=== PATIENT | male | born 1985 | race Caucasian/White ===

== ENCOUNTER 2018-08-21 01:15 | Emergency (ER) | payer BC ==
[2018-08-21] MEDS ORDERED: predniSONE 50 MG TAB PO STA (02:07)
[2018-08-21] MEDS ORDERED: diphenhydrAMINE 50 MG CAP PO STA (02:07)
[2018-08-21] MEDS ORDERED: FAMOTIDINE 20 MG TAB PO STA (02:08)
[2018-08-21 02:57] VITALS: BP 133/89; PULSE 95; RESP 17; TEMP 97.8
--- NOTE | 2018-08-21 03:31 | ED ---
General Adult HPI - General Chief complaint: Allergic Reaction Stated complaint: Allergic reaction Time Seen by Provider: 08/21/18 02:02 Source: patient, RN notes reviewed, old records reviewed Mode of arrival: ambulatory Limitations: no limitations - History of Present Illness Initial comments: 32-year-old male patient with no pertinent past medical history presents ED with approximately 3 days of rash on her back and torso which is pruritic, mild amount of periorbital edema. Patient reports this has been ongoing for approximately 3 days. Patient believes that is secondary to his using a new fabric softener. Patient denies any respiratory put complaints, patient has any wheezing, difficulty breathing. Patient has a nausea vomiting diarrhea or abdominal pain. Patient denies any swelling of the lips, sensation of throat closing. Patient has taken Benadryl at home with limited success. Patient has had similar ALLERGIC reactions in the past. Patient denies any personal history of anaphylaxis. Systemic: Pt denies fatigue, myalgia, fever/chills. Pt denies weakness, night sweats, weight loss. Neuro: Pt denies headache, visual disturbances, syncope or pre-syncope. HEENT: Pt denies ocular discharge or irritation, otalgia, rhinorrhea, pharyngitis or notable lymphadenopathy. Cardiopulmonary: Pt denies chest pain, SOB, heart palpitations, dyspnea on exertion. Abdominal/GI: Pt denies abdominal pain, n/v/d. : Pt denies dysuria, burning w/ urination, frequency/urgency. Denies new onset urinary or bowel incontinence. MSK: Pt denies myalgia, loss of strength or function in extremities. Neuro: Pt denies new onset weakness, paresthesias. - Related Data Previous Rx's Medication Instructions Recorded EPINEPHrine [Epipen 2-Johny] 0.3 mg IM ONCE PRN #1 pack 08/21/18 Famotidine [Pepcid] 20 mg PO Q24HR 5 Days #5 tablet 08/21/18 diphenhydrAMINE [Benadryl] 50 mg PO Q24HR 5 Days #5 capsule 08/21/18 predniSONE 50 mg PO DAILY #4 tab 08/21/18 Allergies Allergy/AdvReac Type Severity Reaction Status Date / Time No Known Allergies Allergy Verified 08/21/18 01:39 Review of Systems ROS Statement: Those systems with pertinent positive or pertinent negative responses have been documented in the HPI. ROS Other: All systems not noted in ROS Statement are negative. Past Medical History Past Medical History: No Reported History History of Any Multi-Drug Resistant Organisms: None Reported Past Surgical History: Orthopedic Surgery Past Psychological History: No Psychological Hx Reported Smoking Status: Never smoker Past Alcohol Use History: None Reported Past Drug Use History: None Reported General Exam - General Exam Comments Initial Comments: Constitutional: NAD, AOX3, Pt has pleasant affect. HEENT: NC/AT, trachea midline, neck supple, no lymphadenopathy. Posterior pharynx non erythematous, without exudates. External ears appear normal, without discharge. Mucous membranes moist. Eyes PERRLA, EOM intact. There is no scleral icterus. No pallor noted. Cardiopulmonary: RRR, no murmurs, rubs or gallops, no JVD noted. Lungs CTAB in anterior and posterior little. No peripheral edema. Abdominal exam: Abdomen soft and non-distended. Abdomen non-tender to palpation in all 4 quadrants. Bowel sounds active in LLQ. No hepatosplenomegaly. No ecchymosis Neuro: CN II-XII grossly intact. No nuchal rigidity. MSK: No posterior calf tenderness bilaterally, homans sign negative bilaterally. Posterior tibialis and radial pulse +2 bilaterally. Sensation intact in upper and lower extremities. Full active ROM in upper and lower extremities, 5/5 stregnth. Derm: Erythematous pruritic rash noted on back and torso, blanchable, pruritic. IMproved with admnistration of oral medications. Mild amount of periorbital edema noted. Limitations: no limitations Course Vital Signs 08/21/18 08/21/18 01:36 02:56 Temperature 97.7 F 97.8 F Pulse Rate 94 95 Respiratory 18 17 Rate Blood Pressure 120/80 133/89 O2 Sat by Pulse 96 100 Oximetry Medical Decision Making - Medical Decision Making 32-year-old male patient with no pertinent past medical history presents ED with approximately 3 days of rash on her back and torso which is pruritic, mild amount of periorbital edema. Patient reports this has been ongoing for approximately 3 days. Patient believes that is secondary to his using a new fabric softener. Patient denies any respiratory put complaints, patient has any wheezing, difficulty breathing. Patient has a nausea vomiting diarrhea or abdominal pain. Patient denies any swelling of the lips, sensation of throat closing. Patient has taken Benadryl at home with limited success. Patient has had similar ALLERGIC reactions in the past. Patient denies any personal history of anaphylaxis. Vital signs stable, afebrile. Physical exam displayed: Erythematous pruritic rash noted on back and torso, blanchable, pruritic. IMproved with admnistration of oral medications. Lungs clear to auscultation bilaterally, no wheeze. Mild amount of periorbital edema noted. Patient diagnosed general was lifting reaction. Patient discharged with oral course of prednisone, Pepcid and Benadryl. Patient also prescribed EpiPen. Patient to follow up with primary care provider in 1-2 days. Patient to return to ED if descends symptoms develop or condition worsens in any way. Strict return precautions, patient verbalized understanding. Case discussed with Dr. Barfield. Disposition Clinical Impression: Allergic reaction Disposition: HOME SELF-CARE Condition: Stable Instructions (If sedation given, give patient instructions): General Allergic Reaction (ED) Additional Instructions: Patient to adhere to previously discussed treatment plan and will take medication(s) as directed. Patient to follow up with PCP in 1-2 days. Patient to return to ED if symptoms do not improve. Please take medications as prescribed. Please follow-up with primary care provider in 1-2 days. Return to ER if condition worsens in any way. Return to ER immediately if any new facial swelling develops, sensation of shortness of breath, sensation of throat closing. Prescriptions: diphenhydrAMINE [Benadryl] 50 mg PO Q24HR 5 Days #5 capsule EPINEPHrine [Epipen 2-Johny] 0.3 mg IM ONCE PRN #1 pack PRN Reason: Anaphylaxis Famotidine [Pepcid] 20 mg PO Q24HR 5 Days #5 tablet predniSONE 50 mg PO DAILY #4 tab Is patient prescribed a controlled substance at d/c from ED?: No Referrals: Chase Haas MD [Primary Care Provider] - 1-2 days
== END 2018-08-21 03:38 | disposition home or self-care (01) ==
LOC: EC 01:15
DX: T78.49XA Other allergy, initial encounter (principal)
CPT/HCPCS: 99283; J7512

== ENCOUNTER → 2018-09-01 | Outpatient (CLI) | payer BC ==
--- NOTE | 2018-09-01 22:42 | MR ---
EXAMINATION TYPE: MR knee LT wo con DATE OF EXAM: 09/01/2018 COMPARISON: Outside left knee x-ray August 20, 2018. HISTORY: Lt knee increasing inner pain x 1 year, no trauma TECHNIQUE: Multiplanar, multisequence images of the knee is performed without IV contrast. FINDINGS: MEDIAL MENISCUS: Anterior and posterior horns are intact without tear. LATERAL MENISCUS: Anterior and posterior horns are intact without tear. CRUCIATE LIGAMENTS: The anterior and posterior cruciate ligaments are intact and unremarkable. COLLATERAL LIGAMENTS: The medial collateral ligament and lateral collateral ligament complex are inta ct and unremarkable. EXTENSOR MECHANISM: Visualized quadriceps and patellar tendons are intact. EFFUSION: No significant suprapatellar joint effusion. POPLITEAL CYST: No popliteal/lopez cyst. TRICOMPARTMENT SPACES: Mild to moderate narrowing inferior patellofemoral compartment is present. The medial and lateral tibiofemoral compartments are preserved. No significant spurring is seen. CARTILAGE: Some chondromalacia patella is present with thinning of articular cartilage along the infe rior medial aspect of the patellar pole. BONE MARROW SIGNAL: No focal abnormal marrow signal is appreciated. OTHER: No additional significant abnormality is appreciated. IMPRESSION: 1. No meniscal or ligamentous tear is seen. 2. Mild to moderate patellofemoral compartment degenerative changes as detailed above.
== END | disposition home or self-care (01) ==
LOC: RADMRIMAIN 17:55 → EDUNIT# 18:45
PROVIDERS: ATTEND Orthopaedic Surgery
DX: M17.12 Unilateral primary osteoarthritis, left knee (principal)

== ENCOUNTER 2018-09-02 20:49 | Emergency (ER) | payer BC, OTHER ==
[2018-09-02 21:21] VITALS: BP 138/80; PULSE 73; RESP 18; TEMP 98.4
== END 2018-09-02 22:25 | disposition home or self-care (01) ==
LOC: EC 20:49
DX: Z02.89 Encounter for other administrative examinations (principal)

== ENCOUNTER 2022-02-12 10:17 | Emergency (ER) | payer OTHER ==
[2022-02-12 11:04] VITALS: BP 120/73; PULSE 63; RESP 16; TEMP 97.9
[2022-02-12] MEDS ORDERED: SODIUM CHLORIDE 0.9% 1,000 ML IV STA (11:09)
[2022-02-12] MEDS ORDERED: HYDROmorphone 0.5 MG/0.5 ML SYRINGE IVP STA (11:09)
[2022-02-12 11:35] LABS: Basophils % (A) 0 %; Eosinophils # (A) 0.1 k/uL (0-0.7); Eosinophils % (A) 1 %; HCT 45.4 % (39.0-53.0); HGB 15.4 gm/dL (13.0-17.5); Lymphocytes % (A) 19 %; MCH 29.8 pg (25.0-35.0); MCHC 33.9 g/dL (31.0-37.0); Mean Platelet Volume 8.2; Monocytes # (A) 0.3 k/uL (0-1.0); Monocytes % (A) 6 %; Neutrophils # (A) 3.8 k/uL (1.3-7.7); Neutrophils % (A) 72 %; Platelet Count 219 k/uL (150-450); RBC 5.15 m/uL (4.30-5.90); RDW 12.2 % (11.5-15.5); WBC 5.2 k/uL (3.8-10.6)
--- NOTE | 2022-02-12 11:41 | ED ---
Abdominal Pain HPI - General Chief Complaint: Abdominal Pain Stated Complaint: swollen liver sent by urgent care Time Seen by Provider: 02/12/22 11:09 Source: patient, RN notes reviewed, old records reviewed Mode of arrival: ambulatory Limitations: no limitations - History of Present Illness Initial Comments: 36-year-old male presents to the emergency room with complaints of right upper quadrant fullness since October. He does have history of rheumatoid arthritis and takes Humira. 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 He states he does not take any other medication on a daily basis other than vitamins. He denies any fevers, no nausea vomiting or diarrhea. No right lower quadrant pain. No dysuria or penile discharge. No testicular pain. MD Complaint: abdominal pain -: month(s) (4) Location: RUQ Radiation: none Severity scale (1-10): 2 Quality: other (fullness) Consistency: constant Improves With: nothing Worsens With: nothing Associated Symptoms: denies other symptoms - Related Data Home Medications Medication Instructions Recorded Confirmed traZODone HCL 50 mg PO HS PRN 09/02/18 02/12/22 Adalimumab [Humira(Cf) Pen] 40 mg SQ Q14D 02/12/22 02/12/22 Kratom Powder(Unknown) 1 tsp PO HS PRN 02/12/22 02/12/22 Magnesium Powder(Unknown) 1 tsp PO HS 02/12/22 02/12/22 Milk Thistle(Unknown) 1 tab PO HS 02/12/22 02/12/22 Turmeric(Unknown) 1 tab PO HS 02/12/22 02/12/22 Vitamin C(Unknown) 1 tab PO HS 02/12/22 02/12/22 Vitamn D3(Unknown) 1 tab PO HS 02/12/22 02/12/22 Allergies Allergy/AdvReac Type Severity 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 ROS Other: All systems not noted in ROS Statement are negative. Past Medical History Past Medical History: Rheumatoid Arthritis (RA) History of Any Multi-Drug Resistant Organisms: None Reported Past Surgical History: Orthopedic Surgery Past Psychological History: No Psychological Hx Reported Smoking Status: Former smoker Past Alcohol Use History: None Reported Past Drug Use History: None Reported General Exam Limitations: no limitations General appearance: alert, in no apparent distress Head exam: Present: atraumatic, normocephalic, normal inspection Eye exam: Present: normal appearance. Absent: scleral icterus, conjunctival injection, periorbital swelling Neck exam: Present: full ROM. Absent: tenderness, meningismus Respiratory exam: Present: normal lung sounds bilaterally. Absent: respiratory distress, wheezes, rales, rhonchi, stridor, chest wall tenderness, accessory muscle use Cardiovascular Exam: Present: regular rate GI/Abdominal exam: Present: soft. Absent: distended, tenderness, guarding, rebound, rigid, mass Extremities exam: Present: normal inspection, full ROM, normal capillary refill. Absent: tenderness, pedal edema Back exam: Present: normal inspection, full ROM. Absent: tenderness, CVA tenderness (R), CVA tenderness (L), rash noted Neurological exam: Present: alert, oriented X3 Psychiatric exam: Present: normal affect, normal mood Skin exam: Present: warm, dry, intact, normal color. Absent: cyanosis, diaphoretic, petechiae, pallor Course Vital Signs 02/12/22 11:02 Temperature 97.9 F Pulse Rate 63 Respiratory 16 Rate Blood Pressure 120/73 O2 Sat by Pulse 100 Oximetry Medical Decision Making - Medical Decision Making 36-year-old male with a history of rheumatoid arthritis taking Humira, presents with right upper quadrant abdominal pain since October. Worse with palpation. Denies any nausea vomiting diarrhea or fevers. Labs show no evidence of leukocytosis. LFTs are within normal limits. No evidence of lactic acidosis. CT abdomen and pelvis shows no convincing evidence of an abdominal process. There are nonobstructing bilateral renal calculi. Patient states that he has been googling his symptoms and states it seems consistent with costochondritis. He was directed to increase fluid intake, take Tylenol and or Motrin as needed for any pain or discomfort and follow up with his primary care doctor. He is agreeable to this plan of care. Case discussed with Dr. Rodrigues. - Lab Data Result diagrams: 02/12/22 11:28 02/12/22 11:28 Lab Results 02/12/22 02/12/22 02/12/22 Range/Units 11:28 11:28 11:28 WBC 5.2 (3.8-10.6) k/uL RBC 5.15 (4.30-5.90) m/uL Hgb 15.4 (13.0-17.5) gm/dL Hct 45.4 (39.0-53.0) % MCV 88.0 (80.0-100.0) fL MCH 29.8 (25.0-35.0) pg MCHC 33.9 (31.0-37.0) g/dL RDW 12.2 (11.5-15.5) % Plt Count 219 (150-450) k/uL MPV 8.2 Neutrophils % 72 % Lymphocytes % 19 % Monocytes % 6 % Eosinophils % 1 % Basophils % 0 % Neutrophils # 3.8 (1.3-7.7) k/uL Lymphocytes # 1.0 (1.0-4.8) k/uL Monocytes # 0.3 (0-1.0) k/uL Eosinophils # 0.1 (0-0.7) k/uL Basophils # 0.0 (0-0.2) k/uL PT 10.1 (9.0-12.0) sec INR 0.9 (<1.2) APTT 27.3 (22.0-30.0) sec Sodium 137 (137-145) mmol/L Potassium 4.4 (3.5-5.1) mmol/L Chloride 97 L (98-107) mmol/L Carbon Dioxide 28 (22-30) mmol/L Anion Gap 12 mmol/L BUN 13 (9-20) mg/dL Creatinine 0.74 (0.66-1.25) mg/dL Est GFR (CKD-EPI)AfAm >90 (>60 ml/min/1.73 sqM) Est GFR (CKD-EPI)NonAf >90 (>60 ml/min/1.73 sqM) Glucose 96 (74-99) mg/dL Plasma Lactic Acid Grady (0.7-2.0) mmol/L Calcium 9.7 (8.4-10.2) mg/dL Total Bilirubin 0.7 (0.2-1.3) mg/dL AST 26 (17-59) U/L ALT 23 (4-49) U/L Alkaline Phosphatase 68 (38-126) U/L Total Protein 7.7 (6.3-8.2) g/dL Albumin 5.0 (3.5-5.0) g/dL Amylase 62 (30-110) U/L Lipase 66 (23-300) U/L 02/12/22 Range/Units 11:28 WBC (3.8-10.6) k/uL RBC (4.30-5.90) m/uL Hgb (13.0-17.5) gm/dL Hct (39.0-53.0) % MCV (80.0-100.0) fL MCH (25.0-35.0) pg MCHC (31.0-37.0) g/dL RDW (11.5-15.5) % Plt Count (150-450) k/uL MPV Neutrophils % % Lymphocytes % % Monocytes % % Eosinophils % % Basophils % % Neutrophils # (1.3-7.7) k/uL Lymphocytes # (1.0-4.8) k/uL Monocytes # (0-1.0) k/uL Eosinophils # (0-0.7) k/uL Basophils # (0-0.2) k/uL PT (9.0-12.0) sec INR (<1.2) APTT (22.0-30.0) sec Sodium (137-145) mmol/L Potassium (3.5-5.1) mmol/L Chloride (98-107) mmol/L Carbon Dioxide (22-30) mmol/L Anion Gap mmol/L BUN (9-20) mg/dL Creatinine (0.66-1.25) mg/dL Est GFR (CKD-EPI)AfAm (>60 ml/min/1.73 sqM) Est GFR (CKD-EPI)NonAf (>60 ml/min/1.73 sqM) Glucose (74-99) mg/dL Plasma Lactic Acid Grady 0.7 (0.7-2.0) mmol/L Calcium (8.4-10.2) mg/dL Total Bilirubin (0.2-1.3) mg/dL AST (17-59) U/L ALT (4-49) U/L Alkaline Phosphatase (38-126) U/L Total Protein (6.3-8.2) g/dL Albumin (3.5-5.0) g/dL Amylase (30-110) U/L Lipase (23-300) U/L Disposition Clinical Impression: Costochondritis, Abdominal pain Disposition: HOME SELF-CARE Condition: Good Instructions (If sedation given, give patient instructions): Costochondritis (ED), Abdominal Pain (ED) Additional Instructions: Increase your fluid intake. Tylenol and or Motrin as needed for pain. Follow- up with the primary care doctor this week. Return with any new or concerning symptoms. Is patient prescribed a controlled substance at d/c from ED?: No Referrals: None,Stated [Primary Care Provider] - 1-2 days Time of Disposition: 13:24
[2022-02-12 11:45] LABS: INR 0.9 (<1.2); Partial Thromboplastin Time 27.3 sec (22.0-30.0); Prothrombin Time 10.1 sec (9.0-12.0)
[2022-02-12 11:57] LABS: ALT 23 U/L (4-49); AST 26 U/L (17-59); African American GFR (CKD) >90 (>60 ml/min/1.73 sqM); Alkaline Phosphatase 68 U/L (38-126); Amylase 62 U/L (30-110); Anion Gap 12 mmol/L; Blood Urea Nitrogen 13 mg/dL (9-20); Calcium 9.7 mg/dL (8.4-10.2); Carbon Dioxide 28 mmol/L (22-30); Chloride 97 mmol/L (98-107); Glucose 96 mg/dL (74-99); Lipase 66 U/L (23-300); Non-African American GFR(CKD) >90 (>60 ml/min/1.73 sqM); Potassium 4.4 mmol/L (3.5-5.1); Sodium 137 mmol/L (137-145); Total Bilirubin 0.7 mg/dL (0.2-1.3); Total Protein 7.7 g/dL (6.3-8.2)
--- NOTE | 2022-02-12 13:13 | CT ---
EXAMINATION TYPE: CT abdomen pelvis w con CT DLP: 671.5 mGycm, Automated exposure control for dose reduction was used. DATE OF EXAM: 02/12/2022 12:36 PM COMPARISON: None CLINICAL INDICATION:Male, 36 years old with history of abdominal pain; c/o pain under right side of r ibs TECHNIQUE: Axial CT of the abdomen and pelvis. Sagittal and coronal reformats were created on a [employer] workstation. Contrast used:100 mL of Isovue 300 with IV Contrast, Oral contrast used: without Oral Contrast FINDINGS: LOWER CHEST: Unremarkable ABDOMEN LIVER: Unremarkable GALLBLADDER AND BILE DUCTS: Unremarkable. PANCREAS: Unremarkable. SPLEEN: Unremarkable. ADRENAL GLANDS: Unremarkable. KIDNEYS AND URETERS: No evidence of hydronephrosis. Nonobstructing bilateral renal calculi measuring up to 3 mm on the right and 3 mm on the left. PELVIS BLADDER: Unremarkable REPRODUCTIVE: Unremarkable. ABDOMEN & PELVIS STOMACH AND BOWEL: No evidence of bowel obstruction. The appendix isn't visualized and appears normal . There is mild fat stranding changes seen around right paracolic gutter without evidence for wall th ickening. PERITONEUM: No evidence of pneumoperitoneum or free fluid. VASCULATURE: No evidence of aortic aneurysm. Anatomic variant common origin of the celiac trunk and s uperior mesenteric artery. There is circumaortic left renal veins. MUSCULOSKELETAL: No acute osseous abnormalities LYMPH NODES: No gross evidence for lymphadenopathy. SOFT TISSUE/ABDOMINAL WALL: Unremarkable IMPRESSION: 1. No convincing evidence for acute abdominal process. There is slight limited evaluation secondary to paucity of intraabdominal fat. Mild inflammation changes are seen along the paracolic gutter on th e right however the colon does not demonstrate wall thickening. 2. Obstructing bilateral renal calculi.
== END 2022-02-12 13:35 | disposition home or self-care (01) ==
LOC: EC 10:17
DX: M94.0 Chondrocostal junction syndrome [Tietze] (principal); R10.9 Unspecified abdominal pain; Z87.891 Personal history of nicotine dependence; Z91.09 Other allergy status, other than to drugs and biological substances
CPT/HCPCS: 36415; 80053; 82150; 83605; 83690; 85025; 85610; 85730; 74177; 99284; 96360; Q9967

== ENCOUNTER → 2022-08-19 | Outpatient (CLI) | payer BC ==
--- NOTE | 2022-08-19 11:30 | US ---
EXAMINATION TYPE: US abdomen complete DATE OF EXAM: 08/19/2022 COMPARISON: CT 02/12/2022 CLINICAL HISTORY: R10.11. RUQ pain. Hx kidney stones. TECHNIQUE: Multiple sonographic images of the abdomen are obtained. FINDINGS: EXAM MEASUREMENTS: Liver Length: 15.0 cm Gallbladder Wall: 0.21 cm CBD: 0.49 cm Spleen: 8.7 cm Right Kidney: 11.8 x 6.5 x 4.9 cm Left Kidney: 11.7 x 5.8 x 5.9 cm BUSINESS PROCESS LEAD NOTES: Limited due to gas. Pancreas: Slightly limited. Duct measures 0.1 cm. Liver: No abnormalities seen. Gallbladder: Internal echoes/debris seen within the gallbladder. Arrow shown. Evidence for sonographic Baires's sign: No CBD: Portions seen appear wnl Spleen: Appears wnl Right Kidney: Hyperechoic focus seen upper pole: 0.4 x 0.5 x 0.5 cm. Left Kidney: Hyperechoic focus seen at mid: 0.5 x 0.4 x 0.4 cm. Upper IVC: Appears wnl Abd Aorta: Portions seen appear wnl. Iliacs were obscured. IMPRESSION: 1. Nonobstructing bilateral renal stones. 2. Gallbladder polyp, or debris or cholelithiasis.
== END | disposition home or self-care (01) ==
LOC: RADUSWWP 06:40
PROVIDERS: ATTEND Family Medicine
DX: N20.0 Calculus of kidney (principal)
CPT/HCPCS: 76700

== ENCOUNTER 2022-11-26 14:15 | Emergency (ER) | payer BC ==
[2022-11-26] MEDS ORDERED: ONDANSETRON 4 MG/2 ML VIAL IVP STA (15:11)
[2022-11-26] MEDS ORDERED: MORPHINE SULFATE 4 MG/ML SYRINGE IVP STA (15:11)
--- NOTE | 2022-11-26 15:11 | ED ---
General Adult HPI - General Chief complaint: Urogenital Stated complaint: abd pain Source: patient Mode of arrival: ambulatory Limitations: no limitations - History of Present Illness Initial comments: Saad is a healthy 37-year-old male who presents ER today for evaluation of r ight-sided flank pain. Patient reports yesterday he had some pain in his right lower quadrant today the pain is of his right flank. Patient states he has urge to urinate but can only dribble. Not had any gross hematuria in the past 2 days but does report he had an episode of gross hematuria last week. No history of kidney stones. No fevers or chills. He has nausea and vomiting with the pain. No change in bowel habits. - Related Data Home Medications Medication Instructions Recorded Confirmed traZODone HCL 50 mg PO HS PRN 09/02/18 02/12/22 Adalimumab [Humira(Cf) Pen] 40 mg SQ Q14D 02/12/22 02/12/22 Kratom Powder(Unknown) 1 tsp PO HS PRN 02/12/22 02/12/22 Magnesium Powder(Unknown) 1 tsp PO HS 02/12/22 02/12/22 Milk Thistle(Unknown) 1 tab PO HS 02/12/22 02/12/22 Turmeric(Unknown) 1 tab PO HS 02/12/22 02/12/22 Vitamin C(Unknown) 1 tab PO HS 02/12/22 02/12/22 Vitamn D3(Unknown) 1 tab PO HS 02/12/22 02/12/22 Previous Rx's Medication Instructions Recorded HYDROcodone/APAP 5-325MG [[place] 1 tab PO Q6HR PRN 3 Days #8 tab 11/26/22 5-325] Ibuprofen [Motrin] 600 mg PO Q6HR PRN #30 tab 11/26/22 Ondansetron Odt [Zofran Odt] 4 mg PO Q8HR PRN #12 tab 11/26/22 Tamsulosin [Flomax] 0.4 mg PO DAILY #7 cap 11/26/22 Allergies Allergy/AdvReac Type Severity 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 ROS Other: All systems not noted in ROS Statement are negative. Past Medical History Past Medical History: Rheumatoid Arthritis (RA) History of Any Multi-Drug Resistant Organisms: None Reported Past Surgical History: Orthopedic Surgery Past Psychological History: No Psychological Hx Reported Smoking Status: Former smoker Past Alcohol Use History: None Reported Past Drug Use History: None Reported General Exam - General Exam Comments Initial Comments: Physical Exam GENERAL: Patient is well-developed and well-nourished. Patient is nontoxic and well-hydrated and is in no distress. HENT: Normocephalic, Atraumatic. EYES: PERRL, EOMI PULMONARY: Unlabored respirations. No audible rales rhonchi or wheezing was noted. CARDIOVASCULAR: Warm and well profused ABDOMEN: Patient with percussion in the right flank, pain palpation in the right lower q uadrant SKIN: Skin is clear with no lesions or rashes and otherwise unremarkable. : Deferred NEUROLOGIC: Patient is alert and oriented x3. Moving all extremities spontaneously MUSCULOSKELETAL: Normal extremities with adequate strength and full range of motion. No lower extremity swelling or edema. No calf tenderness. PSYCHIATRIC: Normal psychiatric evaluation. Limitations: no limitations Course Vital Signs 11/26/22 11/26/22 11/26/22 14:19 16:15 17:35 Temperature 97.9 F 98.6 F 98.2 F Pulse Rate 62 56 L 69 Respiratory 18 19 18 Rate Blood Pressure 130/84 137/78 123/69 O2 Sat by Pulse 100 99 97 Oximetry Medical Decision Making - Medical Decision Making Was pt. sent in by a medical professional or institution (, PA, COURT OFFICER, urgent care, hospital, or senior living...) When possible be specific @ -No Did you speak to anyone other than the patient for history (EMS, parent, family, police, friend...)? What history was obtained from this source @ -Family member at bedside Did you review nursing and triage notes (agree or disagree)? Why? @ -I reviewed and agree with nursing and triage notes Were old charts reviewed (outside hosp., previous admission, EMS record, old EKG, old radiological studies, urgent care reports/EKG's, senior living records)? Report findings @ -No old charts were reviewed Differential Diagnosis (chest pain, altered mental status, abdominal pain women, abdominal pain men, vaginal bleeding, weakness, fever, dyspnea, syncope, headache, dizziness, GI bleed, back pain, seizure, CVA, palpatations, mental health, musculoskeletal)? @ -Differential Abdominal Pain Men: Appendicitis, cholecystitis, diverticulosis, ischemic bowel, pancreatitis, hepatitis, UTI, gastroenteritis, AAA, incarcerated hernia, bowel obstruction, constipation, inflammatory bowel, hepatitis, peptic ulcer disease, splenic infarction, perforated viscus, testicular torsion, this is not meant to be an all-inclusive list EKG interpreted by me (3pts min.). @ -As above X-rays interpreted by me (1pt min.). @ -None done CT interpreted by me (1pt min.). @ -Evaluated the CT and I do see a very small stone at the UVJ with mild hydro-no evidence of appendicitis U/S interpreted by me (1pt. min.). @ -None done What testing was considered but not performed or refused? (CT, X-rays, U/S, labs)? Why? @ -Renal ultrasound was considered however given the patient had periumbilical pain moving to the right lower quadrant there was concern for appendicitis and it was determined that CT would be a better diagnostic modality What meds were considered but not given or refused? Why? @ -None Did you discuss the management of the patient with other professionals (professionals i.e. , PA, COURT OFFICER, lab, RT, psych nurse, addiction social worker, senior financial accountant, teacher, vessel traffic officer, case technician)? Give summary @ -No Was smoking cessation discussed for >3mins.? @ -No Was critical care preformed (if so, how long)? @ -No Were there social determinants of health that impacted care today? How? (Homelessness, low income, unemployed, alcoholism, drug addiction, transportation, low edu. Level, literacy, decrease access to med. care, half-way, rehab)? @ -No Was there de-escalation of care discussed even if they declined (Discuss DNR or withdrawal of care, Hospice)? DNR status @ -No What co-morbidities impacted this encounter? (DM, HTN, Smoking, COPD, CAD, Cancer, CVA, ARF, Chemo, Hep., AIDS, mental health diagnosis, sleep apnea, morbid obesity)? @ -None Was patient admitted / discharged? Hospital course, mention meds given and route, prescriptions, significant lab abnormalities, going to OR and other pertinent info. @ -Discharge Undiagnosed new problem with uncertain prognosis? @ -No Drug Therapy requiring intensive monitoring for toxicity (Heparin, Nitro, Insulin, Cardizem)? @ -No Were any procedures done? @ -No Diagnosis/symptom? @ -3 mm right UVJ stone with hydronephrosis Acute, or Chronic, or Acute on Chronic? @ -Acute Uncomplicated (without systemic symptoms) or Complicated (systemic symptoms)? @ -default Side effects of treatment? @ -No Exacerbation, Progression, or Severe Exacerbation? @ -No Poses a threat to life or bodily function? How? (Chest pain, USA, [place], pneumonia, PE, COPD, DKA, ARF, appy, cholecystitis, CVA, Diverticulitis, Homicidal, Suicidal, threat to staff... and all critical care pts) @ -No - Lab Data Result diagrams: 11/26/22 15:10 11/26/22 15:10 Lab Results 11/26/22 11/26/22 11/26/22 Range/Units 15:10 15:10 16:06 WBC 11.1 H (3.8-10.6) k/uL RBC 5.24 (4.30-5.90) m/uL Hgb 15.7 (13.0-17.5) gm/dL Hct 46.2 (39.0-53.0) % MCV 88.2 (80.0-100.0) fL MCH 30.0 (25.0-35.0) pg MCHC 34.0 (31.0-37.0) g/dL RDW 11.8 (11.5-15.5) % Plt Count 227 (150-450) k/uL MPV 7.7 Neutrophils % 82 % Lymphocytes % 10 % Monocytes % 6 % Eosinophils % 1 % Basophils % 0 % Neutrophils # 9.0 H (1.3-7.7) k/uL Lymphocytes # 1.1 (1.0-4.8) k/uL Monocytes # 0.7 (0-1.0) k/uL Eosinophils # 0.1 (0-0.7) k/uL Basophils # 0.0 (0-0.2) k/uL Sodium 135 L (137-145) mmol/L Potassium 4.1 (3.5-5.1) mmol/L Chloride 99 (98-107) mmol/L Carbon Dioxide 25 (22-30) mmol/L Anion Gap 11 mmol/L BUN 13 (9-20) mg/dL Creatinine 0.72 (0.66-1.25) mg/dL Est GFR (CKD-EPI)AfAm >90 (>60 ml/min/1.73 sqM) Est GFR (CKD-EPI)NonAf >90 (>60 ml/min/1.73 sqM) Glucose 89 (74-99) mg/dL Calcium 9.5 (8.4-10.2) mg/dL Total Bilirubin 0.6 (0.2-1.3) mg/dL AST 37 (17-59) U/L ALT 36 (4-49) U/L Alkaline Phosphatase 109 (38-126) U/L Total Protein 8.0 (6.3-8.2) g/dL Albumin 5.0 (3.5-5.0) g/dL Urine Color Yellow Urine Appearance Cloudy (Clear) Urine pH 7.5 (5.0-8.0) Ur Specific Sulph[place] 1.036 H (1.001-1.035) Urine Protein Trace H (Negative) Urine Glucose (UA) Negative (Negative) Urine Ketones 2+ H (Negative) Urine Blood Trace H (Negative) Urine Nitrite Negative (Negative) Urine Bilirubin Negative (Negative) Urine Urobilinogen <2.0 (<2.0) mg/dL Ur Leukocyte Esterase Negative (Negative) Urine RBC 42 H (0-5) /hpf Urine WBC <1 (0-5) /hpf Amorphous Sediment Moderate H (None) /hpf Urine Bacteria Rare H (None) /hpf Urine Mucus Rare H (None) /hpf Disposition Clinical Impression: Kidney stone Disposition: HOME SELF-CARE Condition: Stable Instructions (If sedation given, give patient instructions): Kidney Stones (ED) Prescriptions: Tamsulosin [Flomax] 0.4 mg PO DAILY #7 cap Ibuprofen [Motrin] 600 mg PO Q6HR PRN #30 tab PRN Reason: Pain HYDROcodone/APAP 5-325MG [[place] 5-325] 1 tab PO Q6HR PRN 3 Days #8 tab PRN Reason: Pain Ondansetron Odt [Zofran Odt] 4 mg PO Q8HR PRN #12 tab PRN Reason: Nausea Is patient prescribed a controlled substance at d/c from ED?: No Referrals: Shon Aggarwal MD [Primary Care Provider] - 1-2 days Travis Whiteside MD [STAFF PHYSICIAN] - 1-2 days
[2022-11-26 15:25] LABS: Basophils % (A) 0 %; Eosinophils # (A) 0.1 k/uL (0-0.7); Eosinophils % (A) 1 %; HCT 46.2 % (39.0-53.0); HGB 15.7 gm/dL (13.0-17.5); Lymphocytes # (A) 1.1 k/uL (1.0-4.8); Lymphocytes % (A) 10 %; MCV 88.2 fL (80.0-100.0); Mean Platelet Volume 7.7; Monocytes # (A) 0.7 k/uL (0-1.0); Monocytes % (A) 6 %; Neutrophils % (A) 82 %; Platelet Count 227 k/uL (150-450); RBC 5.24 m/uL (4.30-5.90); RDW 11.8 % (11.5-15.5); WBC 11.1 k/uL (3.8-10.6)
[2022-11-26 15:37] LABS: ALT 36 U/L (4-49); AST 37 U/L (17-59); African American GFR (CKD) >90 (>60 ml/min/1.73 sqM); Alkaline Phosphatase 109 U/L (38-126); Anion Gap 11 mmol/L; Blood Urea Nitrogen 13 mg/dL (9-20); Calcium 9.5 mg/dL (8.4-10.2); Carbon Dioxide 25 mmol/L (22-30); Chloride 99 mmol/L (98-107); Glucose 89 mg/dL (74-99); Non-African American GFR(CKD) >90 (>60 ml/min/1.73 sqM); Potassium 4.1 mmol/L (3.5-5.1); Sodium 135 mmol/L (137-145); Total Bilirubin 0.6 mg/dL (0.2-1.3)
--- NOTE | 2022-11-26 16:01 | CT ---
EXAMINATION TYPE: CT abdomen pelvis w con CT DLP: 653.8 mGycm, Automated exposure control for dose reduction was used. DATE OF EXAM: 11/26/2022 3:51 PM COMPARISON: CT abdomen pelvis most recent from 02/12/2022 . CLINICAL INDICATION:Male, 37 years old with history of RLQ pain; abdominal pain, urine retention TECHNIQUE: Standard CT of the abdomen and pelvis following the administration of 100 cc of Isovue 3 00 IV contrast material. Coronal and sagittal reformats were performed. FINDINGS: LOWER CHEST: Unremarkable ABDOMEN LIVER: Mildly enlarged measuring 19.5 cm in CC dimension. No focal lesion. GALLBLADDER AND BILE DUCTS: Gallbladder is not definitively visualized and may be surgically absent v ersus contracted. No biliary ductal dilatation. PANCREAS: Unremarkable. SPLEEN: Unremarkable. ADRENAL GLANDS: Unremarkable. KIDNEYS AND URETERS: Mild right hydroureteronephrosis with a obstructing 3 mm calculus at the uretero vesical junction. Nonobstructive 2 mm left renal calculus. Kidneys enhance symmetrically. Contrast is demonstrated only within the left collecting system on the delayed phase. PELVIS BLADDER: Incompletely distended but grossly unremarkable. REPRODUCTIVE: Coarse calcifications of the prostate gland are identified. ABDOMEN & PELVIS STOMACH AND BOWEL: Stomach and duodenum are unremarkable. No focal bowel wall thickening or surroundi ng inflammatory changes. The appendix is within normal limits. No evidence of bowel obstruction. PERITONEUM: No evidence of pneumoperitoneum or free fluid. VASCULATURE: No evidence of aortic aneurysm. MUSCULOSKELETAL: No acute osseous abnormalities LYMPH NODES: No gross evidence for lymphadenopathy. SOFT TISSUE/ABDOMINAL WALL: Unremarkable IMPRESSION: Mild right hydroureteronephrosis with an obstructing 3 mm calculus at the ureterovesical junction.
[2022-11-26] MEDS ORDERED: KETOROLAC 15 MG/ML 1 ML VIAL IVP STA (16:32)
[2022-11-26 16:38] LABS: Amorphous Sediment,Urine Moderate /hpf; Appearance,Urine Cloudy (Clear); Bacteria,Urine Rare /hpf; Bilirubin,Urine Negative (Negative); Blood,Urine Trace (Negative); Color,Urine Yellow; Glucose,Urine (UA) Negative (Negative); Ketones,Urine 2+ (Negative); Leukocyte Esterase,Urine Negative (Negative); Mucus,Urine Rare /hpf; Nitrite,Urine Negative (Negative); PH, Urine 7.5 (5.0-8.0); Protein,Urine Trace (Negative); RBC,Urine 42 /hpf (0-5); Specific Gravity,Urine 1.036 (1.001-1.035); Urobilinogen,Urine <2.0 mg/dL (<2.0); WBC,Urine <1 /hpf (0-5)
[2022-11-26 17:35] VITALS: BP 123/69; PULSE 69; RESP 18; TEMP 98.2
== END 2022-11-26 17:52 | disposition home or self-care (01) ==
LOC: EC 14:15
DX: N13.2 Hydronephrosis with renal and ureteral calculous obstruction (principal); M06.9 Rheumatoid arthritis, unspecified; Z87.891 Personal history of nicotine dependence; Z91.048 Other nonmedicinal substance allergy status; Z79.899 Other long term (current) drug therapy
CPT/HCPCS: 36415; 80053; 85025; 81001; 74177; 99284; 96374; 96375 ×2; J2270; J2405; J1885; Q9967

== ENCOUNTER → 2024-01-08 | Outpatient (CLI) | payer BC ==
--- NOTE | 2024-01-29 10:01 | US ---
Site ID [facility] Patient Saad Woo L ID [id number] Age/Gender: 38Y, M Order # N/A Procedure US bladder Date 01/08/2024 4:01:00 PM INDICATION: Patient age: Male; 38 year old; Reason for study: Difficulty voiding, recent passage of renal stone COMPARISON: CT abdomen and pelvis 11/26/2022. TECHNIQUE: Multiple chamberlain-scale and color color Doppler ultrasound images were obtained of the urinary bladder. FINDINGS: URINARY BLADDER: within normal limits. No wall thickening. Bilateral ureteral jets identified. IMPRESSION: Unremarkable ultrasound of the urinary bladder.
== END | disposition home or self-care (01) ==
LOC: RADUSWWP 12:00
PROVIDERS: ATTEND Family Medicine
DX: N20.0 Calculus of kidney (principal)
CPT/HCPCS: 76857

== ENCOUNTER 2024-05-05 16:52 | Emergency (ER) | payer BC ==
[2024-05-05 17:00] VITALS: TEMP 97.6
--- NOTE | 2024-05-05 17:03 | ED ---
Seizure HPI - General Chief Complaint: Seizure Stated Complaint: seizure Time Seen by Provider: 05/05/24 16:56 Source: patient, EMS, RN notes reviewed, old records reviewed Mode of arrival: ambulatory Limitations: no limitations - History of Present Illness Initial Comments: This is a 38-year-old male for new onset seizure patient is currently awake and alert was initially postictal. Patient is going through processes of having evaluation of a neck tumor per the and possible surgery. Patient did recently started on tramadol for neck pain MD Complaint: seizure -: hour(s) Description of Episode: loss of consciousness, tonic-clonic movement -: second(s) Witnessed: no Seizure History: other (We started on tramadol) Place: home Possible Precipitating Event: none Associated Symptoms: denies other symptoms Treatments Prior to Arrival: none - Related Data Home Medications Medication Instructions Recorded Confirmed traZODone HCL 50 mg PO HS PRN 09/02/18 02/12/22 Adalimumab [Humira(Cf) Pen] 40 mg SQ Q14D 02/12/22 02/12/22 Kratom Powder(Unknown) 1 tsp PO HS PRN 02/12/22 02/12/22 Magnesium Powder(Unknown) 1 tsp PO HS 02/12/22 02/12/22 Milk Thistle(Unknown) 1 tab PO HS 02/12/22 02/12/22 Turmeric(Unknown) 1 tab PO HS 02/12/22 02/12/22 Vitamin C(Unknown) 1 tab PO HS 02/12/22 02/12/22 Vitamn D3(Unknown) 1 tab PO HS 02/12/22 02/12/22 Previous Rx's Medication Instructions Recorded HYDROcodone/APAP 5-325MG [[place] 1 tab PO Q6HR PRN 3 Days #8 tab 11/26/22 5-325] Ibuprofen [Motrin] 600 mg PO Q6HR PRN #30 tab 11/26/22 Ondansetron Odt [Zofran Odt] 4 mg PO Q8HR PRN #12 tab 11/26/22 Tamsulosin [Flomax] 0.4 mg PO DAILY #7 cap 11/26/22 Allergies Allergy/AdvReac Type Severity 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 ROS Other: All systems not noted in ROS Statement are negative. 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 Absent: scleral icterus, conjunctival injection, periorbital swelling ENT exam: Present: normal exam, mucous membranes moist Neck exam: Present: normal inspection. Absent: tenderness, meningismus, lym phadenopathy Respiratory exam: Present: normal lung sounds bilaterally. Absent: respiratory distress, wheezes, rales, rhonchi, stridor Cardiovascular Exam: Present: regular rate, normal rhythm, normal heart sounds. Absent: systolic murmur, diastolic murmur, rubs, gallop, clicks GI/Abdominal exam: Present: soft, normal bowel sounds. Absent: distended, tenderness, guarding, rebound, rigid Extremities exam: Present: normal inspection, full ROM, normal capillary refill. Absent: tenderness, pedal edema, joint swelling, calf tenderness Back exam: Present: normal inspection Neurological exam: Present: alert, oriented X3, CN II-XII intact Psychiatric exam: Present: normal affect, normal mood Skin exam: Present: warm, dry, intact, normal color. Absent: rash Course Vital Signs 05/05/24 05/05/24 16:56 20:44 Temperature 97.6 F Pulse Rate 94 60 Respiratory 16 14 Rate Blood Pressure 136/80 129/73 O2 Sat by Pulse 100 95 Oximetry - Reevaluation(s) Reevaluation #1: Medical records reviewed Reevaluation #2: Patient symptoms unchanged Reevaluation #3: Patient informed of results and questions answered Reevaluation #4: Was pt. sent in by a medical professional or institution (, PA, URBAN GARDENING SPECIALIST, urgent care, hospital, or jail...) When possible be specific @ -no Did you speak to anyone other than the patient for history (EMS, parent, family, police, friend...)? What history was obtained from this source @ -no Did you review nursing and triage notes (agree or disagree)? Why? @ -agree Are old charts reviewed (outside hosp., previous admission, EMS record, old EKG, old radiological studies, urgent care reports/EKG's, jail records)? Report findings @ -yes Differential Diagnosis (chest pain, altered mental status, abdominal pain women, abdominal pain men, vaginal bleeding, weakness, fever, dyspnea, syncope, headache, dizziness, GI bleed, back pain, seizure, CVA, palpatations, mental health, musculoskeletal)? @ -prior EKG interpreted by me (3pts min.). @ -yes X-rays interpreted by me (1pt min.). @ -no CT interpreted by me (1pt min.). @ -yes negative for acute disease U/S interpreted by me (1pt. min.). @ -no What testing was considered but not performed or refused? (CT, X-rays, U/S, labs)? Why? @ -none What meds were considered but not given or refused? Why? @ -none Did you discuss the management of the patient with other professionals (professionals i.e. , PA, URBAN GARDENING SPECIALIST, lab, RT, psych nurse, elementary school social worker, world language teacher, teacher, freedom of information officer, case reviewer)? Give summary @ -no Was smoking cessation discussed for >3mins.? @ -no Was critical care preformed (if so, how long)? @ -no Were there social determinants of health that impacted care today? How? (Homelessness, low income, unemployed, alcoholism, drug addiction, transportation, low edu. Level, literacy, decrease access to med. care, assisted, rehab)? @ -none Was there de-escalation of care discussed even if they declined (Discuss DNR or withdrawal of care, Hospice)? DNR status @ -no What co-morbidities impacted this encounter? (DM, HTN, Smoking, COPD, CAD, Cancer, CVA, ARF, Chemo, Hep., AIDS, mental health diagnosis, sleep apnea, morbid obesity)? @ -none Was patient admitted / discharged? Hospital course, mention meds given and route, prescriptions, significant lab abnormalities, going to OR and other pertinent info. @ - 38 male to ER with neck pain neck mass is found to be on tramadol and did have a seizure today. Patient has no recurrent seizure activity here in the ER feels well and will be discharged Discharge Undiagnosed new problem with uncertain prognosis? @ -no Drug Therapy requiring intensive monitoring for toxicity (Heparin, Nitro, Insulin, Cardizem)? @ -no Were any procedures done? @ -no Diagnosis/symptom? @ -New onset seizure Acute, or Chronic, or Acute on Chronic? @ -Acute Uncomplicated (without systemic symptoms) or Complicated (systemic symptoms)? @ -Complicated Side effects of treatment? @ -no Exacerbation, Progression, or Severe Exacerbation? @ -exacerbation Poses a threat to life or bodily function? How? (Chest pain, [place], [place], pneumonia, PE, COPD, DKA, ARF, appy, cholecystitis, CVA, Diverticulitis, Homicidal, Suicidal, threat to staff... and all critical care pts) @ -With seizure activity new onset seizure suspect tramadol Reevaluation #5: Differential Seizure: Recurrent seizure disorder, febrile seizure, alcohol withdrawal, stimulants, meningitis, encephalitis, intercranial hemorrhage, intracranial tumor, stroke, eclampsia, thyrotoxicosis, hypocalcemia, hyponatremia, hypernatremia, hypomagnesemia, psychogenic, this is not meant to be an all-inclusive list. Medical Decision Making - Medical Decision Making 38 male to ER with neck pain neck mass is found to be on tramadol and did have a seizure today. Patient has no recurrent seizure activity here in the ER feels well and will be discharged - Lab Data Result diagrams: 05/05/24 19:38 05/05/24 19:38 Lab Results 05/05/24 05/05/24 05/05/24 Range/Units 19:38 19:38 19:38 WBC 9.5 (3.8-10.6) k/uL RBC 5.01 (4.30-5.90) m/uL Hgb 15.1 (13.0-17.5) gm/dL Hct 43.8 (39.0-53.0) % MCV 87.3 (80.0-100.0) fL MCH 30.1 (25.0-35.0) pg MCHC 34.4 (31.0-37.0) g/dL RDW 11.5 (11.5-15.5) % Plt Count 186 (150-450) k/uL MPV 7.7 Neutrophils % 82 % Lymphocytes % 12 % Monocytes % 4 % Eosinophils % 1 % Basophils % 0 % Neutrophils # 7.7 (1.3-7.7) k/uL Lymphocytes # 1.1 (1.0-4.8) k/uL Monocytes # 0.4 (0-1.0) k/uL Eosinophils # 0.1 (0-0.7) k/uL Basophils # 0.0 (0-0.2) k/uL Sodium 134 L (137-145) mmol/L Potassium 4.0 (3.5-5.1) mmol/L Chloride 102 (98-107) mmol/L Carbon Dioxide 27 (22-30) mmol/L Anion Gap 5 mmol/L BUN 14 (9-20) mg/dL Creatinine 0.62 L (0.66-1.25) mg/dL Est GFR (CKD-EPI)AfAm >90 (>60 ml/min/1.73 sqM) Est GFR (CKD-EPI)NonAf >90 (>60 ml/min/1.73 sqM) Glucose 92 (74-99) mg/dL Calcium 8.7 (8.4-10.2) mg/dL Magnesium 2.2 (1.6-2.3) mg/dL Total Bilirubin 0.5 (0.2-1.3) mg/dL AST 33 (17-59) U/L ALT 27 (4-49) U/L Alkaline Phosphatase 75 (38-126) U/L Total Protein 6.8 (6.3-8.2) g/dL Albumin 4.3 (3.5-5.0) g/dL Salicylates <1.0 mg/dL Urine Opiates Screen Not Detected (NotDetected) Ur Oxycodone Screen Not Detected (NotDetected) Urine Methadone Screen Not Detected (NotDetected) Acetaminophen <10.0 ug/mL Ur Barbiturates Screen Not Detected (NotDetected) U Tricyclic Antidepress Not Detected (NotDetected) Ur Phencyclidine Scrn Not Detected (NotDetected) Ur Amphetamines Screen Not Detected (NotDetected) U Methamphetamines Scrn Not Detected (NotDetected) U Benzodiazepines Scrn Not Detected (NotDetected) Urine Cocaine Screen Not Detected (NotDetected) U Marijuana (THC) Screen Not Detected (NotDetected) Serum Alcohol <10 mg/dL - EKG Data -: EKG Interpreted by Me (EKG is sinus 78 [place] 163 QRS 107 QTc 444) - Radiology Data Radiology results: report reviewed (CT brain C-spine negative for acute disease), image reviewed Disposition Clinical Impression: New onset seizure, Neck pain, Neck mass Disposition: HOME SELF-CARE Condition: Fair Instructions (If sedation given, give patient instructions): Seizure/Epilepsy Discharge Instructions & Follow-Up Is patient prescribed a controlled substance at d/c from ED?: No Referrals: Shon Aggarwal MD [Primary Care Provider] - 1-2 days Time of Disposition: 20:30
[2024-05-05] MEDS: LORazepam 2 MG/ML INJ IV STA (19:34)
[2024-05-05] MEDS: SODIUM CHLORIDE 0.9% 1,000 ML IV STA (19:36)
[2024-05-05] MEDS: HYDROmorphone 0.5 MG/0.5 ML SYRINGE IVP STA (19:36)
[2024-05-05 19:51] LABS: Basophils % (A) 0 %; Eosinophils # (A) 0.1 k/uL (0-0.7); Eosinophils % (A) 1 %; HCT 43.8 % (39.0-53.0); HGB 15.1 gm/dL (13.0-17.5); Lymphocytes # (A) 1.1 k/uL (1.0-4.8); Lymphocytes % (A) 12 %; MCH 30.1 pg (25.0-35.0); MCHC 34.4 g/dL (31.0-37.0); MCV 87.3 fL (80.0-100.0); Mean Platelet Volume 7.7; Monocytes # (A) 0.4 k/uL (0-1.0); Monocytes % (A) 4 %; Neutrophils # (A) 7.7 k/uL (1.3-7.7); Neutrophils % (A) 82 %; Platelet Count 186 k/uL (150-450); RBC 5.01 m/uL (4.30-5.90); RDW 11.5 % (11.5-15.5); WBC 9.5 k/uL (3.8-10.6)
--- NOTE | 2024-05-05 20:01 | CT ---
EXAMINATION TYPE: CT brain cspine wo con CT DLP: 1408.9 mGycm, Automated exposure control for dose reduction was used. DATE OF EXAM: 05/05/2024 7:28 PM COMPARISON: None. CLINICAL INDICATION:Male, 38 years old with history of SZ,PAIN; pt new onset seizures. 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 No prior in pacs TECHNIQUE: Brain: Multiple axial CT images of the brain were obtained without IV contrast. Cspine: Axial CT images from the skull base to the inferior aspect of T2 we obtained without intraven ous contrast. Coronal and sagittal reformatted images were also reviewed. . FINDINGS: Brain: Extra-axial spaces: No abnormal extra-axial fluid collections. Ventricular system: Within normal limits Cerebral parenchyma: No acute intraparenchymal hemorrhage or mass effect. The chamberlain-white junction is well differentiated. Cerebellum: Unremarkable. Mass effect: No evidence of midline shift. Intracranial vasculature: unremarkable Soft tissues: Normal. Calvarium/osseous structures: No acute depressed skull fracture. Paranasal sinuses and mastoid air cells: There is attenuated opacification of the left frontal sinus. There is additional sinus mucosal thickening of the ethmoid, right maxillary and left sphenoid sinus es. Visualized orbits: Orbital contents are intact. Cervical spine: Fracture: None. Osseous structures: Unremarkable Vertebral alignment: Within normal limits. Spinal canal/Neural Foramina: No evidence of significant spinal canal narrowing. No evidence for sign ificant neural foraminal stenosis. Neck soft tissues: Prevertebral soft tissues are within normal limits. Other: The airway is patent. The lung apices are clear. IMPRESSION: 1. No acute intracranial process. 2. 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 This can be furth er characterized with an MRI brain with IV contrast. 3. Paranasal sinusitis. 4. No evidence of cervical spine fracture. 5. Reported history of posterior neck/spinal tumor is not directly appreciated on this noncontrasted cervical spine study. A dedicated nonemergent MRI cervical spine with IV contrast would be better for characterization of those reported findings. Correlate with patient's history. [facility], , 05/05/2024 7:59 PM
[2024-05-05 20:08] LABS: ALT 27 U/L (4-49); AST 33 U/L (17-59); Acetaminophen <10.0 ug/mL; African American GFR (CKD) >90 (>60 ml/min/1.73 sqM); Albumin 4.3 g/dL (3.5-5.0); Alcohol <10 mg/dL; Alkaline Phosphatase 75 U/L (38-126); Anion Gap 5 mmol/L; Blood Urea Nitrogen 14 mg/dL (9-20); Calcium 8.7 mg/dL (8.4-10.2); Carbon Dioxide 27 mmol/L (22-30); Chloride 102 mmol/L (98-107); Glucose 92 mg/dL (74-99); Magnesium 2.2 mg/dL (1.6-2.3); Non-African American GFR(CKD) >90 (>60 ml/min/1.73 sqM); Salicylate <1.0 mg/dL; Sodium 134 mmol/L (137-145); Total Bilirubin 0.5 mg/dL (0.2-1.3); Total Protein 6.8 g/dL (6.3-8.2)
[2024-05-05 20:20] LABS: Amphetamine Screen,Urine Not Detected (NotDetected); Barbiturate Screen,Urine Not Detected (NotDetected); Benzodiazepines Screen,Urine Not Detected (NotDetected); Cocaine Screen,Urine Not Detected (NotDetected); Methadone Screen, Urine Not Detected (NotDetected); Opiate Screen,Urine Not Detected (NotDetected); Oxycodone Screen, Urine Not Detected (NotDetected); Phencyclidine Screen,Urine Not Detected (NotDetected); Tricyclic Antidepressant,Urine Not Detected (NotDetected); Urn Cannabinoid Scrn Not Detected (NotDetected)
[2024-05-05] MEDS: ACET/COD 300 MG/30 MG STARTER PACK 6 TAB BTL PO STA (20:42)
[2024-05-05] MEDS: IBUPROFEN 600 MG STARTER PACK 4 TAB BTL PO STA (20:42)
[2024-05-05 20:45] VITALS: BP 129/73; PULSE 60; RESP 14
== END 2024-05-05 20:45 | disposition home or self-care (01) ==
LOC: EC 16:52
DX: R56.9 Unspecified convulsions (principal); D21.0 Benign neoplasm of connective and other soft tissue of head, face and neck; Z91.040 Latex allergy status; Z87.891 Personal history of nicotine dependence
CPT/HCPCS: 36415; 93005; 80053; 83735; 85025; 80306; 80143; 80320; 80179; 72125; 70450; 99285; 96374; 96375; 96361; J2060; J1171

== ENCOUNTER 2024-10-08 09:16 | Inpatient (IN) | payer BC ==
--- NOTE | 2024-10-08 09:37 | ED ---
General Adult HPI - General Chief complaint: Fever Stated complaint: MCKAYLA/Fever/ABD Pain Time Seen by Provider: 10/08/24 09:19 Source: patient, RN notes reviewed Mode of arrival: ambulatory Limitations: no limitations - History of Present Illness Initial comments: Patient is a 38-year-old male present to the emergency department with concerns with fever. Onset was the middle of the night. Patient did have prolonged MRI done yesterday to evaluate for previous spinal tumor and was intubated during this secondary to the length of the MRI. Patient denies cough. Patient states it hurts to take a deep breath. Patient has some discomfort right lower rib/upper abdomen region. Patient states this is near the region of his previous gallbladder problem however he has had cholecystectomy. Patient was sweating throughout the night and had fever of 100.6. Patient did take Motrin an hour ago. Patient did vomit a couple of times. - Related Data Home Medications Medication Instructions Recorded Confirmed traZODone HCL 50 mg PO HS PRN 09/02/18 02/12/22 Adalimumab [Humira(Cf) Pen] 40 mg SQ Q14D 02/12/22 02/12/22 Kratom Powder(Unknown) 1 tsp PO HS PRN 02/12/22 02/12/22 Magnesium Powder(Unknown) 1 tsp PO HS 02/12/22 02/12/22 Milk Thistle(Unknown) 1 tab PO HS 02/12/22 02/12/22 Turmeric(Unknown) 1 tab PO HS 02/12/22 02/12/22 Vitamin C(Unknown) 1 tab PO HS 02/12/22 02/12/22 Vitamn D3(Unknown) 1 tab PO HS 02/12/22 02/12/22 Previous Rx's Medication Instructions Recorded HYDROcodone/APAP 5-325MG [Clements 1 tab PO Q6HR PRN 3 Days #8 tab 11/26/22 5-325] Ibuprofen [Motrin] 600 mg PO Q6HR PRN #30 tab 11/26/22 Ondansetron Odt [Zofran Odt] 4 mg PO Q8HR PRN #12 tab 11/26/22 Tamsulosin [Flomax] 0.4 mg PO DAILY #7 cap 11/26/22 Allergies Allergy/AdvReac Type Severity Reaction Status Date / Time tramadol Allergy Unknown Verified 10/08/24 09:21 fabric softner Allergy Rash/Hives Uncoded 05/05/24 17:00 Review of Systems ROS Statement: Those systems with pertinent positive or pertinent negative responses have been documented in the HPI. ROS Other: All systems not noted in ROS Statement are negative. 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 History of Any Multi-Drug Resistant Organisms: None Reported Past Surgical History: Orthopedic Surgery Additional Past Surgical History / Comment(s): tumor removed 2024 Past Psychological History: No Psychological Hx Reported Smoking Status: Former smoker Past Alcohol Use History: None Reported Past Drug Use History: None Reported General Exam Limitations: no limitations General appearance: alert, in no apparent distress Head exam: Present: normocephalic Eye exam: Present: normal appearance Neck exam: Present: normal inspection Respiratory exam: Present: normal lung sounds bilaterally, chest wall tenderness (Mild tenderness right posterior ribs) Cardiovascular Exam: Present: normal rhythm, tachycardia GI/Abdominal exam: Present: soft, tenderness (Mild tenderness right upper abdomen), normal bowel sounds. Absent: distended, guarding, rebound, rigid, pulsatile mass Extremities exam: Present: normal inspection. Absent: pedal edema, calf tenderness Neurological exam: Present: alert Psychiatric exam: Present: normal affect, normal mood Skin exam: Present: normal color Course Vital Signs 10/08/24 10/08/24 10/08/24 09:18 10:03 11:12 Temperature 100 F H 102.0 F H 99.2 F Pulse Rate 124 H 111 H 107 H Respiratory 18 20 18 Rate Blood Pressure 95/56 103/65 103/56 O2 Sat by Pulse 95 97 97 Oximetry EKG Findings - EKG Results: EKG: interpreted by ERMD (Lateral biphasic T waves. Inferior T wave inversion), sinus rhythm, normal axis, normal QRS EKG shows: tachycardia Medical Decision Making - Medical Decision Making 1158: There is concern for sepsis diagnosed at 11:45 AM. Blood culture, lactic acid, and IV antibiotics have all been ordered Was pt. sent in by a medical professional or institution (JAZZY Montemayor, [employer], urgent care, hospital, or skilled nursing...) When possible be specific @ -No Did you speak to anyone other than the patient for history (EMS, parent, family, police, friend...)? What history was obtained from this source @ - is present helps fight history including history of recent spinal surgery, recent MRI Did you review nursing and triage notes (agree or disagree)? Why? @ -I reviewed and agree with nursing and triage notes Were old charts reviewed (outside hosp., previous admission, EMS record, old EKG, old radiological studies, urgent care reports/EKG's, skilled nursing records)? Report findings @ -No old charts were reviewed Differential Diagnosis (chest pain, altered mental status, abdominal pain women, abdominal pain men, vaginal bleeding, weakness, fever, dyspnea, syncope, headache, dizziness, GI bleed, back pain, seizure, CVA, palpatations, mental he alth, musculoskeletal)? @ -Differential Dyspnea: Coronary syndrome, arrhythmia, tamponade, asthma, COPD, pulmonary embolism, pneumonia, pneumothorax, pulmonary effusion, anaphylaxis, diabetic ketoacidosis, flailed chest, pulmonary contusion, diaphragmatic rupture, anemia, neuromuscular, this is not meant to be an all-inclusive list. EKG interpreted by me (3pts min.). @ -As above X-rays interpreted by me (1pt min.). @ -Right hilar abnormality chest x-ray CT interpreted by me (1pt min.). @ -CT scan chest abdomen pelvis with concern for right posterior infiltrate U/S interpreted by me (1pt. min.). @ -None done What testing was considered but not performed or refused? (CT, X-rays, U/S, l abs)? Why? @ -None What meds were considered but not given or refused? Why? @ -None Did you discuss the management of the patient with other professionals (professionals i.e. JAZZY Montemayor, [employer]ING BU[employer]DER, lab, RT, psych nurse, foster care social worker, sandblaster supervisor, teacher, examining officer, adult protective caseworker)? Give summary @ -RICK, Dr. Lang to admit covering Dr. Aggarwal Was smoking cessation discussed for >3mins.? @ -No Was critical care preformed (if so, how long)? @ -31 minutes critical care time Were there social determinants of health that impacted care today? How? (Homelessness, low income, unemployed, alcoholism, drug addiction, transportation, low edu. Level, literacy, decrease access to med. care, group home, rehab)? @ -No Was there de-escalation of care discussed even if they declined (Discuss DNR or withdrawal of care, Hospice)? DNR status @ -No What co-morbidities impacted this encounter? (DM, HTN, Smoking, COPD, CAD, Cancer, CVA, ARF, Chemo, Hep., AIDS, mental health diagnosis, sleep apnea, morbid obesity)? @ -Rheumatoid arthritis however patient is no longer on Humira. Spinal tumor with surgery in June Was patient admitted / discharged? Hospital course, mention meds given and route, prescriptions, significant lab abnormalities, going to OR and other pertinent info. @ -Patient presents with discomfort in abdomen and chest and dyspnea high fever and tachycardia. X-ray and CT concerning for pneumonia. Patient will be admitted with IV antibiotics. Admission orders written. Patient reevaluated and updated. Undiagnosed new problem with uncertain prognosis? @ -No Drug Therapy requiring intensive monitoring for toxicity (Heparin, Nitro, Insulin, Cardizem)? @ -No Were any procedures done? @ -No Diagnosis/symptom? @ -Pneumonia, sepsis Acute, or Chronic, or Acute on Chronic? @ -Acute, acute Uncomplicated (without systemic symptoms) or Complicated (systemic symptoms)? @ -Default Side effects of treatment? @ -No Exacerbation, Progression, or Severe Exacerbation? @ -No Poses a threat to life or bodily function? How? (Chest pain, [place], [place], pneumonia, PE, COPD, DKA, ARF, appy, cholecystitis, CVA, Diverticulitis, Homicidal, Suicidal, threat to staff... and all critical care pts) @ -No - Lab Data Result diagrams: 10/08/24 09:33 10/08/24 09:33 Lab Results 10/08/24 10/08/24 10/08/24 Range/Units 09:32 09:33 09:33 WBC 8.50 (4.50-10.00) 10*3/uL RBC 4.57 (4.40-5.60) 10*6/uL Hgb 13.6 (13.0-17.0) g/dL Hct 39.8 (39.6-50.0) % MCV 87.1 (80.0-97.0) fL MCH 29.8 (27.0-32.0) pg MCHC 34.2 (32.0-37.0) g/dL Plt Count 149 (140-440) 10*3/uL MPV 10.5 (9.5-12.2) fL Immature Gran % (Auto) 1.1 % Neutrophils % 84.5 % Lymphocytes % 6.6 % Monocytes % 7.6 % Eosinophils % 0.1 % Basophils % 0.1 % Immature Gran # 0.09 H (0.00-0.04) 10*3/uL Neutrophils # 7.18 (1.80-7.70) 10*3/uL Lymphocytes # 0.56 L (0.90-5.00) 10*3/uL Monocytes # 0.65 (0.20-1.00) 10*3/uL Eosinophils # 0.01 L (0.04-0.35) 10*3/uL Basophils # 0.01 (0.00-0.10) 10*3/uL PT 10.3 (10.0-12.5) sec INR 0.9 (<1.2) APTT 21.8 L (22.0-30.0) sec D-Dimer 0.46 (<0.60) mg/L FEU Sodium (137-145) mmol/L Potassium (3.5-5.1) mmol/L Chloride (98-107) mmol/L Carbon Dioxide (22-30) mmol/L Anion Gap mmol/L BUN (9-20) mg/dL Creatinine (0.66-1.25) mg/dL Est GFR (CKD-EPI)AfAm (>60 ml/min/1.73 sqM) Est GFR (CKD-EPI)NonAf (>60 ml/min/1.73 sqM) Glucose (74-99) mg/dL Plasma Lactic Acid Grady (0.7-2.0) mmol/L Calcium (8.4-10.2) mg/dL Total Bilirubin (0.2-1.3) mg/dL AST (17-59) U/L ALT (4-49) U/L Alkaline Phosphatase (38-126) U/L Creatine Kinase (55-170) U/L Troponin I (0.000-0.034) ng/mL Total Protein (6.3-8.2) g/dL Albumin (3.5-5.0) g/dL Urine Color Urine Appearance (Clear) Urine pH (5.0-8.0) Ur Specific Boyd (1.001-1.035) Urine Protein (Negative) Urine Glucose (UA) (Negative) Urine Ketones (Negative) Urine Blood (Negative) Urine Nitrite (Negative) Urine Bilirubin (Negative) Urine Urobilinogen (<2.0) mg/dL Ur Leukocyte Esterase (Negative) Influenza Type A (PCR) Not Detected (Not Detectd) Influenza Type B (PCR) Not Detected (Not Detectd) RSV (PCR) Not Detected (Not Detectd) SARS-CoV-2 (PCR) Not Detected (Not Detectd) 10/08/24 10/08/24 10/08/24 Range/Units 09:33 09:33 09:33 WBC (4.50-10.00) 10*3/uL RBC (4.40-5.60) 10*6/uL Hgb (13.0-17.0) g/dL Hct (39.6-50.0) % MCV (80.0-97.0) fL MCH (27.0-32.0) pg MCHC (32.0-37.0) g/dL Plt Count (140-440) 10*3/uL MPV (9.5-12.2) fL Immature Gran % (Auto) % Neutrophils % % Lymphocytes % % Monocytes % % Eosinophils % % Basophils % % Immature Gran # (0.00-0.04) 10*3/uL Neutrophils # (1.80-7.70) 10*3/uL Lymphocytes # (0.90-5.00) 10*3/uL Monocytes # (0.20-1.00) 10*3/uL Eosinophils # (0.04-0.35) 10*3/uL Basophils # (0.00-0.10) 10*3/uL PT (10.0-12.5) sec INR (<1.2) APTT (22.0-30.0) sec D-Dimer (<0.60) mg/L FEU Sodium 135 L (137-145) mmol/L Potassium 3.2 L (3.5-5.1) mmol/L Chloride 98 (98-107) mmol/L Carbon Dioxide 30 (22-30) mmol/L Anion Gap 7 mmol/L BUN 16 (9-20) mg/dL Creatinine 0.65 L (0.66-1.25) mg/dL Est GFR (CKD-EPI)AfAm >90 (>60 ml/min/1.73 sqM) Est GFR (CKD-EPI)NonAf >90 (>60 ml/min/1.73 sqM) Glucose 100 H (74-99) mg/dL Plasma Lactic Acid Grady 1.6 (0.7-2.0) mmol/L Calcium 9.0 (8.4-10.2) mg/dL Total Bilirubin 0.6 (0.2-1.3) mg/dL AST 23 (17-59) U/L ALT 23 (4-49) U/L Alkaline Phosphatase 73 (38-126) U/L Creatine Kinase 66 (55-170) U/L Troponin I (0.000-0.034) ng/mL Total Protein 6.3 (6.3-8.2) g/dL Albumin 3.9 (3.5-5.0) g/dL Urine Color Yellow Urine Appearance Clear (Clear) Urine pH 5.5 (5.0-8.0) Ur Specific Boyd 1.014 (1.001-1.035) Urine Protein Negative (Negative) Urine Glucose (UA) Negative (Negative) Urine Ketones Negative (Negative) Urine Blood Negative (Negative) Urine Nitrite Negative (Negative) Urine Bilirubin Negative (Negative) Urine Urobilinogen <2.0 (<2.0) mg/dL Ur Leukocyte Esterase Negative (Negative) Influenza Type A (PCR) (Not Detectd) Influenza Type B (PCR) (Not Detectd) RSV (PCR) (Not Detectd) SARS-CoV-2 (PCR) (Not Detectd) 10/08/24 Range/Units 09:38 WBC (4.50-10.00) 10*3/uL RBC (4.40-5.60) 10*6/uL Hgb (13.0-17.0) g/dL Hct (39.6-50.0) % MCV (80.0-97.0) fL MCH (27.0-32.0) pg MCHC (32.0-37.0) g/dL Plt Count (140-440) 10*3/uL MPV (9.5-12.2) fL Immature Gran % (Auto) % Neutrophils % % Lymphocytes % % Monocytes % % Eosinophils % % Basophils % % Immature Gran # (0.00-0.04) 10*3/uL Neutrophils # (1.80-7.70) 10*3/uL Lymphocytes # (0.90-5.00) 10*3/uL Monocytes # (0.20-1.00) 10*3/uL Eosinophils # (0.04-0.35) 10*3/uL Basophils # (0.00-0.10) 10*3/uL PT (10.0-12.5) sec INR (<1.2) APTT (22.0-30.0) sec D-Dimer (<0.60) mg/L FEU Sodium (137-145) mmol/L Potassium (3.5-5.1) mmol/L Chloride (98-107) mmol/L Carbon Dioxide (22-30) mmol/L Anion Gap mmol/L BUN (9-20) mg/dL Creatinine (0.66-1.25) mg/dL Est GFR (CKD-EPI)AfAm (>60 ml/min/1.73 sqM) Est GFR (CKD-EPI)NonAf (>60 ml/min/1.73 sqM) Glucose (74-99) mg/dL Plasma Lactic Acid Grady (0.7-2.0) mmol/L Calcium (8.4-10.2) mg/dL Total Bilirubin (0.2-1.3) mg/dL AST (17-59) U/L ALT (4-49) U/L Alkaline Phosphatase (38-126) U/L Creatine Kinase (55-170) U/L Troponin I <0.012 (0.000-0.034) ng/mL Total Protein (6.3-8.2) g/dL Albumin (3.5-5.0) g/dL Urine Color Urine Appearance (Clear) Urine pH (5.0-8.0) Ur Specific Boyd (1.001-1.035) Urine Protein (Negative) Urine Glucose (UA) (Negative) Urine Ketones (Negative) Urine Blood (Negative) Urine Nitrite (Negative) Urine Bilirubin (Negative) Urine Urobilinogen (<2.0) mg/dL Ur Leukocyte Esterase (Negative) Influenza Type A (PCR) (Not Detectd) Influenza Type B (PCR) (Not Detectd) RSV (PCR) (Not Detectd) SARS-CoV-2 (PCR) (Not Detectd) Critical Care Time Critical Care Time: Yes Disposition Clinical Impression: Pneumonia Disposition: ADMITTED IP TO THIS HOSP Is patient prescribed a controlled substance at d/c from ED?: No Time of Disposition: 12:00
[2024-10-08] MEDS: LACTATED RINGERS 1,000 ML IV SCH (09:58)
[2024-10-08] MEDS: ACETAMINOPHEN IV (For NPO) 1,000 MG in EMPTY BAG 1 BAG IVPB STA (09:58)
[2024-10-08 10:07] LABS: Basophils # (A) 0.01 10*3/uL (0.00-0.10); Basophils % (A) 0.1 %; Eosinophils # (A) 0.01 10*3/uL (0.04-0.35); Eosinophils % (A) 0.1 %; HCT 39.8 % (39.6-50.0); HGB 13.6 g/dL (13.0-17.0); Lymphocytes # (A) 0.56 10*3/uL (0.90-5.00); Lymphocytes % (A) 6.6 %; MCH 29.8 pg (27.0-32.0); MCHC 34.2 g/dL (32.0-37.0); MCV 87.1 fL (80.0-97.0); Mean Platelet Volume 10.5 fL (9.5-12.2); Monocytes # (A) 0.65 10*3/uL (0.20-1.00); Monocytes % (A) 7.6 %; Neutrophils # (A) 7.18 10*3/uL (1.80-7.70); Neutrophils % (A) 84.5 %; Platelet Count 149 10*3/uL (140-440); RBC 4.57 10*6/uL (4.40-5.60); RDW 12.2 % (11.5-14.5)
[2024-10-08 10:15] LABS: Appearance,Urine Clear (Clear); Bilirubin,Urine Negative (Negative); Blood,Urine Negative (Negative); Color,Urine Yellow; Glucose,Urine (UA) Negative (Negative); Ketones,Urine Negative (Negative); Leukocyte Esterase,Urine Negative (Negative); Nitrite,Urine Negative (Negative); PH, Urine 5.5 (5.0-8.0); Protein,Urine Negative (Negative); Specific Gravity,Urine 1.014 (1.001-1.035); Urobilinogen,Urine <2.0 mg/dL (<2.0)
[2024-10-08 10:21] LABS: ALT 23 U/L (4-49); AST 23 U/L (17-59); African American GFR (CKD) >90 (>60 ml/min/1.73 sqM); Albumin 3.9 g/dL (3.5-5.0); Alkaline Phosphatase 73 U/L (38-126); Anion Gap 7 mmol/L; Blood Urea Nitrogen 16 mg/dL (9-20); Carbon Dioxide 30 mmol/L (22-30); Chloride 98 mmol/L (98-107); Creatine Kinase 66 U/L (55-170); Glucose 100 mg/dL (74-99); Non-African American GFR(CKD) >90 (>60 ml/min/1.73 sqM); Potassium 3.2 mmol/L (3.5-5.1); Sodium 135 mmol/L (137-145); Total Bilirubin 0.6 mg/dL (0.2-1.3); Total Protein 6.3 g/dL (6.3-8.2)
[2024-10-08 10:30] LABS: INR 0.9 (<1.2); Partial Thromboplastin Time 21.8 sec (22.0-30.0); Prothrombin Time 10.3 sec (10.0-12.5)
[2024-10-08 10:47] LABS: Influenza A Not Detected (Not Detectd); Influenza B Not Detected (Not Detectd); RSV Not Detected (Not Detectd)
--- NOTE | 2024-10-08 10:52 | US ---
EXAMINATION TYPE: US gallbladder DATE OF EXAM: 10/08/2024 COMPARISON: 11/18/2022 CLINICAL INDICATION: Male, 38 years old with history of pain; Pain gallbladder removed 2 years ago. TECHNIQUE: Grayscale and color Doppler imaging of the right upper quadrant was performed. FINDINGS: EXAM MEASUREMENTS: Liver Length: 20.2 cm Gallbladder Wall: Surgically absent CBD: .8 cm Right Kidney: 12 x 4.6 x 5.5 cm KNOWLEDGE MANAGER NOTES: Pancreas: Obscured by bowel gas Liver: Hepatomegaly Gallbladder: Surgically absent Evidence for sonographic Baires's sign: No CBD: wnl Right Kidney: No hydronephrosis or masses seen IMPRESSION: 1. No evidence for acute process. 2. Hepatomegaly. [facility], , 10/08/2024 10:49 AM
--- NOTE | 2024-10-08 10:53 | XR ---
EXAMINATION TYPE: XR chest 2V DATE OF EXAM: 10/08/2024 10:18 AM COMPARISON: None CLINICAL INDICATION: Male, 38 years old with history of Fever; [facility] TECHNIQUE: XR chest 2V Frontal and lateral views of the chest. FINDINGS: Lungs/Pleura: There is fullness in the right perihilar region which is asymmetric. There may be hazin ess to the upper spine on lateral view. There is no evidence of pleural effusion, focal consolidation , or pneumothorax. Pulmonary vascularity: Unremarkable. Heart/mediastinum: Cardiomediastinal silhouette is unremarkable. Musculoskeletal: No acute osseous pathology. IMPRESSION: Right perihilar fullness further evaluation with cross-sectional imaging recommended with IV contrast . Finding could represent lymphadenopathy or mass versus airspace consolidation. [facility], , 10/08/2024 10:51 AM
--- NOTE | 2024-10-08 11:32 | CT ---
EXAMINATION TYPE: CT ChestAbdPelvis w con DATE OF EXAM: 10/08/2024 11:14 AM COMPARISON: 11/19/2023. Plain film same day. CLINICAL INDICATION: Male, 38 years old with history of r chest, abp, abnl cxr; PHH, r chest, abp, ab nl cxr. pt had MRI with sedation yesterday. pt has hx of spine tumor with removal sx Technique: CT ChestAbdPelvis w con; Multiple axial images were obtained. Two-dimensional coronal and sagittal reconstructions were obtained. Contrast used:100ml mL of Isovue 300 with IV Contrast, (None if empty) Oral contrast used: with Oral Contrast CT DLP: 882.7 mGycm, Automated exposure control for dose reduction was used. Findings: CHEST: LUNGS/ PLEURA: No focal consolidation, pneumothorax or pleural effusion. Airspace consolidation poste rior right lung severe segment correlate with perihilar fullness" plain film same day. AIRWAY: Patent and unremarkable. HEART: Size within normal limits. No significant coronary artery calcifications. MEDIASTINUM: No gross evidence of adenopathy. VASCULATURE: No aortic aneurysm. MUSCULOSKELETAL: No acute osseous abnormalities. SOFT TISSUES/LYMPH NODES: Unremarkable. LOWER NECK: No significant findings. ABDOMEN: ABDOMEN LIVER: Unremarkable GALLBLADDER AND BILE DUCTS: Unremarkable. PANCREAS: Unremarkable. SPLEEN: Unremarkable. ADRENAL GLANDS: Unremarkable. KIDNEYS AND URETERS: No evidence of hydronephrosis or obstructing renal calculus. The ureters are unr emarkable. Nonobstructing bilateral 2 mm calculi. PELVIS BLADDER: Unremarkable REPRODUCTIVE: Unremarkable. ABDOMEN & PELVIS STOMACH AND BOWEL: No evidence of bowel obstruction. Large amount stool in the colon. PERITONEUM/RETROPERITONEUM: No evidence of pneumoperitoneum or free fluid. VASCULATURE: No evidence of aortic aneurysm. MUSCULOSKELETAL: No acute osseous abnormalities LYMPH NODES: No gross evidence for lymphadenopathy. SOFT TISSUE/ABDOMINAL WALL: Unremarkable IMPRESSION: 1. Right lower lobe superior segment airspace consolidation compatible with pneumonia. No mass or ly mphadenopathy identified. 2. Bilateral nonobstructing renal calculi measuring up to 2 mm. Large amount stool in the colon. [facility], , 10/08/2024 11:30 AM
[2024-10-08] MEDS ORDERED: PNEUMONIA PROTOCOL UTILIZED 1 EACH MISC PO PRN (11:51)
[2024-10-08] MEDS: LACTATED RINGERS 1,000 ML IV STA (12:09)
[2024-10-08] MEDS: HYDROmorphone 1 MG/ML 1 ML SYRINGE IVP STA ×2 (12:11→14:46)
[2024-10-08] MEDS: AZITHROMYCIN 500 MG in SODIUM CHLORIDE 0.9% 250 ML IVPB STA (12:52)
[2024-10-08] MEDS: ONDANSETRON 4 MG/2 ML VIAL IVP STA (12:54)
[2024-10-08] MEDS: KETOROLAC 15 MG/ML 1 ML VIAL IVP STA (14:45)
[2024-10-08] MEDS: PANTOPRAZOLE 40 MG/10 ML VIAL IVP SCH (14:46)
[2024-10-08] MEDS: PROMETHAZINE 25 MG TAB PO STA (14:56)
[2024-10-08] MEDS: SODIUM CHLORIDE 0.9% 1,000 ML IV SCH (17:46)
[2024-10-08] MEDS: KETOROLAC 15 MG/ML 1 ML VIAL IVP SCH (19:51)
[2024-10-08] MEDS: IPRATROPIUM-ALBUTEROL 3 ML NEB INHALATION SCH (20:08)
[2024-10-08 20:52] LABS: Glucose,Whole Blood 112 mg/dL (70-110)
--- NOTE | 2024-10-08 20:53 | XR ---
EXAMINATION TYPE: XR chest 1V portable DATE OF EXAM: 10/08/2024 8:40 PM COMPARISON: CT CLINICAL INDICATION: Male, 38 years old with history of increased O2 demand; [facility] TECHNIQUE: XR chest 1V portable Frontal view of the chest. FINDINGS: Lungs/Pleura: T increasing consolidation changes in lung bases with persistent right lower lobe super ior segment airspace consolidation as seen on prior CT. Pulmonary vascularity: Unremarkable. Heart/mediastinum: Cardiomediastinal silhouette is unremarkable. Musculoskeletal: No acute osseous pathology. IMPRESSION: Increasing bilateral airspace consolidation changes of the lung bases. [facility], , 10/08/2024 8:51 PM
[2024-10-08 21:12] LABS: Glucose,Whole Blood 111 mg/dL (70-110)
[2024-10-08 21:29] LABS: ABG HCO3 27 mmol/L (21-25); ABG Oxygen Saturation 94.8 % (94-97); ABG PCO2 40 mmHg (35-45); ABG PH 7.43 (7.35-7.45); ABG PO2 66 mmHg (83-108); ABG TCO2 28 mmol/L (19-24); Allen Test Performed? Yes
[2024-10-08 21:35] LABS: HCT 35.1 % (39.6-50.0); HGB 11.8 g/dL (13.0-17.0); MCH 29.7 pg (27.0-32.0); MCHC 33.6 g/dL (32.0-37.0); MCV 88.4 fL (80.0-97.0); Mean Platelet Volume 10.6 fL (9.5-12.2); Platelet Count 149 10*3/uL (140-440); RBC 3.97 10*6/uL (4.40-5.60); RDW 12.5 % (11.5-14.5); WBC 8.95 10*3/uL (4.50-10.00)
[2024-10-08 21:59] LABS: African American GFR (CKD) >90 (>60 ml/min/1.73 sqM); Anion Gap 5 mmol/L; Blood Urea Nitrogen 17 mg/dL (9-20); Calcium 7.6 mg/dL (8.4-10.2); Carbon Dioxide 27 mmol/L (22-30); Chloride 103 mmol/L (98-107); Glucose 112 mg/dL (74-99); Non-African American GFR(CKD) >90 (>60 ml/min/1.73 sqM); Potassium 3.8 mmol/L (3.5-5.1); Sodium 135 mmol/L (137-145)
[2024-10-08] MEDS ORDERED: Potassium Replacement Protocol 1 EACH MISC MISCELLANE PRN (22:01)
[2024-10-08] MEDS ORDERED: Magnesium Replacement Protocol 1 EACH MISC MISCELLANE PRN (22:01)
--- NOTE | 2024-10-08 22:02 | P.CONS ---
History of Present Illness - Reason for Consult Consult date: 10/08/24 Pneumonia Requesting physician: Paramjit Allison - Chief Complaint Fever with rigors and chills x 1 day - History of Present Illness Patient is a 38-year-old male with a past medical history significant for rheumatoid arthritis spinal cord tumor history of cholecystectomy presenting to the hospital for evaluation of fever with rigors and chills that apparently started in the middle of the night for the patient was in the hospital since morning the patient started having a cough moderate to severe intensity has been Some bloodstained sputum also complaining of nausea and multiple episode of vomiting but no significant abdominal pain he did have some right-sided chest pain especially with deep breath and cough patient denies having any diarrhea or urinary symptoms on presentation to the hospital patient did have temperature of 102 F patient was tachycardic hypotensive and as well as hypoxic requiring high flow oxygen patient did have a white count of 8.95 creatinine is 0.65 electrolytes has been normal UA has been negative influenza RSV COVID testing ne gative patient did have a chest x-ray right perihilar fullness concerning for lymphadenopathy versus mass versus airspace consolidation chest abdominal pelvis CT right lower lobe superior segment airspace consolidation compatible with pneumonia no mass large amount of stool burden bilateral nonobstructing renal calculi patient has been started on Rocephin and Zithromax admitted to the hospital infectious disease was consulted for further management of antibiotic therapy Review of Systems Positive point and negatives has been mentioned in the HPI, complete review of systems was performed and all other systems are negative Past Medical History Past Medical History: Rheumatoid Arthritis (RA) Additional Past Medical History / Comment(s): spinal cord tumor History of Any Multi-Drug Resistant Organisms: None Reported Past Surgical History: Orthopedic Surgery Additional Past Surgical History / Comment(s): tumor removed 2024 Past Psychological History: No Psychological Hx Reported Smoking Status: Former smoker Past Alcohol Use History: None Reported Past Drug Use History: None Reported - Past Family History Father Family Medical History: Cancer Additional Family Medical History / Comment(s): colon cancer Mother Family Medical History: Cancer Additional Family Medical History / Comment(s): breast cancer Medications and Allergies Home Medications Medication Instructions Recorded Confirmed Type Multivitamins, Thera [Multivitamin 1 tab PO DAILY 10/08/24 10/08/24 History (formulary)] Sertraline [Zoloft] 50 mg PO DAILY 10/08/24 10/08/24 History Allergies Allergy/AdvReac Type Severity Reaction Status Date / Time tramadol AdvReac seizures Verified 10/08/24 12:44 fabric softner Allergy Rash/Hives Uncoded 10/08/24 12:44 Physical Exam Vitals: Vital Signs Temp Pulse Resp BP Pulse Ox 10/08/24 11:12 99.2 F 107 H 18 103/56 97 10/08/24 10:03 102.0 F H 111 H 20 103/65 97 10/08/24 09:18 100 F H 124 H 18 95/56 95 Intake and Output 10/07/24 10/08/24 10/08/24 22:59 06:59 14:59 Other: Weight 79.379 kg GENERAL DESCRIPTION: Middle-age male lying in bed, mild distress. No tachypnea or accessory muscle of respiration use. HEENT: Shows Pallor , no scleral icterus. Oral mucous membrane is dry. NECK: Trachea central, no thyromegaly. LUNGS: Unlabored breathing. Coarse breath sounds on the right side HEART: S1, S2, regular rate and rhythm. No loud murmur ABDOMEN: Soft, no tenderness , EXTREMITIES: No edema of feet. SKIN: No rash, no masses palpable. NEUROLOGICAL: The patient is awake, alert, oriented x3, mood and affect normal. Results CBC & Chem 7: 10/08/24 21:23 10/08/24 09:33 Labs: Abnormal Lab Results - Last 24 Hours (Table) 10/08/24 10/08/24 10/08/24 Range/Units 09:33 09:33 09:33 Immature Gran # 0.09 H (0.00-0.04) 10*3/uL Lymphocytes # 0.56 L (0.90-5.00) 10*3/uL Eosinophils # 0.01 L (0.04-0.35) 10*3/uL APTT 21.8 L (22.0-30.0) sec Sodium 135 L (137-145) mmol/L Potassium 3.2 L (3.5-5.1) mmol/L Creatinine 0.65 L (0.66-1.25) mg/dL Glucose 100 H (74-99) mg/dL Assessment and Plan (1) Sepsis Current Visit: Yes Status: Acute Code(s): A41.9 - SEPSIS, UNSPECIFIED ORGANISM SNOMED Code(s): 31236054 (2) Pneumonia Current Visit: Yes Status: Acute Code(s): J18.9 - PNEUMONIA, UNSPECIFIED ORGANISM SNOMED Code(s): 743308752 Plan: 1patient presented hospital with sepsis in this patient who did have fever tachycardia hypotension meeting ready for SIRS/sepsis source is right lower lobe pneumonia likely community-acquired as symptoms started with rigors and chills followed by cough and then vomiting 2blood and sputum culture have been requested 3patient be treated with Rocephin and Zithromax while waiting for the workup to be completed Family the bedside question concern answered We will follow on clinical condition and cultures to further adjust medication if needed Thank you for this consultation we will follow the patient along with you Dictation was produced using [employer] dictation software. please excuse any grammatical, word or spelling errors. Time with Patient: Greater than 30
[2024-10-08] MEDS: MAGNESIUM SULFATE-D5W PMX 1 GM in DEXTROSE/WATER 1 100ML.BAG IVPB SCH (22:12)
[2024-10-08] MEDS: POTASSIUM CHLORIDE ER 20 MEQ TAB.ER PO SCH (22:12)
[2024-10-08 23:06] LABS: ABG Base Excess 1.8 mmol/L; ABG HCO3 26 mmol/L (21-25); ABG Oxygen Saturation 97.8 % (94-97); ABG PCO2 39 mmHg (35-45); ABG PH 7.43 (7.35-7.45); ABG PO2 87 mmHg (83-108); ABG TCO2 27 mmol/L (19-24); Allen Test Performed? Yes
[2024-10-08] MEDS: LORazepam 1 MG/0.5 ML VIAL IV STA (23:17)
[2024-10-09 04:45] LABS: HGB 11.8 g/dL (13.0-17.0); MCH 30.1 pg (27.0-32.0); MCHC 33.7 g/dL (32.0-37.0); MCV 89.3 fL (80.0-97.0); Mean Platelet Volume 10.9 fL (9.5-12.2); Platelet Count 166 10*3/uL (140-440); RBC 3.92 10*6/uL (4.40-5.60); RDW 12.8 % (11.5-14.5); WBC 11.31 10*3/uL (4.50-10.00)
[2024-10-09 04:49] LABS: African American GFR (CKD) >90 (>60 ml/min/1.73 sqM); Anion Gap 5 mmol/L; Blood Urea Nitrogen 19 mg/dL (9-20); Calcium 7.7 mg/dL (8.4-10.2); Carbon Dioxide 25 mmol/L (22-30); Chloride 104 mmol/L (98-107); Glucose 128 mg/dL (74-99); Magnesium 2.4 mg/dL (1.6-2.3); Non-African American GFR(CKD) >90 (>60 ml/min/1.73 sqM); Potassium 4.4 mmol/L (3.5-5.1); Sodium 134 mmol/L (137-145)
--- NOTE | 2024-10-09 06:41 | P.CNPUL ---
History of Present Illness Consult date: 10/09/24 Requesting physician: Kylah Castro Reason for consult: dyspnea, cough, hypoxemia, pneumonia, abnormal CXR/CT Chief complaint: Pneumonia. History of present illness: Pulmonary consult dated October 09, 2024. 38-year-old male who was seen in the emergency department, October 08, for fever. The patient has a history of a malignant spinal cord tumor, and had a resection of the tumor, done in June 2024, at the [facility]. The patient was back at [facility], on Thursday, for an MRI of the spine, which was done under general anesthesia, with intubation. The patient likely a spirated at that time, and presents to the emergency department, with pneumonia. The patient came in complaining of fever, and pain in the right lower chest right upper abdominal area. In addition, the patient did have some nausea, and vomiting. Current labs include a white count 11.3, hemoglobin 11.8, hematocrit 35, and a platelet count of 166,000. The patient had a blood gas, showing a PO2 of 87, PCO2 of 39, pH of 7.43. That was on 100%. Sodium 134, potassium 4.4, chlorides 104, CO2 25, BUN 19, creatinine 0.47. Lactic acid was initially 2.6, repeat was 2.1. Calcium 7.7. Magnesium 2.4. Gallbladder ultrasound was negative. Chest x-ray showed some right perihilar fullness. CT scan of the chest abdomen and pelvis, showed significant consolidation of the superior segment of the right lower lobe, consistent with pneumonia. Repeat chest x-ray, showed bilateral airspace disease. Chest x-ray dated October 09, again shows bilateral airspace disease, right greater than left. There is also evidence of air bronchograms. The patient is currently on azithromycin and Rocephin per infectious diseases. In addition, the patient is on BiPAP, with settings of 15/5, 60%, and LR at 130 cc an hour. Review of Systems REVIEW OF SYSTEMS: CONSTITUTIONAL: Fever. NEUROLOGIC: [ Negative.] HEENT: [ Negative.] CARDIAC: [Negative.] PULMONARY: Shortness of breath. GI: [Negative.] : [Negative.] RHEUMATOLOGIC: [ Negative.] IMMUNOLOGIC: [ Negative.] ENDOCRINE: [Negative. ] DERMATOLOGIC: [Negative.] Past Medical History Past Medical History: Rheumatoid Arthritis (RA) Additional Past Medical History / Comment(s): spinal cord tumor History of Any Multi-Drug Resistant Organisms: None Reported Past Surgical History: Orthopedic Surgery Additional Past Surgical History / Comment(s): tumor removed 2024 Past Anesthesia/Blood Transfusion Reactions: No Reported Reaction Past Psychological History: No Psychological Hx Reported Smoking Status: Former smoker Past Alcohol Use History: None Reported Past Drug Use History: None Reported - Past Family History Father Family Medical History: Cancer Additional Family Medical History / Comment(s): colon cancer Mother Family Medical History: Cancer Additional Family Medical History / Comment(s): breast cancer Medications and Allergies Home Medications Medication Instructions Recorded Confirmed Type Multivitamins, Thera [Multivitamin 1 tab PO DAILY 10/08/24 10/08/24 History (formulary)] Sertraline [Zoloft] 50 mg PO DAILY 10/08/24 10/08/24 History Allergies Allergy/AdvReac Type Severity Reaction Status Date / Time tramadol AdvReac seizures Verified 10/08/24 12:44 fabric softner Allergy Rash/Hives Uncoded 10/08/24 12:44 Physical Exam Osteopathic Statement: *. No significant issues noted on an osteopathic structural exam other than those noted in the History and Physical/Consult. Vitals: Vital Signs Temp Pulse Pulse Resp BP BP BP 10/09/24 06:00 89 17 94/60 10/09/24 05:45 87 20 99/64 10/09/24 05:30 95 23 88/63 10/09/24 05:29 10/09/24 05:15 87 21 91/64 10/09/24 05:00 86 18 91/57 10/09/24 04:45 86 20 93/59 10/09/24 04:30 89 20 93/65 10/09/24 04:15 90 19 93/65 10/09/24 04:03 10/09/24 04:01 92 10/09/24 04:00 98 24 82/64 10/09/24 03:45 90 21 88/56 10/09/24 03:30 91 21 92/67 10/09/24 03:15 92 17 86/59 10/09/24 03:00 90 19 87/55 10/09/24 02:45 93 19 84/62 10/09/24 02:30 90 19 81/61 10/09/24 02:15 97 20 84/57 10/09/24 02:00 93 25 H 89/57 10/09/24 01:45 93 19 85/56 10/09/24 01:30 96 18 87/63 10/09/24 01:15 96 22 86/58 10/09/24 01:00 96 20 /10/09/24 00:45 96 19 /10/09/24 00:30 101 H 22 /10/09/24 00:15 100 22 89/55 10/09/24 00:00 99 20 86/53 10/08/24 23:45 99 20 83/53 10/08/24 23:30 97 22 95/60 10/08/24 23:20 104 H 10/08/24 23:15 106 H 32 H 10/08/24 23:12 108 H 10/08/24 23:10 10/08/24 23:00 105 H 26 H 96/58 10/08/24 22:45 109 H 23 96/10/08/24 22:30 111 H 25 H 103/67 10/08/24 22:16 10/08/24 22:15 112 H 22 97/64 10/08/24 22:00 121 H 21 /10/08/24 21:45 101 H 18 86/10/08/24 21:31 10/08/24 21:30 115 H 24 86/10/08/24 21:12 98.7 F 107 H 24 144/109 10/08/24 20:35 108 H 16 91/52 10/08/24 20:19 10/08/24 20:18 112 H 10/08/24 20:08 116 H 10/08/24 19:32 99.2 F 125 H 16 88/48 10/08/24 17:35 121 H 16 81/46 10/08/24 16:30 99.6 F 113 H 19 92/45 86/45 10/08/24 16:20 94/45 10/08/24 16:10 94/45 10/08/24 16:08 120 H 20 94/56 10/08/24 16:00 89/47 10/08/24 14:04 98.8 F 121 H 22 108/87 10/08/24 13:00 100.0 F H 114 H 20 124/74 10/08/24 11:12 99.2 F 107 H 18 103/56 10/08/24 10:03 102.0 F H 111 H 20 103/65 10/08/24 09:18 100 F H 124 H 18 95/56 Pulse Ox FiO2 10/09/24 06:00 98 10/09/24 05:45 99 10/09/24 05:30 99 10/09/24 05:29 60 10/09/24 05:15 98 10/09/24 05:00 98 10/09/24 04:45 98 10/09/24 04:30 98 10/09/24 04:15 100 10/09/24 04:03 80 10/09/24 04:01 10/09/24 04:00 99 10/09/24 03:45 98 10/09/24 03:30 97 10/09/24 03:15 98 10/09/24 03:00 98 10/09/24 02:45 98 10/09/24 02:30 98 10/09/24 02:15 98 10/09/24 02:00 98 10/09/24 01:45 98 10/09/24 01:30 96 10/09/24 01:15 98 10/09/24 01:00 92 L 10/09/24 00:45 98 10/09/24 00:30 99 10/09/24 00:15 98 10/09/24 00:00 98 10/08/24 23:45 97 10/08/24 23:30 99 10/08/24 23:20 10/08/24 23:15 97 10/08/24 23:12 10/08/24 23:10 100 10/08/24 23:00 98 10/08/24 22:45 98 10/08/24 22:30 98 10/08/24 22:16 100 10/08/24 22:15 91 L 10/08/24 22:00 86 L 10/08/24 21:45 97 10/08/24 21:31 90 L 90 10/08/24 21:30 95 10/08/24 21:12 92 L 10/08/24 20:35 90 L 10/08/24 20:19 91 L 10/08/24 20:18 10/08/24 20:08 10/08/24 19:32 90 L 10/08/24 17:35 90 L 10/08/24 16:30 90 L 10/08/24 16:20 10/08/24 16:10 89 L 10/08/24 16:08 91 L 10/08/24 16:00 90 L 10/08/24 14:04 93 L 10/08/24 13:00 88 L 10/08/24 11:12 97 10/08/24 10:03 97 10/08/24 09:18 95 Intake and Output 10/08/24 10/08/24 10/09/24 14:59 22:59 06:59 Intake Total 310 1440 Output Total 300 1050 Balance 10 390 Intake: Intake, IV Titration 130 1440 Amount Lactated Ringers 1,000 ml 130 1040 @ 130 mls/hr IV .[id number] ST[facility] Rx#:[id number] Magnesium Sulfate-D5w Pmx 400 1 gm In Dextrose/Water 1 100ml.bag @ 100 mls/hr IVPB Q1H [facility] Rx#: [id number] Oral 180 Output: Urine 300 1050 Other: Voiding Method Urinal # Voids 0 Weight 79.379 kg 86.2 kg No acute distress, currently on BiPAP, with settings of 15/5, 60%. HEENT examination is grossly unremarkable. Neck supple. Full range of motion. No adenopathy thyromegaly or neck vein distention. Cardiovascular examination reveals regular rhythm rate. S1-S2 normal. No S3 or S4. No discernible murmur noted. Heart rate 90 bpm. Lungs reveal scattered bilateral rhonchi. No wheezes. No crackles. Breath sounds equal bilaterally. Abdomen soft with bowel sounds. No masses or tenderness. Extremities are intact. No cyanosis clubbing or edema. Skin is without rash or lesion. Neurologic examination is brief but nonfocal. Results - Laboratory Findings CBC and BMP: 10/09/24 03:58 10/09/24 03:58 ABG ABG pH 7.43 (7.35-7.45) 10/08/24 23:04 ABG pCO2 39 mmHg (35-45) 10/08/24 23:04 ABG pO2 87 mmHg (83-108) 10/08/24 23:04 ABG O2 Saturation 97.8 % (94-97) H 10/08/24 23:04 PT/INR, D-dimer PT 10.3 sec (10.0-12.5) 10/08/24 09:33 INR 0.9 (<1.2) 10/08/24 09:33 D-Dimer 0.46 mg/L FEU (<0.60) 10/08/24 09:33 Abnormal lab findings: Abnormal Labs 10/08/24 10/08/24 10/08/24 09:33 09:33 09:33 WBC RBC Hgb Hct Immature Gran # 0.09 H Lymphocytes # 0.56 L Eosinophils # 0.01 L APTT 21.8 L ABG pO2 ABG HCO3 ABG Total CO2 ABG O2 Saturation Hemoglobin Sodium 135 L Potassium 3.2 L Creatinine 0.65 L Glucose 100 H POC Glucose (mg/dL) Plasma Lactic Acid Grady Calcium Magnesium 10/08/24 10/08/24 10/08/24 20:51 21:11 21:22 WBC RBC Hgb Hct Immature Gran # Lymphocytes # Eosinophils # APTT ABG pO2 66 L ABG HCO3 27 H ABG Total CO2 28 H ABG O2 Saturation Hemoglobin 12.2 L Sodium Potassium Creatinine Glucose POC Glucose (mg/dL) 112 H 111 H Plasma Lactic Acid Grady Calcium Magnesium 10/08/24 10/08/24 10/08/24 21:23 21:23 21:23 WBC RBC 3.97 L Hgb 11.8 L Hct 35.1 L Immature Gran # Lymphocytes # Eosinophils # APTT ABG pO2 ABG HCO3 ABG Total CO2 ABG O2 Saturation Hemoglobin Sodium 135 L Potassium Creatinine 0.55 L Glucose 112 H POC Glucose (mg/dL) Plasma Lactic Acid Grady 2.3 H* Calcium 7.6 L Magnesium 1.0 L 10/08/24 10/09/24 10/09/24 23:04 01:13 03:58 WBC 11.31 H RBC 3.92 L Hgb 11.8 L Hct 35.0 L Immature Gran # Lymphocytes # Eosinophils # APTT ABG pO2 ABG HCO3 26 H ABG Total CO2 27 H ABG O2 Saturation 97.8 H Hemoglobin 12.0 L Sodium Potassium Creatinine Glucose POC Glucose (mg/dL) Plasma Lactic Acid Grady 2.6 H* Calcium Magnesium 10/09/24 10/09/24 03:58 04:27 WBC RBC Hgb Hct Immature Gran # Lymphocytes # Eosinophils # APTT ABG pO2 ABG HCO3 ABG Total CO2 ABG O2 Saturation Hemoglobin Sodium 134 L Potassium Creatinine 0.47 L Glucose 128 H POC Glucose (mg/dL) Plasma Lactic Acid Grady 2.1 H* Calcium 7.7 L Magnesium 2.4 H - Diagnostic Findings Chest x-ray: image reviewed CT scan - chest: image reviewed Assessment and Plan Assessment: Acute hypoxemic respiratory failure, secondary to bilateral pneumonia, likely from aspiration during his MRI, on October 07. S/P MRI, October 07, requiring intubation, and general anesthesia. Resection of malignant spinal cord tumor, June 2024. History of rheumatoid arthritis. Prior history of tobacco use. Plan: Plan dated October 09, 2024. The patient appears to be doing much better. Initially, he was quite hypoxemic and on 100% oxygen. He is currently on BiPAP, with settings of 15/5, and 60%. FiO2 has been titrated down. He is getting LR at 130 cc an hour. In addition, I did give him 1 mg of Ativan, to control his anxiety. Labs, x-rays, and medications are reviewed. His is in the room. The patient had an MRI, with general anesthesia and intubation on Thursday, at [facility]. He likely aspirated at that time. The patient now presents with bilateral pneumonia, right greater than left. Has been seen by infectious diseases. He is on azithromycin and Rocephin. We will continue to follow make recommendat ions along the way. Prognosis is guarded. Dictation was produced using [employer] software. Please excuse any grammatical, word or spelling errors. Time with Patient: Greater than 30
[2024-10-09 06:57] LABS: Band Neutrophils % 45 %; Lymphocytes # (M) 1.02 k/uL (1.0-4.8); Metamyelocytes # (M) 0.11 k/uL (0); Metamyelocytes % 1 %; Monocytes # (M) 0.34 k/uL (0-1.0); Neutrophils # (M) 9.95 k/uL (1.3-7.7); Neutrophils % (M) 43 %; Nucleated Red Blood Cells 0 /100 WBC (0-0); Total Cells Counted 200
--- NOTE | 2024-10-09 07:54 | XR ---
EXAMINATION TYPE: XR chest 1V portable DATE OF EXAM: 10/09/2024 5:15 AM COMPARISON: Chest radiograph from one day prior. CLINICAL INDICATION: Male, 38 years old with history of distress; [facility] TECHNIQUE: XR chest 1V portable Frontal view of the chest. FINDINGS: Lungs/Pleura: Similar multifocal airspace opacities. No evidence of pneumothorax or pleural effusion. Pulmonary vascularity: Unremarkable. Heart/mediastinum: Cardiomediastinal silhouette is unremarkable. Musculoskeletal: No acute osseous pathology. IMPRESSION: Similar multifocal airspace opacities. [facility], , 10/09/2024 7:52 AM
[2024-10-09] MEDS: MULTIVITAMINS, THERA 1 EACH TAB PO SCH (09:06)
[2024-10-09] MEDS: cefTRIAXone 2 GM in DEXTROSE 5% IN WATER 50 ML IVPB SCH (09:07)
[2024-10-09] MEDS: SERTRALINE 50 MG TAB PO SCH (09:07)
[2024-10-09] MEDS: AZITHROMYCIN 500 MG TAB PO SCH (11:09)
[2024-10-09] MEDS: MORPHINE SULFATE 4 MG/ML SYRINGE IVP PRN (11:09)
[2024-10-09 11:48] LABS: Glucose,Whole Blood 120 mg/dL (70-110)
[2024-10-09] MEDS: guaiFENesin 600 MG TABLET.ER PO SCH (12:38)
[2024-10-09] MEDS: ACETAMINOPHEN TAB 325 MG TAB PO PRN (12:51)
[2024-10-09] MEDS: LORazepam 1 MG/0.5 ML VIAL IV PRN (13:13)
--- NOTE | 2024-10-09 18:32 | P.HPIM ---
History of Present Illness H&P Date: 10/08/24 Chief Complaint: Fever/difficulty breathing 38-year-old male present to the emergency department with concerns with fever. Onset was the middle of the night. Patient did have prolonged MRI done yesterday to evaluate for previous spinal tumor and was intubated during this s econdary to the length of the MRI. Patient denies cough. Patient states it hurts to take a deep breath. Patient has some discomfort right lower rib/upper abdomen region. Patient states this is near the region of his previous gallbladder problem however he has had cholecystectomy. Patient was sweating throughout the night and had fever of 100.6. Patient did take Motrin an hour ago. Patient did vomit a couple of times. EKG: Lateral biphasic T waves. Inferior T wave inversion, sinus rhythm, normal axis, normal QRS -CT scan chest abdomen pelvis with concern for right posterior infiltrate Blood work reveals WBC of 8.95, hemoglobin of 11.8 and platelet count of 149, sodium 135, potassium 3.8, BUN/creatinine of 17/0.55 lactic acid level of 2.3, total bilirubin normal at 1.0 calcium 7.6 which is low, procalcitonin of 3.50 Viral drug screen is negative UA is unremarkable Review of Systems REVIEW OF SYSTEMS: CONSTITUTIONAL: No fever, no malaise, no fatigue. HEENT: No recent visual problems or hearing problems. Denied any sore throat. CARDIOVASCULAR: No chest pain, orthopnea, PND, no palpitations, no syncope. PULMONARY: No shortness of breath, no cough, no hemoptysis. GASTROINTESTINAL: No diarrhea, no nausea, no vomiting, no abdominal pain. NEUROLOGICAL: No headaches, no weakness, no numbness. HEMATOLOGICAL: Denies any bleeding or petechiae. GENITOURINARY: Denies any burning micturition, frequency, or urgency. MUSCULOSKELETAL/RHEUMATOLOGICAL: Denies any joint pain, swelling, or any muscle pain. ENDOCRINE: Denies any polyuria or polydipsia. The rest of the 14-point review of systems is negative. Past Medical History Past Medical History: Rheumatoid Arthritis (RA) Additional Past Medical History / Comment(s): spinal cord tumor History of Any Multi-Drug Resistant Organisms: None Reported Past Surgical History: Orthopedic Surgery Additional Past Surgical History / Comment(s): tumor removed 2024 Past Psychological History: No Psychological Hx Reported Smoking Status: Former smoker Past Alcohol Use History: None Reported Past Drug Use History: None Reported - Past Family History Father Family Medical History: Cancer Additional Family Medical History / Comment(s): colon cancer Mother Family Medical History: Cancer Additional Family Medical History / Comment(s): breast cancer Medications and Allergies Home Medications Medication Instructions Recorded Confirmed Type Multivitamins, Thera [Multivitamin 1 tab PO DAILY 10/08/24 10/08/24 History (formulary)] Sertraline [Zoloft] 50 mg PO DAILY 10/08/24 10/08/24 History Allergies Allergy/AdvReac Type Severity Reaction Status Date / Time tramadol AdvReac seizures Verified 10/08/24 12:44 fabric softner Allergy Rash/Hives Uncoded 10/08/24 12:44 Physical Exam Vitals: Vital Signs Temp Pulse Resp BP Pulse Ox 10/08/24 11:12 99.2 F 107 H 18 103/56 97 10/08/24 10:03 102.0 F H 111 H 20 103/65 97 10/08/24 09:18 100 F H 124 H 18 95/56 95 Intake and Output 10/07/24 10/08/24 10/08/24 22:59 06:59 14:59 Other: Weight 79.379 kg General appearance: alert, in no apparent distress Head exam: Present: normocephalic Eye exam: Present: normal appearance Neck exam: Present: normal inspection Respiratory exam: Present: normal lung sounds bilaterally, chest wall tenderness (Mild tenderness right posterior ribs) Cardiovascular Exam: Present: normal rhythm, tachycardia GI/Abdominal exam: Present: soft, tenderness (Mild tenderness right upper abdomen), normal bowel sounds. Absent: distended, guarding, rebound, rigid, pulsatile mass Extremities exam: Present: normal inspection. Absent: pedal edema, calf tenderness Neurological exam: Present: alert Psychiatric exam: Present: normal affect, normal mood Skin exam: Present: normal color Results CBC & Chem 7: 10/09/24 03:58 10/09/24 03:58 Labs: Abnormal Lab Results - Last 24 Hours (Table) 10/08/24 10/08/24 10/08/24 Range/Units 09:33 09:33 09:33 Immature Gran # 0.09 H (0.00-0.04) 10*3/uL Lymphocytes # 0.56 L (0.90-5.00) 10*3/uL Eosinophils # 0.01 L (0.04-0.35) 10*3/uL APTT 21.8 L (22.0-30.0) sec Sodium 135 L (137-145) mmol/L Potassium 3.2 L (3.5-5.1) mmol/L Creatinine 0.65 L (0.66-1.25) mg/dL Glucose 100 H (74-99) mg/dL Assessment and Plan Assessment: 1. Acute hypoxic respiratory failure related to bilateral pneumonia -Patient was initially placed on O2 per nasal cannula and was later transitioned to BiPAP due to desaturation - Continues to use BiPAP intermittently; titrate FiO2 keeping O2 saturation greater than 90% 2. Bilateral pneumonia; possible aspiration while getting MRI patient had an MRI, with general anesthesia and intubation on Thursday, at [facility]. He likely aspirated at that time. The patient now presents with bilateral pneumonia, right greater than left. Has been seen by infectious diseases. He is on azithromycin and Rocephin. Will monitor CBC, CRP and procalcitonin 3. Status postresection malignant spinal cord tumor; June 2024 -Follow-up MRI on 10/07/2024 with general anesthesia requiring intubation 4. History of rheumatoid arthritis 5. History of tobacco use DVT prophylaxis; SCDs CODE STATUS; full code
--- NOTE | 2024-10-09 18:33 | P.PN ---
Subjective Progress Note Date: 10/09/24 38-year-old male present to the emergency department with concerns with fever. Onset was the middle of the night. Patient did have prolonged MRI done yesterday to evaluate for previous spinal tumor and was intubated during this secondary to the length of the MRI. Patient denies cough. Patient states it hurts to take a deep breath. Patient has some discomfort right lower rib/upper abdomen region. Patient states this is near the region of his previous gallbladder problem however he has had cholecystectomy. Patient was sweating throughout the night and had fever of 100.6. Patient did take Motrin an hour ago. Patient did vomit a couple of times. EKG: Lateral biphasic T waves. Inferior T wave inversion, sinus rhythm, normal axis, normal QRS -CT scan chest abdomen pelvis with concern for right posterior infiltrate Blood work reveals WBC of 8.95, hemoglobin of 11.8 and platelet count of 149, sodium 135, potassium 3.8, BUN/creatinine of 17/0.55 lactic acid level of 2.3, total bilirubin normal at 1.0 calcium 7.6 which is low, procalcitonin of 3.50 Viral drug screen is negative UA is unremarkable Objective - Vital Signs Vital signs: Vital Signs Temp 98.7 F 10/08/24 21:12 Pulse 89 10/09/24 06:00 Resp 17 10/09/24 06:00 BP 94/60 10/09/24 06:00 Pulse Ox 98 10/09/24 06:00 FiO2 60 10/09/24 05:29 Intake & Output 10/08/24 10/09/24 10/09/24 18:59 06:59 18:59 Intake Total 180 1570 Output Total 1350 Balance 180 220 Weight 79.379 kg 86.2 kg Intake: Intake, IV Titration 1570 Amount Lactated Ringers 1,000 ml 1170 @ 130 mls/hr IV .Q7H42M [facility] Rx#:[id number] Magnesium Sulfate-D5w Pmx 400 1 gm In Dextrose/Water 1 100ml.bag @ 100 mls/hr IVPB Q1H [facility] Rx#: [id number] Oral 180 Output: Urine 1350 Other: Voiding Method Urinal # Voids 0 - Exam General appearance: alert, in no apparent distress Head exam: Present: normocephalic Eye exam: Present: normal appearance Neck exam: Present: normal inspection Respiratory exam: Present: normal lung sounds bilaterally, chest wall tenderness (Mild tenderness right posterior ribs) Cardiovascular Exam: Present: normal rhythm, tachycardia GI/Abdominal exam: Present: soft, tenderness (Mild tenderness right upper abdomen), normal bowel sounds. Absent: distended, guarding, rebound, rigid, pulsatile mass Extremities exam: Present: normal inspection. Absent: pedal edema, calf tenderness Neurological exam: Present: alert Psychiatric exam: Present: normal affect, normal mood Skin exam: Present: normal color - Labs CBC & Chem 7: 10/09/24 03:58 10/09/24 03:58 Labs: Abnormal Lab Results - Last 24 Hours (Table) 10/08/24 10/08/24 10/08/24 Range/Units 09:33 09:33 09:33 WBC (4.50-10.00) 10*3/uL RBC (4.40-5.60) 10*6/uL Hgb (13.0-17.0) g/dL Hct (39.6-50.0) % Immature Gran # 0.09 H (0.00-0.04) 10*3/uL Neutrophils # (Manual) (1.3-7.7) k/uL Lymphocytes # 0.56 L (0.90-5.00) 10*3/uL Eosinophils # 0.01 L (0.04-0.35) 10*3/uL Metamyelocytes # (Man) (0) k/uL APTT 21.8 L (22.0-30.0) sec ABG pO2 (83-108) mmHg ABG HCO3 (21-25) mmol/L ABG Total CO2 (19-24) mmol/L ABG O2 Saturation (94-97) % Hemoglobin (13.0-17.5) gm/dL Sodium 135 L (137-145) mmol/L Potassium 3.2 L (3.5-5.1) mmol/L Creatinine 0.65 L (0.66-1.25) mg/dL Glucose 100 H (74-99) mg/dL POC Glucose (mg/dL) (70-110) mg/dL Plasma Lactic Acid Grady (0.7-2.0) mmol/L Calcium (8.4-10.2) mg/dL Magnesium (1.6-2.3) mg/dL 10/08/24 10/08/24 10/08/24 Range/Units 20:51 21:11 21:22 WBC (4.50-10.00) 10*3/uL RBC (4.40-5.60) 10*6/uL Hgb (13.0-17.0) g/dL Hct (39.6-50.0) % Immature Gran # (0.00-0.04) 10*3/uL Neutrophils # (Manual) (1.3-7.7) k/uL Lymphocytes # (0.90-5.00) 10*3/uL Eosinophils # (0.04-0.35) 10*3/uL Metamyelocytes # (Man) (0) k/uL APTT (22.0-30.0) sec ABG pO2 66 L (83-108) mmHg ABG HCO3 27 H (21-25) mmol/L ABG Total CO2 28 H (19-24) mmol/L ABG O2 Saturation (94-97) % Hemoglobin 12.2 L (13.0-17.5) gm/dL Sodium (137-145) mmol/L Potassium (3.5-5.1) mmol/L Creatinine (0.66-1.25) mg/dL Glucose (74-99) mg/dL POC Glucose (mg/dL) 112 H 111 H (70-110) mg/dL Plasma Lactic Acid Grady (0.7-2.0) mmol/L Calcium (8.4-10.2) mg/dL Magnesium (1.6-2.3) mg/dL 10/08/24 10/08/24 10/08/24 Range/Units 21:23 21:23 21:23 WBC (4.50-10.00) 10*3/uL RBC 3.97 L (4.40-5.60) 10*6/uL Hgb 11.8 L (13.0-17.0) g/dL Hct 35.1 L (39.6-50.0) % Immature Gran # (0.00-0.04) 10*3/uL Neutrophils # (Manual) (1.3-7.7) k/uL Lymphocytes # (0.90-5.00) 10*3/uL Eosinophils # (0.04-0.35) 10*3/uL Metamyelocytes # (Man) (0) k/uL APTT (22.0-30.0) sec ABG pO2 (83-108) mmHg ABG HCO3 (21-25) mmol/L ABG Total CO2 (19-24) mmol/L ABG O2 Saturation (94-97) % Hemoglobin (13.0-17.5) gm/dL Sodium 135 L (137-145) mmol/L Potassium (3.5-5.1) mmol/L Creatinine 0.55 L (0.66-1.25) mg/dL Glucose 112 H (74-99) mg/dL POC Glucose (mg/dL) (70-110) mg/dL Plasma Lactic Acid Grady 2.3 H* (0.7-2.0) mmol/L Calcium 7.6 L (8.4-10.2) mg/dL Magnesium 1.0 L (1.6-2.3) mg/dL 10/08/24 10/09/24 10/09/24 Range/Units 23:04 01:13 03:58 WBC 11.31 H (4.50-10.00) 10*3/uL RBC 3.92 L (4.40-5.60) 10*6/uL Hgb 11.8 L (13.0-17.0) g/dL Hct 35.0 L (39.6-50.0) % Immature Gran # (0.00-0.04) 10*3/uL Neutrophils # (Manual) 9.95 H (1.3-7.7) k/uL Lymphocytes # (0.90-5.00) 10*3/uL Eosinophils # (0.04-0.35) 10*3/uL Metamyelocytes # (Man) 0.11 H (0) k/uL APTT (22.0-30.0) sec ABG pO2 (83-108) mmHg ABG HCO3 26 H (21-25) mmol/L ABG Total CO2 27 H (19-24) mmol/L ABG O2 Saturation 97.8 H (94-97) % Hemoglobin 12.0 L (13.0-17.5) gm/dL Sodium (137-145) mmol/L Potassium (3.5-5.1) mmol/L Creatinine (0.66-1.25) mg/dL Glucose (74-99) mg/dL POC Glucose (mg/dL) (70-110) mg/dL Plasma Lactic Acid Grady 2.6 H* (0.7-2.0) mmol/L Calcium (8.4-10.2) mg/dL Magnesium (1.6-2.3) mg/dL 10/09/24 10/09/24 Range/Units 03:58 04:27 WBC (4.50-10.00) 10*3/uL RBC (4.40-5.60) 10*6/uL Hgb (13.0-17.0) g/dL Hct (39.6-50.0) % Immature Gran # (0.00-0.04) 10*3/uL Neutrophils # (Manual) (1.3-7.7) k/uL Lymphocytes # (0.90-5.00) 10*3/uL Eosinophils # (0.04-0.35) 10*3/uL Metamyelocytes # (Man) (0) k/uL APTT (22.0-30.0) sec ABG pO2 (83-108) mmHg ABG HCO3 (21-25) mmol/L ABG Total CO2 (19-24) mmol/L ABG O2 Saturation (94-97) % Hemoglobin (13.0-17.5) gm/dL Sodium 134 L (137-145) mmol/L Potassium (3.5-5.1) mmol/L Creatinine 0.47 L (0.66-1.25) mg/dL Glucose 128 H (74-99) mg/dL POC Glucose (mg/dL) (70-110) mg/dL Plasma Lactic Acid Grady 2.1 H* (0.7-2.0) mmol/L Calcium 7.7 L (8.4-10.2) mg/dL Magnesium 2.4 H (1.6-2.3) mg/dL Microbiology - Last 24 Hours (Table) 10/08/24 12:43 Gram Stain - Preliminary Sputum Assessment and Plan Assessment: 1. Acute hypoxic respiratory failure related to bilateral pneumonia -Patient was initially placed on O2 per nasal cannula and was later transitioned to BiPAP due to desaturation - Continues to use BiPAP intermittently; titrate FiO2 keeping O2 saturation greater than 90% 2. Bilateral pneumonia; possible aspiration while getting MRI patient had an MRI, with general anesthesia and intubation on Thursday, at [facility]. He likely aspirated at that time. The patient now presents with bilateral pneumonia, right greater than left. Has been seen by infectious diseases. He is on azithromycin and Rocephin. Will monitor CBC, CRP and procalcitonin 3. Status postresection malignant spinal cord tumor; June 2024 -Follow-up MRI on 10/07/2024 with general anesthesia requiring intubation 4. History of rheumatoid arthritis 5. History of tobacco use DVT prophylaxis; SCDs CODE STATUS; full code
[2024-10-10 06:12] LABS: Basophils # (A) 0.07 10*3/uL (0.00-0.10); Basophils % (A) 0.5 %; Eosinophils # (A) 0.01 10*3/uL (0.04-0.35); Eosinophils % (A) 0.1 %; HCT 32.5 % (39.6-50.0); Lymphocytes # (A) 0.63 10*3/uL (0.90-5.00); Lymphocytes % (A) 4.8 %; MCH 30.2 pg (27.0-32.0); MCHC 33.8 g/dL (32.0-37.0); MCV 89.3 fL (80.0-97.0); Monocytes # (A) 0.67 10*3/uL (0.20-1.00); Monocytes % (A) 5.1 %; Neutrophils # (A) 10.78 10*3/uL (1.80-7.70); Neutrophils % (A) 81.6 %; Platelet Count 166 10*3/uL (140-440); RBC 3.64 10*6/uL (4.40-5.60); RDW 12.7 % (11.5-14.5); WBC 13.21 10*3/uL (4.50-10.00)
[2024-10-10 06:40] LABS: African American GFR (CKD) >90 (>60 ml/min/1.73 sqM); Anion Gap 8 mmol/L; Blood Urea Nitrogen 15 mg/dL (9-20); Calcium 8.7 mg/dL (8.4-10.2); Carbon Dioxide 26 mmol/L (22-30); Chloride 102 mmol/L (98-107); Glucose 108 mg/dL (74-99); Non-African American GFR(CKD) >90 (>60 ml/min/1.73 sqM); Potassium 3.9 mmol/L (3.5-5.1); Sodium 136 mmol/L (137-145)
--- NOTE | 2024-10-10 07:02 | XR ---
EXAMINATION TYPE: XR chest 1V portable DATE OF EXAM: 10/10/2024 5:19 AM COMPARISON: Chest radiograph from one day prior. CLINICAL INDICATION: Male, 38 years old with history of Pneumonia; [facility] TECHNIQUE: XR chest 1V portable Frontal view of the chest. FINDINGS: Lungs/Pleura: Similar multifocal airspace opacities. No evidence of pneumothorax or pleural effusion. Pulmonary vascularity: Unremarkable. Heart/mediastinum: Cardiomediastinal silhouette is unremarkable. Musculoskeletal: No acute osseous pathology. IMPRESSION: Similar multifocal airspace opacities. [facility], , 10/10/2024 7:00 AM
--- NOTE | 2024-10-10 07:16 | P.PN ---
Subjective Progress Note Date: 10/09/24 Principal diagnosis: Reason for follow-up is sepsis and pneumonia Patient is a 38-year-old male with a past medical history significant for rheumatoid arthritis spinal cord tumor history of cholecystectomy presenting to the hospital for evaluation of fever with rigors and chills patient has been diagnosed with sepsis secondary to pneumonia. On today's evaluation that is 10/09/2024,the patient did have a improvement his fever pattern with a low-grade fever of 99.7, patient did require BiPAP off and on however is not requiring any pressor support denies any chest pain or worsening cough and no diarrhea. Patient white count is 11.3, creatinine is 0.47, blood and sputum cultures currently pending Objective - Vital Signs Vital signs: Vital Signs Temp 98.7 F 10/08/24 21:12 Pulse 102 H 10/09/24 08:43 Resp 17 10/09/24 06:00 BP 94/60 10/09/24 06:00 Pulse Ox 92 L 10/09/24 07:30 FiO2 70 10/09/24 07:30 Intake & Output 10/08/24 10/09/24 10/09/24 18:59 06:59 18:59 Intake Total 180 1570 Output Total 1350 Balance 180 220 Weight 79.379 kg 86.2 kg Intake: Intake, IV Titration 1570 Amount Lactated Ringers 1,000 ml 1170 @ 130 mls/hr IV .Q7H42M [facility] Rx#:[id number] Magnesium Sulfate-D5w Pmx 400 1 gm In Dextrose/Water 1 100ml.bag @ 100 mls/hr IVPB Q1H [facility] Rx#: [id number] Oral 180 Output: Urine 1350 Other: Voiding Method Urinal # Voids 0 - Exam GENERAL DESCRIPTION: Middle-age male lying in bed in no distress RESPIRATORY SYSTEM: Unlabored breathing , decreased breath sounds at bases HEART: S1 S2 regular rate and rhythm , ABDOMEN: Soft , no tenderness EXTREMITIES: No edema feet - Labs CBC & Chem 7: 10/10/24 05:17 10/10/24 05:17 Labs: Abnormal Lab Results - Last 24 Hours (Table) 10/08/24 10/08/24 10/08/24 Range/Units 09:33 20:51 21:11 WBC (4.50-10.00) 10*3/uL RBC (4.40-5.60) 10*6/uL Hgb (13.0-17.0) g/dL Hct (39.6-50.0) % Neutrophils # (Manual) (1.3-7.7) k/uL Metamyelocytes # (Man) (0) k/uL ABG pO2 (83-108) mmHg ABG HCO3 (21-25) mmol/L ABG Total CO2 (19-24) mmol/L ABG O2 Saturation (94-97) % Hemoglobin (13.0-17.5) gm/dL Sodium (137-145) mmol/L Creatinine (0.66-1.25) mg/dL Glucose (74-99) mg/dL POC Glucose (mg/dL) 112 H 111 H (70-110) mg/dL Plasma Lactic Acid Grady (0.7-2.0) mmol/L Calcium (8.4-10.2) mg/dL Magnesium (1.6-2.3) mg/dL Procalcitonin 3.50 H (0.02-0.50) ng/mL 10/08/24 10/08/24 10/08/24 Range/Units 21:22 21:23 21:23 WBC (4.50-10.00) 10*3/uL RBC 3.97 L (4.40-5.60) 10*6/uL Hgb 11.8 L (13.0-17.0) g/dL Hct 35.1 L (39.6-50.0) % Neutrophils # (Manual) (1.3-7.7) k/uL Metamyelocytes # (Man) (0) k/uL ABG pO2 66 L (83-108) mmHg ABG HCO3 27 H (21-25) mmol/L ABG Total CO2 28 H (19-24) mmol/L ABG O2 Saturation (94-97) % Hemoglobin 12.2 L (13.0-17.5) gm/dL Sodium 135 L (137-145) mmol/L Creatinine 0.55 L (0.66-1.25) mg/dL Glucose 112 H (74-99) mg/dL POC Glucose (mg/dL) (70-110) mg/dL Plasma Lactic Acid Grady (0.7-2.0) mmol/L Calcium 7.6 L (8.4-10.2) mg/dL Magnesium 1.0 L (1.6-2.3) mg/dL Procalcitonin (0.02-0.50) ng/mL 10/08/24 10/08/24 10/09/24 Range/Units 21:23 23:04 01:13 WBC (4.50-10.00) 10*3/uL RBC (4.40-5.60) 10*6/uL Hgb (13.0-17.0) g/dL Hct (39.6-50.0) % Neutrophils # (Manual) (1.3-7.7) k/uL Metamyelocytes # (Man) (0) k/uL ABG pO2 (83-108) mmHg ABG HCO3 26 H (21-25) mmol/L ABG Total CO2 27 H (19-24) mmol/L ABG O2 Saturation 97.8 H (94-97) % Hemoglobin 12.0 L (13.0-17.5) gm/dL Sodium (137-145) mmol/L Creatinine (0.66-1.25) mg/dL Glucose (74-99) mg/dL POC Glucose (mg/dL) (70-110) mg/dL Plasma Lactic Acid Grady 2.3 H* 2.6 H* (0.7-2.0) mmol/L Calcium (8.4-10.2) mg/dL Magnesium (1.6-2.3) mg/dL Procalcitonin (0.02-0.50) ng/mL 10/09/24 10/09/24 10/09/24 Range/Units 03:58 03:58 04:27 WBC 11.31 H (4.50-10.00) 10*3/uL RBC 3.92 L (4.40-5.60) 10*6/uL Hgb 11.8 L (13.0-17.0) g/dL Hct 35.0 L (39.6-50.0) % Neutrophils # (Manual) 9.95 H (1.3-7.7) k/uL Metamyelocytes # (Man) 0.11 H (0) k/uL ABG pO2 (83-108) mmHg ABG HCO3 (21-25) mmol/L ABG Total CO2 (19-24) mmol/L ABG O2 Saturation (94-97) % Hemoglobin (13.0-17.5) gm/dL Sodium 134 L (137-145) mmol/L Creatinine 0.47 L (0.66-1.25) mg/dL Glucose 128 H (74-99) mg/dL POC Glucose (mg/dL) (70-110) mg/dL Plasma Lactic Acid Grady 2.1 H* (0.7-2.0) mmol/L Calcium 7.7 L (8.4-10.2) mg/dL Magnesium 2.4 H (1.6-2.3) mg/dL Procalcitonin (0.02-0.50) ng/mL 10/09/24 Range/Units 11:47 WBC (4.50-10.00) 10*3/uL RBC (4.40-5.60) 10*6/uL Hgb (13.0-17.0) g/dL Hct (39.6-50.0) % Neutrophils # (Manual) (1.3-7.7) k/uL Metamyelocytes # (Man) (0) k/uL ABG pO2 (83-108) mmHg ABG HCO3 (21-25) mmol/L ABG Total CO2 (19-24) mmol/L ABG O2 Saturation (94-97) % Hemoglobin (13.0-17.5) gm/dL Sodium (137-145) mmol/L Creatinine (0.66-1.25) mg/dL Glucose (74-99) mg/dL POC Glucose (mg/dL) 120 H (70-110) mg/dL Plasma Lactic Acid Grady (0.7-2.0) mmol/L Calcium (8.4-10.2) mg/dL Magnesium (1.6-2.3) mg/dL Procalcitonin (0.02-0.50) ng/mL Microbiology - Last 24 Hours (Table) 10/08/24 12:43 Gram Stain - Preliminary Sputum Assessment and Plan (1) Sepsis Current Visit: Yes Status: Acute Code(s): A41.9 - SEPSIS, UNSPECIFIED ORGANISM SNOMED Code(s): 88455696 (2) Pneumonia Current Visit: Yes Status: Acute Code(s): J18.9 - PNEUMONIA, UNSPECIFIED ORGANISM SNOMED Code(s): 821100118 Plan: 1patient presented hospital with sepsis in this patient who did have fever tachycardia hypotension meeting ready for SIRS/sepsis source is right lower lobe pneumonia likely community-acquired as symptoms started with rigors and chills followed by cough and then vomiting 2blood and sputum culture have been obtained and results will be followed 3patient did have improvement in fluid pattern patient will be treated with Rocephin and Zithromax while waiting for the cultures to be finalized Thank you for this consultation we will follow the patient along with you Dictation was produced using [employer] dictation software. please excuse any grammatical, word or spelling errors. Time with Patient: Less than 30
[2024-10-10] MEDS: POTASSIUM CHLORIDE ER 20 MEQ TAB.ER PO SCH (08:59)
[2024-10-10] MEDS: ENOXAPARIN 40 MG/0.4 ML SYRINGE SQ SCH (10:25)
[2024-10-10] MEDS: PIPERACILLIN-TAZOBACTAM 3.375 GM in SODIUM CHLORIDE 0.9% 100 ML IVPB SCH (10:26)
[2024-10-10] MEDS: LORazepam 0.5 MG TAB PO PRN (12:26)
--- NOTE | 2024-10-10 12:55 | P.PN ---
Subjective Progress Note Date: 10/10/24 38-year-old male who was seen in the emergency department, October 08, for fever. The patient has a history of a malignant spinal cord tumor, and had a resection of the tumor, done in June 2024, at the [facility]. The patient was back at [facility], on Thursday, for an MRI of the spine, which was done under general anesthesia, with intubation. The patient likely aspirated at that time, and presents to the emergency department, with pneumonia. The patient came in complaining of fever, and pain in the right lower chest right upper abdominal area. In addition, the patient did have some nausea, and vomiting. Current labs include a white count 11.3, hemoglobin 11.8, hematocrit 35, and a platelet count of 166,000. The patient had a blood gas, showing a PO2 of 87, PCO2 of 39, pH of 7.43. That was on 100%. Sodium 134, potassium 4.4, chlorides 104, CO2 25, BUN 19, creatinine 0.47. Lactic acid was initially 2.6, repeat was 2.1. Calcium 7.7. Magnesium 2.4. Gallbladder ultrasound was negative. Chest x-ray showed some right perihilar fullness. CT scan of the chest abdomen and pelvis, showed significant consolidation of the superior segment of the right lower lobe, consistent with pneumonia. Repeat chest x-ray, showed bilateral airspace disease. Chest x-ray dated October 09, again shows bilateral airspace disease, right greater than left. There is also evidence of air bronchograms. The patient is currently on azithromycin and Rocephin per infectious diseases. In addition, the patient is on BiPAP, with settings of 15/5, 60%, and LR at 130 cc an hour. On 10/10/2024, patient is being seen for a follow-up. 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 Following that, the patient had a MRI of the brain that required intubation and mechanical ventilation. This was done also at [facility]. Apparently, he has some uncontrollable body jerks and claustrophobia that necessitated intubation mechanical ventilation. The patient presented to us with multifocal pneumonia. The patient was initially on Airvo and later on on a BiPAP for respiratory support and the patient this morning was taken off the BiPAP and the patient is currently on 5 L of O2 nasal cannula. Earlier today, he was on a BiPAP pressure of 15/5 with an FiO2 of 40%. Chest x-ray shows some improvement in the right lower lobe pulmonary consolidation. He continues to have multifocal patchy opacities. I am going to cover the patient with IV Zosyn as there is a concern for an aspiration pneumonia versus hospital- acquired pneumonia. Sputum cultures are still pending for now. White cell count of 13.2, hemoglobin 11 and a platelet count of 166. BUN is 15 with a creatinine of 0.4 and a sodium levels at 136. Slightly tachypneic. Much more comfortable compared to yesterday. Lactated Ringer running at 130 cc an hour. Able to move all of her extremities without any limitation. The patient is on Lovenox 40 mg subcu for DVT prophylaxis. Awake and alert and communicating. Still coughing thick brownish mucus. Objective - Vital Signs Vital signs: Vital Signs Temp 98.1 F 10/09/24 20:00 Pulse 111 H 10/10/24 09:13 Resp 16 10/10/24 07:00 BP 127/86 10/10/24 07:00 Pulse Ox 99 10/10/24 09:02 FiO2 80 10/10/24 04:10 Intake & Output 10/09/24 10/10/24 10/10/24 18:59 06:59 18:59 Intake Total 3230 2810 130 Output Total 2900 1300 Balance 330 1510 130 Weight 87.4 kg Intake: IV 1610 1560 130 Lactated Ringers 1,000 ml 1560 1560 130 @ 130 mls/hr IV .Q7H42M [facility] Rx#:[id number] cefTRIAXone 2 gm In 50 Dextrose 5% in Water 50 ml @ 100 mls/hr IVPB Q24HR [facility] Rx#:[id number] Oral 1620 1250 Output: Urine 2900 1300 Other: Voiding Method Urinal Urinal - Exam The patient appeared well nourished and normally developed. Vital signs as documented. The patient is currently on 5 L of oxygen by nasal cannula. Slight tachypnea. Head exam is unremarkable. No scleral icterus or corneal arcus noted. The cervical posterior surgical wound site is dry clean and intact. Neck is without jugular venous distension, thyromegaly, or carotid bruits. Carotid upstrokes are brisk bilaterally. Lungs are clear to auscultation and percussion. Crackles and bronchial breath sound specially on the right compared to the left. Cardiac exam reveals the PMI to be normally sized and situated. Rhythm is r egular. First and second heart sounds normal. No murmurs, rubs or gallops. Abdominal exam reveals normal bowel sounds, no masses, no organomegaly and no aortic enlargement. Extremities are nonedematous and both femoral and pedal pulses are normal. Examination of the skin revealed no evidence of significant rashes, suspicious appearing nevi or other concerning lesions. Neurologically, the patient is awake and alert and the patient does not have any focal neurological deficit. Cranial nerves are essentially intact. - Labs CBC & Chem 7: 10/10/24 05:10/10/24 05:17 Labs: Abnormal Lab Results - Last 24 Hours (Table) 10/08/24 10/09/24 10/10/24 Range/Units 09:33 11:47 05:17 WBC 13.21 H (4.50-10.00) 10*3/uL RBC 3.64 L (4.40-5.60) 10*6/uL Hgb 11.0 L (13.0-17.0) g/dL Hct 32.5 L (39.6-50.0) % Immature Gran # 1.05 H (0.00-0.04) 10*3/uL Neutrophils # 10.78 H (1.80-7.70) 10*3/uL Lymphocytes # 0.63 L (0.90-5.00) 10*3/uL Eosinophils # 0.01 L (0.04-0.35) 10*3/uL Sodium (137-145) mmol/L Creatinine (0.66-1.25) mg/dL Glucose (74-99) mg/dL POC Glucose (mg/dL) 120 H (70-110) mg/dL Procalcitonin 3.50 H (0.02-0.50) ng/mL 10/10/24 Range/Units 05:17 WBC (4.50-10.00) 10*3/uL RBC (4.40-5.60) 10*6/uL Hgb (13.0-17.0) g/dL Hct (39.6-50.0) % Immature Gran # (0.00-0.04) 10*3/uL Neutrophils # (1.80-7.70) 10*3/uL Lymphocytes # (0.90-5.00) 10*3/uL Eosinophils # (0.04-0.35) 10*3/uL Sodium 136 L (137-145) mmol/L Creatinine 0.41 L (0.66-1.25) mg/dL Glucose 108 H (74-99) mg/dL POC Glucose (mg/dL) (70-110) mg/dL Procalcitonin (0.02-0.50) ng/mL Microbiology - Last 24 Hours (Table) 10/08/24 12:08 Blood Culture - Preliminary Blood 10/09/24 10:38 Gram Stain - Preliminary Sputum 10/08/24 12:43 Gram Stain - Preliminary Sputum Assessment and Plan Plan: Acute hypoxemic respiratory failure, the patient was taken off the BiPAP and the patient is currently on 5 L of oxygen by nasal cannula Bilateral multifocal pneumonia, consider aspiration versus hospital-acquired pneumonia/gram-negative. The patient likely from aspiration during his MRI, on Thursday, October 07. Spinal cord/cervical leptomeningeal glioma, surgically resected [facility] back in June 2024 Shortness of breath secondary to above, improving History of rheumatoid arthritis. Prior history of tobacco use. Plan: Discontinue the BiPAP and utilize oxygen at 5 L/min nasal cannula Obtain sputum Gram stain and culture Switch the patient's antibiotic coverage to IV Zosyn Lactated Ringer at rate of 130 cc an hour Incentive spirometry and pulmonary toileting Lovenox for DVT prophylaxis Cervical spine surgical wound site is dry clean and intact. No focal neurological deficits. Will continue to follow. Evaluation was done and 31 minutes. Time with Patient: Greater than 30
[2024-10-10] MEDS: ONDANSETRON 4 MG/2 ML VIAL IVP PRN (18:05)
[2024-10-11 04:48] LABS: HCT 32.8 % (39.6-50.0); HGB 10.7 g/dL (13.0-17.0); MCH 29.5 pg (27.0-32.0); MCHC 32.6 g/dL (32.0-37.0); MCV 90.4 fL (80.0-97.0); Mean Platelet Volume 10.8 fL (9.5-12.2); Platelet Count 180 10*3/uL (140-440); RBC 3.63 10*6/uL (4.40-5.60); RDW 12.7 % (11.5-14.5); WBC 13.38 10*3/uL (4.50-10.00)
[2024-10-11 05:01] LABS: African American GFR (CKD) >90 (>60 ml/min/1.73 sqM); Anion Gap 8 mmol/L; Blood Urea Nitrogen 13 mg/dL (9-20); Calcium 8.2 mg/dL (8.4-10.2); Carbon Dioxide 25 mmol/L (22-30); Chloride 104 mmol/L (98-107); Glucose 95 mg/dL (74-99); Non-African American GFR(CKD) >90 (>60 ml/min/1.73 sqM); Potassium 3.9 mmol/L (3.5-5.1); Sodium 137 mmol/L (137-145)
--- NOTE | 2024-10-11 07:11 | XR ---
EXAMINATION TYPE: XR chest 1V DATE OF EXAM: 10/11/2024 5:40 AM COMPARISON: Chest radiograph from one day prior. CLINICAL INDICATION: Male, 38 years old with history of pneumonia; [facility] TECHNIQUE: XR chest 1V Frontal view of the chest. FINDINGS: Lungs/Pleura: Multifocal airspace opacities. No evidence of pneumothorax or pleural effusion. Pulmonary vascularity: Unremarkable. Heart/mediastinum: Cardiomediastinal silhouette is unremarkable. Musculoskeletal: No acute osseous pathology. IMPRESSION: Similar multifocal airspace opacities. [facility], , 10/11/2024 7:09 AM
[2024-10-11 07:16] LABS: Band Neutrophils % 20 %; Metamyelocytes # (M) 0.13 k/uL (0); Metamyelocytes % 1 %; Monocytes # (M) 0.27 k/uL (0-1.0); Neutrophils # (M) 12.04 k/uL (1.3-7.7); Neutrophils % (M) 70 %; Nucleated Red Blood Cells 0 /100 WBC (0-0); Total Cells Counted 200
--- NOTE | 2024-10-11 10:31 | P.PN ---
Subjective Progress Note Date: 10/11/24 38-year-old male who was seen in the emergency department, October 08, for fever. The patient has a history of a malignant spinal cord tumor, and had a resection of the tumor, done in June 2024, at the [facility]. The patient was back at [facility], on Thursday, for an MRI of the spine, which was done under general anesthesia, with intubation. The patient likely aspirated at that time, and presents to the emergency department, with pneumonia. The patient came in complaining of fever, and pain in the right lower chest right upper abdominal area. In addition, the patient did have some nausea, and vomiting. Current labs include a white count 11.3, hemoglobin 11.8, hematocrit 35, and a platelet count of 166,000. The patient had a blood gas, showing a PO2 of 87, PCO2 of 39, pH of 7.43. That was on 100%. Sodium 134, potassium 4.4, chlorides 104, CO2 25, BUN 19, creatinine 0.47. Lactic acid was initially 2.6, repeat was 2.1. Calcium 7.7. Magnesium 2.4. Gallbladder ultrasound was negative. Chest x-ray showed some right perihilar fullness. CT scan of the chest abdomen and pelvis, showed significant consolidation of the superior segment of the right lower lobe, consistent with pneumonia. Repeat chest x-ray, showed bilateral airspace disease. Chest x-ray dated October 09, again shows bilateral airspace disease, right greater than left. There is also evidence of air bronchograms. The patient is currently on azithromycin and Rocephin per infectious diseases. In addition, the patient is on BiPAP, with settings of 15/5, 60%, and LR at 130 cc an hour. On 10/10/2024, patient is being seen for a follow-up. 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 Following that, the patient had a MRI of the brain that required intubation and mechanical ventilation. This was done also at [facility]. Apparently, he has some uncontrollable body jerks and claustrophobia that necessitated intubation mechanical ventilation. The patient presented to us with multifocal pneumonia. The patient was initially on Airvo and later on on a BiPAP for respiratory support and the patient this morning was taken off the BiPAP and the patient is currently on 5 L of O2 nasal cannula. Earlier today, he was on a BiPAP pressure of 15/5 with an FiO2 of 40%. Chest x-ray shows some improvement in the right lower lobe pulmonary consolidation. He continues to have multifocal patchy opacities. I am going to cover the patient with IV Zosyn as there is a concern for an aspiration pneumonia versus hospital- acquired pneumonia. Sputum cultures are still pending for now. White cell count of 13.2, hemoglobin 11 and a platelet count of 166. BUN is 15 with a creatinine of 0.4 and a sodium levels at 136. Slightly tachypneic. Much more comfortable compared to yesterday. Lactated Ringer running at 130 cc an hour. Able to move all of her extremities without any limitation. The patient is on Lovenox 40 mg subcu for DVT prophylaxis. Awake and alert and communicating. Still coughing thick brownish mucus. On 10/11/2024, the patient is being seen for a follow-up. Overnight, the patient was on a BiPAP and this morning he was dyspneic and oxygen and is on 5 L of oxygen by nasal cannula. He remains on lactated Ringer at 100 cc an hour. He has extensive pneumonia to follow-up chest x-ray from today is showing similar multifocal airspace disease with significant consolidation of the right lung. The patient remains on IV Zosyn. Coughing out some bloody mucus and the culture is positive for Streptococcus and Marta albicans. No other new complaints otherwise for now. The white cell count is at 13.3 with a hemoglobin 10.7 and a platelet count of 180. Sodium is at 137, potassium is at 3.9, BUN 13 with a creatinine of 0.4. Calcium level is at 8.2. No other significant events overnight. Awake and alert and communicating. Remains on Lovenox for DVT prophylaxis. Objective - Vital Signs Vital signs: Vital Signs Temp 98.4 F 10/10/24 20:00 Pulse 89 10/11/24 06:00 Resp 21 10/11/24 06:00 BP 120/81 10/11/24 06:00 Pulse Ox 92 L 10/11/24 06:00 FiO2 40 10/10/24 18:00 Intake & Output 10/10/24 10/11/24 10/11/24 18:59 06:59 18:59 Intake Total 2670 2260 Output Total 2200 3225 Balance 470 -965 Weight 87.4 kg Intake: IV 1680 1510 Lactated Ringers 1,000 ml 1430 1510 @ 100 mls/hr IV .Q10H RON Rx#:[id number] Piperacillin-Tazobactam 3 200 .375 gm In Sodium Chloride 0.9% 100 ml @ 25 mls/hr IVPB Q8HR RON Rx# :[id number] cefTRIAXone 2 gm In 50 Dextrose 5% in Water 50 ml @ 100 mls/hr IVPB Q24HR RON Rx#:[id number] Oral 990 750 Output: Urine 2200 3225 Other: Voiding Method Urinal Urinal # Voids 2 # Bowel Movements 1 - Exam The patient appeared well nourished and normally developed. Vital signs as docum ented. The patient is currently on 5 L of oxygen by nasal cannula. Slight tachypnea. Head exam is unremarkable. No scleral icterus or corneal arcus noted. The cervical posterior surgical wound site is dry clean and intact. Neck is without jugular venous distension, thyromegaly, or carotid bruits. Carotid upstrokes are brisk bilaterally. Lungs are clear to auscultation and percussion. Crackles and bronchial breath sound specially on the right compared to the left. Cardiac exam reveals the PMI to be normally sized and situated. Rhythm is regular. First and second heart sounds normal. No murmurs, rubs or gallops. Abdominal exam reveals normal bowel sounds, no masses, no organomegaly and no aortic enlargement. Extremities are nonedematous and both femoral and pedal pulses are normal. Examination of the skin revealed no evidence of significant rashes, suspicious appearing nevi or other concerning lesions. Neurologically, the patient is awake and alert and the patient does not have any focal neurological deficit. Cranial nerves are essentially intact. - Labs CBC & Chem 7: 10/11/24 04:04 10/11/24 04:04 Labs: Abnormal Lab Results - Last 24 Hours (Table) 10/11/24 10/11/24 Range/Units 04:04 04:04 WBC 13.38 H (4.50-10.00) 10*3/uL RBC 3.63 L (4.40-5.60) 10*6/uL Hgb 10.7 L (13.0-17.0) g/dL Hct 32.8 L (39.6-50.0) % Immature Gran # 0.13 H (0.00-0.04) 10*3/uL Neutrophils # (Manual) 12.04 H (1.3-7.7) k/uL Metamyelocytes # (Man) 0.13 H (0) k/uL Creatinine 0.46 L (0.66-1.25) mg/dL Calcium 8.2 L (8.4-10.2) mg/dL Microbiology - Last 24 Hours (Table) 10/08/24 12:08 Blood Culture - Preliminary Blood 10/08/24 12:43 Gram Stain - Preliminary Sputum Sputum Culture - Preliminary Assessment and Plan Plan: Acute hypoxemic respiratory failure, the patient was taken off the BiPAP and the patient is currently on 5 L of oxygen by nasal cannula. Overnight, the patient was on a BiPAP and this morning, he was switched to 5 L of oxygen nasal cannula Bilateral multifocal pneumonia, likely pneumococcal. The sputum Gram stain and culture showed Streptococcus pneumonia and Marta the patient remains on IV Zosyn. Spinal cord/cervical leptomeningeal glioma, surgically resected [facility] back in June 2024 Shortness of breath secondary to above, improving History of rheumatoid arthritis. Prior history of tobacco use. Plan: Discontinue the BiPAP and utilize oxygen at 5 L/min nasal cannula Sputum sample showing streptococcal pneumonia Continue Zosyn Lactated Ringer at rate of 40 cc an hour Incentive spirometry and pulmonary toileting Lovenox for DVT prophylaxis Cervical spine surgical wound site is dry clean and intact. No focal neurological deficits. Will continue to follow. Evaluation was done and 31 minutes. Time with Patient: Greater than 30
[2024-10-11] MEDS: CHOLECALCIFEROL 25 MCG (1000 IU) TABLET PO SCH (12:12)
[2024-10-11] MEDS: ASCORBIC ACID 500 MG TAB PO SCH ×2 (12:12→20:40)
[2024-10-11] MEDS ORDERED: VANCOMYCIN IV PER PHARMACY 1 EACH MISC MISCELLANE PRN (12:55)
--- NOTE | 2024-10-11 15:10 | P.PN ---
Subjective Progress Note Date: 10/10/24 Principal diagnosis: Reason for follow-up is sepsis and pneumonia Patient is a 38-year-old male with a past medical history significant for rheumatoid arthritis spinal cord tumor history of cholecystectomy presenting to the hospital for evaluation of fever with rigors and chills patient has been diagnosed with sepsis secondary to pneumonia. On today's evaluation that is 10/10/2024,the patient did have improvement in his fever pattern with a low-grade fever of 99.7 at noon, patient is breathing slightly comfortably currently on 5 L nasal cannula oxygen did require BiPAP at night no nausea no vomiting or diarrhea Patient white count is 13.21 creatinine 0.41 sputum cultures are pending Objective - Vital Signs Vital signs: Vital Signs Temp 98.4 F 10/10/24 20:00 Pulse 114 H 10/10/24 21:00 Resp 21 10/10/24 21:00 BP 120/91 10/10/24 21:00 Pulse Ox 93 L 10/10/24 21:00 FiO2 40 10/10/24 18:00 Intake & Output 10/10/24 10/10/24 10/11/24 06:59 18:59 06:59 Intake Total 2810 2670 890 Output Total 1300 2200 1525 Balance 1510 470 -635 Weight 87.4 kg Intake: IV 1560 1680 390 Lactated Ringers 1,000 ml 1560 1430 390 @ 130 mls/hr IV .Q7H42M RON Rx#:[id number] Piperacillin-Tazobactam 3 200 .375 gm In Sodium Chloride 0.9% 100 ml @ 25 mls/hr IVPB Q8HR RON Rx# :[id number] cefTRIAXone 2 gm In 50 Dextrose 5% in Water 50 ml @ 100 mls/hr IVPB Q24HR RON Rx#:[id number] Oral 1250 990 500 Output: Urine 1300 2200 1525 Other: Voiding Method Urinal Urinal Urinal # Voids 2 # Bowel Movements 1 - Exam GENERAL DESCRIPTION: Middle-age male lying in bed in no distress RESPIRATORY SYSTEM: Unlabored breathing , decreased breath sounds at bases HEART: S1 S2 regular rate and rhythm , ABDOMEN: Soft , no tenderness EXTREMITIES: No edema feet - Labs CBC & Chem 7: 10/11/24 04:04 10/11/24 04:04 Labs: Abnormal Lab Results - Last 24 Hours (Table) 10/10/24 10/10/24 Range/Units 05:17 05:17 WBC 13.21 H (4.50-10.00) 10*3/uL RBC 3.64 L (4.40-5.60) 10*6/uL Hgb 11.0 L (13.0-17.0) g/dL Hct 32.5 L (39.6-50.0) % Immature Gran # 1.05 H (0.00-0.04) 10*3/uL Neutrophils # 10.78 H (1.80-7.70) 10*3/uL Lymphocytes # 0.63 L (0.90-5.00) 10*3/uL Eosinophils # 0.01 L (0.04-0.35) 10*3/uL Sodium 136 L (137-145) mmol/L Creatinine 0.41 L (0.66-1.25) mg/dL Glucose 108 H (74-99) mg/dL Microbiology - Last 24 Hours (Table) 10/08/24 12:43 Gram Stain - Preliminary Sputum Sputum Culture - Preliminary 10/08/24 12:08 Blood Culture - Preliminary Blood 10/09/24 10:38 Gram Stain - Preliminary Sputum Assessment and Plan (1) Sepsis Current Visit: Yes Status: Acute Code(s): A41.9 - SEPSIS, UNSPECIFIED ORGANISM SNOMED Code(s): 96605680 (2) Pneumonia Current Visit: Yes Status: Acute Code(s): J18.9 - PNEUMONIA, UNSPECIFIED ORGANISM SNOMED Code(s): 768369637 Plan: 1patient presented hospital with sepsis in this patient who did have fever tachycardia hypotension meeting ready for SIRS/sepsis source is right lower lobe pneumonia likely community-acquired as symptoms started with rigors and chills followed by cough and then vomiting 2blood and sputum culture have been obtained which are currently pending 3patient did have some clinical improvement antibiotic has been switched over to Zosyn by pulmonary will continue while waiting for the culture to finalize Dictation was produced using [employer] dictation software. please excuse any gram matical, word or spelling errors. Time with Patient: Less than 30
--- NOTE | 2024-10-11 15:11 | P.PN ---
Subjective Progress Note Date: 10/11/24 Principal diagnosis: Reason for follow-up is sepsis and pneumonia Patient is a 38-year-old male with a past medical history significant for rheumatoid arthritis spinal cord tumor history of cholecystectomy presenting to the hospital for evaluation of fever with rigors and chills patient has been diagnosed with sepsis secondary to pneumonia. On today's evaluation that is 10/11/2024, the patient did have improvement in his fever pattern and is afebrile this morning, the patient is on 5 L nasal cannula oxygen and breathing comfortably, the Pt denies having any chest pain or worsening cough, the patient denies having any abdominal pain no vomiting or any diarrhea has been reported by the nursing staff. Patient white count is 13.38 creatinine 0.46 sputum is growing strep pneumo sensitivities pending Objective - Vital Signs Vital signs: Vital Signs Temp 98.5 F 10/11/24 08:30 Pulse 112 H 10/11/24 12:30 Resp 16 10/11/24 12:30 BP 132/95 10/11/24 12:30 Pulse Ox 98 10/11/24 12:30 FiO2 40 10/10/24 18:00 Intake & Output 10/10/24 10/11/24 10/11/24 18:59 06:59 18:59 Intake Total 2670 2260 540 Output Total 2200 3225 2675 Balance 489 -376 -8457 Weight 87.4 kg Intake: IV 1680 1510 180 Lactated Ringers 1,000 ml 1430 1510 180 @ 100 mls/hr IV .Q10H RON Rx#:[id number] Piperacillin-Tazobactam 3 200 .375 gm In Sodium Chloride 0.9% 100 ml @ 25 mls/hr IVPB Q8HR RON Rx# :[id number] cefTRIAXone 2 gm In 50 Dextrose 5% in Water 50 ml @ 100 mls/hr IVPB Q24HR RON Rx#:[id number] Oral 990 750 360 Output: Urine 2200 3225 2675 Other: Voiding Method Urinal Urinal Urinal # Voids 2 # Bowel Movements 1 - Exam GENERAL DESCRIPTION: Middle-age male lying in bed in no distress RESPIRATORY SYSTEM: Unlabored breathing , decreased breath sounds at bases HEART: S1 S2 regular rate and rhythm , ABDOMEN: Soft , no tenderness EXTREMITIES: No edema feet - Labs CBC & Chem 7: 10/11/24 04:04 10/11/24 04:04 Labs: Abnormal Lab Results - Last 24 Hours (Table) 10/11/24 10/11/24 Range/Units 04:04 04:04 WBC 13.38 H (4.50-10.00) 10*3/uL RBC 3.63 L (4.40-5.60) 10*6/uL Hgb 10.7 L (13.0-17.0) g/dL Hct 32.8 L (39.6-50.0) % Immature Gran # 0.13 H (0.00-0.04) 10*3/uL Neutrophils # (Manual) 12.04 H (1.3-7.7) k/uL Metamyelocytes # (Man) 0.13 H (0) k/uL Creatinine 0.46 L (0.66-1.25) mg/dL Calcium 8.2 L (8.4-10.2) mg/dL Microbiology - Last 24 Hours (Table) 10/09/24 10:38 Gram Stain - Final Sputum Sputum Culture - Final Marta dubliniensis 10/08/24 12:43 Gram Stain - Preliminary Sputum Sputum Culture - Preliminary Streptococcus pneumoniae 10/08/24 12:08 Blood Culture - Preliminary Blood Assessment and Plan (1) Sepsis Current Visit: Yes Status: Acute Code(s): A41.9 - SEPSIS, UNSPECIFIED ORGANISM SNOMED Code(s): 59926012 (2) Pneumonia Current Visit: Yes Status: Acute Code(s): J18.9 - PNEUMONIA, UNSPECIFIED ORGANISM SNOMED Code(s): 438941245 Plan: 1patient presented hospital with sepsis in this patient who did have fever ta chycardia hypotension meeting ready for SIRS/sepsis source is right lower lobe pneumonia likely community-acquired as symptoms started with rigors and chills followed by cough and then vomiting 2blood cultures currently pending sputum is growing strep pneumo with sensitivities pending 3patient did have improved in the fever pattern significant tenderness on the right side of the chest will obtain rib x-ray 4discontinue Zosyn start the patient on Rocephin and Vanco while waiting for sensitivity on the strep pneumo to be finalized Dictation was produced using [employer] dictation software. please excuse any grammatical, word or spelling errors. Time with Patient: Less than 30
[2024-10-11] MEDS: VANCOMYCIN 1,500 MG in SODIUM CHLORIDE 0.9% 500 ML 500 ML IVPB SCH (15:59)
[2024-10-11] MEDS: cefTRIAXone 2 GM in DEXTROSE 5% IN WATER 50 ML IVPB SCH (16:02)
--- NOTE | 2024-10-11 16:18 | XR ---
EXAMINATION TYPE: XR ribs RT w pa chest xray DATE OF EXAM: 10/11/2024 4:03 PM COMPARISON: 10/11/2024, earlier today CLINICAL INDICATION: Male, 38 years old with history of right ant chest pain , ?rib #; PHH, pain TECHNIQUE: 5 views FINDINGS: The heart is borderline to mildly enlarged. Mild hyperinflation. Involvement of the small right pleur al effusion now. Prominent opacification throughout most of the right lung. Retrocardiac opacificatio n also present. Trace left pleural effusion. There is a subtle nondisplaced fracture of the right anterolateral fifth rib on one of the oblique vi ews. IMPRESSION: 1. Subtle nondisplaced fracture right anterolateral fifth rib. 2. Extensive airspace disease throughout most of the right lung. New small right pleural effusion. 3. Ongoing retrocardiac consolidation and trace left pleural effusion. [facility], Workstation: [facility], 10/11/2024 4:16 PM
[2024-10-11] MEDS ORDERED: Magnesium Replacement Protocol 1 EACH MISC MISCELLANE PRN (18:19)
[2024-10-11] MEDS: MAGNESIUM SULFATE-D5W PMX 1 GM in DEXTROSE/WATER 1 100ML.BAG IVPB SCH (20:40)
[2024-10-12 03:43] LABS: African American GFR (CKD) >90 (>60 ml/min/1.73 sqM); Anion Gap 6 mmol/L; Blood Urea Nitrogen 12 mg/dL (9-20); Carbon Dioxide 27 mmol/L (22-30); Chloride 105 mmol/L (98-107); Glucose 94 mg/dL (74-99); Magnesium 1.9 mg/dL (1.6-2.3); Non-African American GFR(CKD) >90 (>60 ml/min/1.73 sqM); Potassium 3.9 mmol/L (3.5-5.1); Sodium 138 mmol/L (137-145)
[2024-10-12 08:25] LABS: Basophils # (A) 0.08 X 10*3/uL (0.00-0.10); Basophils % (A) 0.8 %; Eosinophils # (A) 0.08 X 10*3/uL (0.04-0.35); Eosinophils % (A) 0.8 %; HCT 34.7 % (39.6-50.0); HGB 11.1 g/dL (13.0-17.0); Lymphocytes # (A) 1.07 X 10*3/uL (0.90-5.00); Lymphocytes % (A) 10.1 %; MCH 28.7 pg (27.0-32.0); MCV 89.7 FL (80.0-97.0); Mean Platelet Volume 10.4 FL (9.5-12.2); Monocytes % (A) 11.3 %; NRBC Per 100 WBC 0 X 10*3/uL (0.00-0.01); Neutrophils % (A) 72.5 %; Platelet Count 222 X 10*3/uL (140-440); RBC 3.87 X 10*6/uL (4.40-5.60); RDW 12.9 % (11.5-14.5); WBC 10.61 X 10*3/uL (4.50-10.00)
--- NOTE | 2024-10-12 12:55 | P.PN ---
Subjective Progress Note Date: 10/12/24 Principal diagnosis: Reason for follow-up is sepsis and pneumonia Patient is a 38-year-old male with a past medical history significant for rheumatoid arthritis spinal cord tumor history of cholecystectomy presenting to the hospital for evaluation of fever with rigors and chills patient has been diagnosed with sepsis secondary to pneumonia. On today's evaluation that is 10/12/2024, Patient last fever was at 4 PM yesterday no fever have been recorded since then patient mention he did have episode of coughing and shortness of breath last night currently on 8 L high flow nasal cannula oxygen patient did have a cough and is bringing some sputum with blood no vomiting or diarrhea. Patient white count is 10.61 creatinine 0.41 sputum with strep pneumo which is a sensitive pathogen rib x-ray did shows nondisplaced right anterolateral fifth rib fracture extensive airspace disease throughout most of the right lung Objective - Vital Signs Vital signs: Vital Signs Temp 98.8 F 10/12/24 07:14 Pulse 93 10/12/24 07:14 Resp 20 10/12/24 07:14 BP 120/73 10/12/24 07:14 Pulse Ox 95 10/12/24 07:14 FiO2 40 10/10/24 18:00 Intake & Output 10/11/24 10/12/24 10/12/24 18:59 06:59 18:59 Intake Total 2660 Output Total 3125 1999 Balance -465 Intake: IV 500 Lactated Ringers 1,000 ml 500 @ 100 mls/hr IV .Q10H RON Rx#:[id number] Intake, IV Titration 1300 Amount Piperacillin-Tazobactam 3 200 .375 gm In Sodium Chloride 0.9% 100 ml @ 25 mls/hr IVPB Q8HR RON Rx# :[id number] Vancomycin 1,500 mg In 1000 Sodium Chloride 0.9% 500 ml 500 ml @ 167 mls/hr IVPB Q8H RON Rx#: [id number] cefTRIAXone 2 gm In 100 Dextrose 5% in Water 50 ml @ 100 mls/hr IVPB Q24HR RON Rx#:[id number] Oral 860 Output: Urine 3125 1999 Other: Voiding Method Urinal # Voids 2 - Exam GENERAL DESCRIPTION: Middle-age male lying in bed in no distress RESPIRATORY SYSTEM: Unlabored breathing , decreased breath sounds at bases HEART: S1 S2 regular rate and rhythm , ABDOMEN: Soft , no tenderness EXTREMITIES: No edema feet - Labs CBC & Chem 7: 10/12/24 02:32 10/12/24 02:32 Labs: Abnormal Lab Results - Last 24 Hours (Table) 10/11/24 10/12/24 10/12/24 Range/Units 04:04 02:32 02:32 WBC 10.61 H (4.50-10.00) X 10*3/uL RBC 3.87 L (4.40-5.60) X 10*6/uL Hgb 11.1 L (13.0-17.0) g/dL Hct 34.7 L (39.6-50.0) % Immature Gran # 0.48 H (0.00-0.04) X 10*3/uL Monocytes # 1.20 H (0.20-1.00) X 10*3/uL Creatinine 0.41 L (0.66-1.25) mg/dL Calcium 8.0 L (8.4-10.2) mg/dL Procalcitonin 8.32 H (0.02-0.50) ng/mL Microbiology - Last 24 Hours (Table) 10/08/24 12:43 Gram Stain - Final Sputum Sputum Culture - Final Streptococcus pneumoniae 10/08/24 12:08 Blood Culture - Preliminary Blood 10/09/24 10:38 Gram Stain - Final Sputum Sputum Culture - Final Marta dubliniensis Assessment and Plan (1) Sepsis Current Visit: Yes Status: Acute Code(s): A41.9 - SEPSIS, UNSPECIFIED ORGANISM SNOMED Code(s): 45584274 (2) Pneumonia Current Visit: Yes Status: Acute Code(s): J18.9 - PNEUMONIA, UNSPECIFIED ORGANISM SNOMED Code(s): 604583079 Plan: 1patient presented hospital with sepsis in this patient who did have fever tachycardia hypotension meeting ready for SIRS/sepsis source is right lower lobe pneumonia likely community-acquired as symptoms started with rigors and chills followed by cough and then vomiting 2blood cultures currently pending sputum is growing strep pneumo which is a sensitive pathogen 3patient did have asked concerning for right fifth rib nondisplaced fracture as well as extensive pneumonia 4patient will be treated with Rocephin however discontinue vancomycin as strep pneumo is a sensitive pathogen however keeping in mind the patient did have extensive pneumonia will likely need IV antibiotics on discharge Dictation was produced using [employer] dictation software. please excuse any grammatical, word or spelling errors. Time with Patient: Less than 30
--- NOTE | 2024-10-12 16:18 | P.PN ---
Subjective Progress Note Date: 10/12/24 38-year-old male who was seen in the emergency department, October 08, for fever. The patient has a history of a malignant spinal cord tumor, and had a resection of the tumor, done in June 2024, at the [facility]. The patient was back at [facility], on Thursday, for an MRI of the spine, which was done under general anesthesia, with intubation. The patient likely aspirated at that time, and presents to the emergency department, with pneumonia. The patient came in complaining of fever, and pain in the right lower chest right upper abdominal area. In addition, the patient did have some nausea, and vomiting. Current labs include a white count 11.3, hemoglobin 11.8, hematocrit 35, and a platelet count of 166,000. The patient had a blood gas, showing a PO2 of 87, PCO2 of 39, pH of 7.43. That was on 100%. Sodium 134, potassium 4.4, chlorides 104, CO2 25, BUN 19, creatinine 0.47. Lactic acid was initially 2.6, repeat was 2.1. Calcium 7.7. Magnesium 2.4. Gallbladder ultrasound was negative. Chest x-ray showed some right perihilar fullness. CT scan of the chest abdomen and pelvis, showed significant consolidation of the superior segment of the right lower lobe, consistent with pneumonia. Repeat chest x-ray, showed bilateral airspace disease. Chest x-ray dated October 09, again shows bilateral airspace disease, right greater than left. There is also evidence of air bronchograms. The patient is currently on azithromycin and Rocephin per infectious diseases. In addition, the patient is on BiPAP, with settings of 15/5, 60%, and LR at 130 cc an hour. On 10/10/2024, patient is being seen for a follow-up. 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 Following that, the patient had a MRI of the brain that required intubation and mechanical ventilation. This was done also at [facility]. Apparently, he has some uncontrollable body jerks and claustrophobia that necessitated intubation mechanical ventilation. The patient presented to us with multifocal pneumonia. The patient was initially on Airvo and later on on a BiPAP for respiratory support and the patient this morning was taken off the BiPAP and the patient is currently on 5 L of O2 nasal cannula. Earlier today, he was on a BiPAP pressure of 15/5 with an FiO2 of 40%. Chest x-ray shows some improvement in the right lower lobe pulmonary consolidation. He continues to have multifocal patchy opacities. I am going to cover the patient with IV Zosyn as there is a concern for an aspiration pneumonia versus hospital- acquired pneumonia. Sputum cultures are still pending for now. White cell count of 13.2, hemoglobin 11 and a platelet count of 166. BUN is 15 with a creatinine of 0.4 and a sodium levels at 136. Slightly tachypneic. Much more comfortable compared to yesterday. Lactated Ringer running at 130 cc an hour. Able to move all of her extremities without any limitation. The patient is on Lovenox 40 mg subcu for DVT prophylaxis. Awake and alert and communicating. Still coughing thick brownish mucus. On 10/11/2024, the patient is being seen for a follow-up. Overnight, the patient was on a BiPAP and this morning he was dyspneic and oxygen and is on 5 L of oxygen by nasal cannula. He remains on lactated Ringer at 100 cc an hour. He has extensive pneumonia to follow-up chest x-ray from today is showing similar multifocal airspace disease with significant consolidation of the right lung. The patient remains on IV Zosyn. Coughing out some bloody mucus and the culture is positive for Streptococcus and Marta albicans. No other new complaints otherwise for now. The white cell count is at 13.3 with a hemoglobin 10.7 and a platelet count of 180. Sodium is at 137, potassium is at 3.9, BUN 13 with a creatinine of 0.4. Calcium level is at 8.2. No other significant events overnight. Awake and alert and communicating. Remains on Lovenox for DVT prophylaxis. 10/12/2024, the patient remains on IV antibiotics. The patient remains on IV Rocephin as the patient sputum sample was positive for streptococcal pneumonia. He is doing well. No pleurisy. No hemoptysis. He is currently on 6 L oxygen nasal cannula with a pulse ox of 97%. The white cell count is at 10 with a hemoglobin of 11 and a platelet count of 222. Electrolytes are all within normal limits with a BUN of 12 with a creatinine of 0.4. No pleurisy. No hemoptysis. No other significant events and the patient is feeling better. A follow-up chest x-ray is to be obtained for tomorrow. Objective - Vital Signs Vital signs: Vital Signs Temp 98.8 F 10/12/24 07:14 Pulse 93 10/12/24 07:14 Resp 20 10/12/24 07:14 BP 120/73 10/12/24 07:14 Pulse Ox 95 10/12/24 07:14 FiO2 40 10/10/24 18:00 Intake & Output 10/11/24 10/12/24 10/12/24 18:59 06:59 18:59 Intake Total 2660 Output Total 3125 1999 Balance Intake: IV 500 Lactated Ringers 1,000 ml 500 @ 100 mls/hr IV .Q10H RON Rx#:[id number] Intake, IV Titration 1300 Amount Piperacillin-Tazobactam 3 200 .375 gm In Sodium Chloride 0.9% 100 ml @ 25 mls/hr IVPB Q8HR RON Rx# :[id number] Vancomycin 1,500 mg In 1000 Sodium Chloride 0.9% 500 ml 500 ml @ 167 mls/hr IVPB Q8H RON Rx#: [id number] cefTRIAXone 2 gm In 100 Dextrose 5% in Water 50 ml @ 100 mls/hr IVPB Q24HR RON Rx#:[id number] Oral 860 Output: Urine 3125 1999 Other: Voiding Method Urinal # Voids 2 - Exam The patient appeared well nourished and normally developed. Vital signs as documented. The patient is currently on 6 L of oxygen by nasal cannula. No respiratory distress and the patient is calm and comfortable Head exam is unremarkable. No scleral icterus or corneal arcus noted. The cervical posterior surgical wound site is dry clean and intact. Neck is without jugular venous distension, thyromegaly, or carotid bruits. Carotid upstrokes are brisk bilaterally. Lungs are clear to auscultation and percussion. Crackles and bronchial breath sound specially on the right compared to the left. Cardiac exam reveals the PMI to be normally sized and situated. Rhythm is regular. First and second heart sounds normal. No murmurs, rubs or gallops. Abdominal exam reveals normal bowel sounds, no masses, no organomegaly and no aortic enlargement. Extremities are nonedematous and both femoral and pedal pulses are normal. Examination of the skin revealed no evidence of significant rashes, suspicious appearing nevi or other concerning lesions. Neurologically, the patient is awake and alert and the patient does not have any focal neurological deficit. Cranial nerves are essentially intact. - Labs CBC & Chem 7: 10/12/24 02:32 10/12/24 02:32 Labs: Abnormal Lab Results - Last 24 Hours (Table) 10/11/24 10/12/24 10/12/24 Range/Units 04:04 02:32 02:32 WBC 10.61 H (4.50-10.00) X 10*3/uL RBC 3.87 L (4.40-5.60) X 10*6/uL Hgb 11.1 L (13.0-17.0) g/dL Hct 34.7 L (39.6-50.0) % Immature Gran # 0.48 H (0.00-0.04) X 10*3/uL Monocytes # 1.20 H (0.20-1.00) X 10*3/uL Creatinine 0.41 L (0.66-1.25) mg/dL Calcium 8.0 L (8.4-10.2) mg/dL Procalcitonin 8.32 H (0.02-0.50) ng/mL Microbiology - Last 24 Hours (Table) 10/08/24 12:43 Gram Stain - Final Sputum Sputum Culture - Final Streptococcus pneumoniae 10/08/24 12:08 Blood Culture - Preliminary Blood 10/09/24 10:38 Gram Stain - Final Sputum Sputum Culture - Final Marta dubliniensis Assessment and Plan Plan: Acute hypoxemic respiratory failure, the patient was taken off the BiPAP and the patient is currently on 6 L of oxygen nasal cannula Bilateral multifocal pneumonia, likely pneumococcal. The sputum Gram stain and culture showed Streptococcus pneumonia and Marta the patient remains on IV Rocephin Spinal cord/cervical leptomeningeal glioma, surgically resected [facility] back in June 2024 Shortness of breath secondary to above, improving History of rheumatoid arthritis. Prior history of tobacco use. Plan: Titrate oxygen flow, currently on 6 L Sputum sample showing streptococcal pneumonia Continue Rocephin Lactated Ringer at rate of 40 cc an hour Incentive spirometry and pulmonary toileting Lovenox for DVT prophylaxis Cervical spine surgical wound site is dry clean and intact. No focal neurological deficits. Will continue to follow. Obtain a follow-up chest x-ray in the morning Clinically stable we will continue to follow
[2024-10-13] MEDS ORDERED: VANCOMYCIN TROUGH DUE 1 EACH MISC MISCELLANE ONE (05:00)
--- NOTE | 2024-10-13 07:23 | XR ---
EXAMINATION TYPE: XR chest 1V DATE OF EXAM: 10/13/2024 7:12 AM COMPARISON: Chest radiograph from two days prior. CLINICAL INDICATION: Male, 38 years old with history of pneumonia; [facility] TECHNIQUE: XR chest 1V Frontal view of the chest. FINDINGS: Lungs/Pleura: Similar multifocal airspace opacities. No evidence of pneumothorax or pleural effusion. Pulmonary vascularity: Unremarkable. Heart/mediastinum: Cardiomediastinal silhouette is unremarkable. Musculoskeletal: No acute osseous pathology. IMPRESSION: Similar multifocal airspace opacities. [facility], , 10/13/2024 7:21 AM
[2024-10-13 08:17] LABS: BUN/Creat Ratio 28.25 Ratio (12.00-20.00); Blood Urea Nitrogen 11.3 mg/dL (9.0-27.0); Calcium 8.1 mg/dL (8.7-10.3); Carbon Dioxide 21.3 mmol/L (21.6-31.8); Chloride 106 mmol/L (96-109); Glucose 106 mg/dL (70-110); Sodium 139 mmol/L (135-145)
[2024-10-13 09:21] LABS: HCT 37.4 % (39.6-50.0); HGB 12.4 g/dL (13.0-17.0); Lymphocytes # (M) 0.69 X 10*3/uL (0.90-5.00); MCH 28.8 pg (27.0-32.0); MCHC 33.2 g/dL (32.0-37.0); MCV 86.8 FL (80.0-97.0); Mean Platelet Volume 10.1 FL (9.5-12.2); Monocytes # (M) 0.59 X 10*3/uL (0.20-1.00); Myelocytes % 2 % (0-0); NRBC Per 100 WBC 0 X 10*3/uL (0.00-0.01); Neutrophils # (M) 7.77 X 10*3/uL (1.80-7.70); Neutrophils % (M) 79 %; Platelet Count 298 X 10*3/uL (140-440); Promyelocytes % 2 %; RBC 4.31 X 10*6/uL (4.40-5.60); RDW 12.6 % (11.5-14.5); WBC 9.84 X 10*3/uL (4.50-10.00)
--- NOTE | 2024-10-13 15:41 | P.PN ---
Subjective Progress Note Date: 10/13/24 Principal diagnosis: Reason for follow-up is sepsis and pneumonia Patient is a 38-year-old male with a past medical history significant for rheumatoid arthritis spinal cord tumor history of cholecystectomy presenting to the hospital for evaluation of fever with rigors and chills patient has been diagnosed with sepsis secondary to pneumonia. On today's evaluation that is 10/13/2024, patient has been afebrile, patient is breathing comfortably and is down to 4 L nasal oxygen, patient right-sided chest pain slightly decreased intensity still having a cough with sputum production no hemoptysis no vomiting or diarrhea. Patient did have a white count of 9.84 creatinine 0.4 Objective - Vital Signs Vital signs: Vital Signs Temp 97.7 F 10/13/24 07:08 Pulse 78 10/13/24 09:57 Resp 18 10/13/24 07:08 BP 122/68 10/13/24 07:08 Pulse Ox 98 10/13/24 09:51 FiO2 40 10/10/24 18:00 Intake & Output 10/12/24 10/13/24 10/13/24 18:59 06:59 18:59 Intake Total 2270 Output Total 2150 900 Balance 120 -900 Intake: Oral 2270 Output: Urine 2150 900 Other: Voiding Method Urinal - Exam GENERAL DESCRIPTION: Middle-age male lying in bed in no distress RESPIRATORY SYSTEM: Unlabored breathing , decreased breath sounds at bases HEART: S1 S2 regular rate and rhythm , ABDOMEN: Soft , no tenderness EXTREMITIES: No edema feet - Labs CBC & Chem 7: 10/13/24 05:12 10/13/24 05:12 Labs: Abnormal Lab Results - Last 24 Hours (Table) 10/13/24 10/13/24 Range/Units 05:12 05:12 RBC 4.31 L (4.40-5.60) X 10*6/uL Hgb 12.4 L (13.0-17.0) g/dL Hct 37.4 L (39.6-50.0) % Neutrophils # (Manual) 7.77 H (1.80-7.70) X 10*3/uL Lymphocytes # (Manual) 0.69 L (0.90-5.00) X 10*3/uL Basophils # (Manual) 0.20 H (0.00-0.10) X 10*3/uL Carbon Dioxide 21.3 L (21.6-31.8) mmol/L Creatinine 0.4 L (0.6-1.5) mg/dL BUN/Creatinine Ratio 28.25 H (12.00-20.00) Ratio Calcium 8.1 L (8.7-10.3) mg/dL Microbiology - Last 24 Hours (Table) 10/08/24 12:43 Gram Stain - Final Sputum Sputum Culture - Final Streptococcus pneumoniae Assessment and Plan (1) Sepsis Current Visit: Yes Status: Acute Code(s): A41.9 - SEPSIS, UNSPECIFIED ORGANISM SNOMED Code(s): 79486352 (2) Pneumonia Current Visit: Yes Status: Acute Code(s): J18.9 - PNEUMONIA, UNSPECIFIED ORGANISM SNOMED Code(s): 985079016 Plan: 1patient presented hospital with sepsis in this patient who did have fever tachycardia hypotension meeting ready for SIRS/sepsis source is right lower lobe pneumonia likely community-acquired as symptoms started with rigors and chills followed by cough and then vomiting 2blood cultures currently pending sputum is growing strep pneumo which is a sensitive pathogen 3patient did have rib x-ray concerning for right fifth rib nondisplaced fracture as well as extensive pneumonia 4patient is afebrile white count is normalized we will treat with Rocephin plan is for midline and continue with IV Rocephin to finish total of 2-week course of therapy Dictation was produced using [employer] dictation software. please excuse any grammatical, word or spelling errors. Time with Patient: Less than 30
--- NOTE | 2024-10-13 15:47 | P.PN ---
Subjective Progress Note Date: 10/13/24 38-year-old male who was seen in the emergency department, October 08, for fever. The patient has a history of a malignant spinal cord tumor, and had a resection of the tumor, done in June 2024, at the [facility]. The patient was back at [facility], on Thursday, for an MRI of the spine, which was done under general anesthesia, with intubation. The patient likely aspirated at that time, and presents to the emergency department, with pneumonia. The patient came in complaining of fever, and pain in the right lower chest right upper abdominal area. In addition, the patient did have some nausea, and vomiting. Current labs include a white count 11.3, hemoglobin 11.8, hematocrit 35, and a platelet count of 166,000. The patient had a blood gas, showing a PO2 of 87, PCO2 of 39, pH of 7.43. That was on 100%. Sodium 134, potassium 4.4, chlorides 104, CO2 25, BUN 19, creatinine 0.47. Lactic acid was initially 2.6, repeat was 2.1. Calcium 7.7. Magnesium 2.4. Gallbladder ultrasound was negative. Chest x-ray showed some right perihilar fullness. CT scan of the chest abdomen and pelvis, showed significant consolidation of the superior segment of the right lower lobe, consistent with pneumonia. Repeat chest x-ray, showed bilateral airspace disease. Chest x-ray dated October 09, again shows bilateral airspace disease, right greater than left. There is also evidence of air bronchograms. The patient is currently on azithromycin and Rocephin per infectious diseases. In addition, the patient is on BiPAP, with settings of 15/5, 60%, and LR at 130 cc an hour. On 10/10/2024, patient is being seen for a follow-up. 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 Following that, the patient had a MRI of the brain that required intubation and mechanical ventilation. This was done also at [facility]. Apparently, he has some uncontrollable body jerks and claustrophobia that necessitated intubation mechanical ventilation. The patient presented to us with multifocal pneumonia. The patient was initially on Airvo and later on on a BiPAP for respiratory support and the patient this morning was taken off the BiPAP and the patient is currently on 5 L of O2 nasal cannula. Earlier today, he was on a BiPAP pressure of 15/5 with an FiO2 of 40%. Chest x-ray shows some improvement in the right lower lobe pulmonary consolidation. He continues to have multifocal patchy opacities. I am going to cover the patient with IV Zosyn as there is a concern for an aspiration pneumonia versus hospital- acquired pneumonia. Sputum cultures are still pending for now. White cell count of 13.2, hemoglobin 11 and a platelet count of 166. BUN is 15 with a creatinine of 0.4 and a sodium levels at 136. Slightly tachypneic. Much more comfortable compared to yesterday. Lactated Ringer running at 130 cc an hour. Able to move all of her extremities without any limitation. The patient is on Lovenox 40 mg subcu for DVT prophylaxis. Awake and alert and communicating. Still coughing thick brownish mucus. On 10/11/2024, the patient is being seen for a follow-up. Overnight, the patient was on a BiPAP and this morning he was dyspneic and oxygen and is on 5 L of oxygen by nasal cannula. He remains on lactated Ringer at 100 cc an hour. He has extensive pneumonia to follow-up chest x-ray from today is showing similar multifocal airspace disease with significant consolidation of the right lung. The patient remains on IV Zosyn. Coughing out some bloody mucus and the culture is positive for Streptococcus and Marta albicans. No other new complaints otherwise for now. The white cell count is at 13.3 with a hemoglobin 10.7 and a platelet count of 180. Sodium is at 137, potassium is at 3.9, BUN 13 with a creatinine of 0.4. Calcium level is at 8.2. No other significant events overnight. Awake and alert and communicating. Remains on Lovenox for DVT prophylaxis. 10/12/2024, the patient remains on IV antibiotics. The patient remains on IV Rocephin as the patient sputum sample was positive for streptococcal pneumonia. He is doing well. No pleurisy. No hemoptysis. He is currently on 6 L oxygen nasal cannula with a pulse ox of 97%. The white cell count is at 10 with a hemoglobin of 11 and a platelet count of 222. Electrolytes are all within normal limits with a BUN of 12 with a creatinine of 0.4. No pleurisy. No hemoptysis. No other significant events and the patient is feeling better. A follow-up chest x-ray is to be obtained for tomorrow. On 10/13/2024, the patient is stable on 4 L of oxygen by nasal cannula with a pulse ox of 96 to 97%. Repeat chest x-ray shows slight improvement in extensive right lung consolidation. Remains on IV Rocephin. No hemoptysis. No pleurisy. Blood work shows a white cell count of 9.8 with a hemoglobin 12.4 and platelet count of 298. Electrolytes are normal, BUN is 11 with a creatinine of 0.4. No other significant events overnight. He is slow to progress however he is reporting daily improvement. Objective - Vital Signs Vital signs: Vital Signs Temp 97.7 F 10/13/24 07:08 Pulse 78 10/13/24 09:57 Resp 18 10/13/24 07:08 BP 122/68 10/13/24 07:08 Pulse Ox 98 10/13/24 09:51 FiO2 40 10/10/24 18:00 Intake & Output 10/12/24 10/13/24 10/13/24 18:59 06:59 18:59 Intake Total 2270 Output Total 2150 900 Balance 120 -900 Intake: Oral 2270 Output: Urine 2150 900 Other: Voiding Method Urinal - Exam The patient appeared well nourished and normally developed. Vital signs as documented. The patient is currently on 4 L of oxygen by nasal cannula. No respiratory distress and the patient is calm and comfortable Head exam is unremarkable. No scleral icterus or corneal arcus noted. The cervical posterior surgical wound site is dry clean and intact. Neck is without jugular venous distension, thyromegaly, or carotid bruits. Carotid upstrokes are brisk bilaterally. Lungs are clear to auscultation and percussion. Crackles and bronchial breath sound specially on the right compared to the left. Cardiac exam reveals the PMI to be normally sized and situated. Rhythm is regular. First and second heart sounds normal. No murmurs, rubs or gallops. Abdominal exam reveals normal bowel sounds, no masses, no organomegaly and no aortic enlargement. Extremities are nonedematous and both femoral and pedal pulses are normal. Examination of the skin revealed no evidence of significant rashes, suspicious appearing nevi or other concerning lesions. Neurologically, the patient is awake and alert and the patient does not have any focal neurological deficit. Cranial nerves are essentially intact. - Labs CBC & Chem 7: 10/13/24 05:12 10/13/24 05:12 Labs: Abnormal Lab Results - Last 24 Hours (Table) 10/13/24 10/13/24 Range/Units 05:12 05:12 RBC 4.31 L (4.40-5.60) X 10*6/uL Hgb 12.4 L (13.0-17.0) g/dL Hct 37.4 L (39.6-50.0) % Neutrophils # (Manual) 7.77 H (1.80-7.70) X 10*3/uL Lymphocytes # (Manual) 0.69 L (0.90-5.00) X 10*3/uL Basophils # (Manual) 0.20 H (0.00-0.10) X 10*3/uL Carbon Dioxide 21.3 L (21.6-31.8) mmol/L Creatinine 0.4 L (0.6-1.5) mg/dL BUN/Creatinine Ratio 28.25 H (12.00-20.00) Ratio Calcium 8.1 L (8.7-10.3) mg/dL Microbiology - Last 24 Hours (Table) 10/08/24 12:43 Gram Stain - Final Sputum Sputum Culture - Final Streptococcus pneumoniae Assessment and Plan Plan: Acute hypoxemic respiratory failure, the patient was taken off the BiPAP and the patient is currently on 4 L of oxygen nasal cannula Bilateral multifocal pneumonia, likely pneumococcal. The sputum Gram stain and culture showed Streptococcus pneumonia and Marta the patient remains on IV Rocephin Spinal cord/cervical leptomeningeal glioma, surgically resected [facility] back in June 2024 Shortness of breath secondary to above, improving History of rheumatoid arthritis. Prior history of tobacco use. Plan: Titrate oxygen flow, currently on 4 L Sputum sample showing streptococcal pneumonia Continue Rocephin Follow-up chest x-ray was noted and the patient continues to have consolidation in the right lung. No evidence of any pleural effusion. Is an empyema Incentive spirometry and pulmonary toileting Lovenox for DVT prophylaxis Cervical spine surgical wound site is dry clean and intact. No focal neurological deficits. Will continue to follow. Wean FiO2 as tolerated Increase mobility Incentive spirometer Clinically stable we will continue to follow
--- NOTE | 2024-10-13 21:30 | P.PN ---
Subjective Progress Note Date: 10/10/24 38-year-old male present to the emergency department with concerns with fever. Onset was the middle of the night. Patient did have prolonged MRI done yesterday to evaluate for previous spinal tumor and was intubated during this secondary to the length of the MRI. Patient denies cough. Patient states it hurts to take a deep breath. Patient has some discomfort right lower rib/upper abdomen region. Patient states this is near the region of his previous gallbladder problem however he has had cholecystectomy. Patient was sweating throughout the night and had fever of 100.6. Patient did take Motrin an hour ago. Patient did vomit a couple of times. EKG: Lateral biphasic T waves. Inferior T wave inversion, sinus rhythm, normal axis, normal QRS -CT scan chest abdomen pelvis with concern for right posterior infiltrate Blood work reveals WBC of 8.95, hemoglobin of 11.8 and platelet count of 149, sodium 135, potassium 3.8, BUN/creatinine of 17/0.55 lactic acid level of 2.3, total bilirubin normal at 1.0 calcium 7.6 which is low, procalcitonin of 3.50 Viral drug screen is negative UA is unremarkable 10/10/2024 Patient was admitted to hospital due to multifocal pneumonia. Awake alert and oriented. Exertional dyspnea and cough. Afebrile. Currently on BiPAP 15 x 5 with FiO2 of 40%. Chest x-ray today showed similar multifocal airspace opacities. Laboratory data showed WBC 13.2 hemoglobin 11.0 and platelets 166, sodium 136 potassium 3.9 chloride 102 bicarb is 26 BUN 15 and creatinine 0.41 and blood sugar 108 and calcium 8.7. Patient was on antibiotics in the home with ceftriaxone. Patient is also on IV hydration with Ringer's lactate at 130 cc/h. Current medications reviewed. Objective - Vital Signs Vital signs: Vital Signs Temp 100.2 F H 10/10/24 16:00 Pulse 109 H 10/10/24 18:00 Resp 21 10/10/24 18:00 BP 142/86 10/10/24 18:00 Pulse Ox 96 10/10/24 18:00 FiO2 40 10/10/24 18:00 Intake & Output 10/09/24 10/10/24 10/10/24 18:59 06:59 18:59 Intake Total 3230 2810 2670 Output Total 2900 1300 2200 Balance 330 1510 470 Weight 87.4 kg Intake: IV 1610 1560 1680 Lactated Ringers 1,000 ml 1560 1560 1430 @ 130 mls/hr IV .[id number] [facility] Rx#:[id number] Piperacillin-Tazobactam 3 200 .375 gm In Sodium Chloride 0.9% 100 ml @ 25 mls/hr IVPB Q8HR [facility] Rx# :[id number] cefTRIAXone 2 gm In 50 50 Dextrose 5% in Water 50 ml @ 100 mls/hr IVPB Q24HR [facility] Rx#:[id number] Oral 1620 1250 990 Output: Urine 2900 1300 2200 Other: Voiding Method Urinal Urinal Urinal # Voids 2 # Bowel Movements 1 - Exam PHYSICAL EXAMINATION: Patient is lying in the bed,, no acute distress, awake alert and oriented. On BiPAP. HEENT: Normocephalic. Neck is supple. Pupils reactive. Nostrils clear. Oral cavity is moist. Neck reveals no JVD, carotid bruits, or thyromegaly. CHEST EXAMINATION: Trachea is central. Symmetrical expansion. Scattered coarse breath sounds. Nonlabored breathing.. CARDIAC: Normal S1, S2 with no gallops. No murmurs ABDOMEN: Soft. Bowel sounds normal. No organomegaly. No abdominal bruits. Extremities: reveal no edema. No clubbing or cyanosis Neurologically awake, alert, oriented x3, able to move all extremities. No gross focal deficits noted Skin: No rash or skin lesions. Psychiatric: Coperative. Nonsuicidal Musculoskeletal: No joint swelling or deformity. - Labs CBC & Chem 7: 10/13/24 05:12 10/13/24 05:12 Labs: Abnormal Lab Results - Last 24 Hours (Table) 10/10/24 10/10/24 Range/Units 05:17 05:17 WBC 13.21 H (4.50-10.00) 10*3/uL RBC 3.64 L (4.40-5.60) 10*6/uL Hgb 11.0 L (13.0-17.0) g/dL Hct 32.5 L (39.6-50.0) % Immature Gran # 1.05 H (0.00-0.04) 10*3/uL Neutrophils # 10.78 H (1.80-7.70) 10*3/uL Lymphocytes # 0.63 L (0.90-5.00) 10*3/uL Eosinophils # 0.01 L (0.04-0.35) 10*3/uL Sodium 136 L (137-145) mmol/L Creatinine 0.41 L (0.66-1.25) mg/dL Glucose 108 H (74-99) mg/dL Microbiology - Last 24 Hours (Table) 10/08/24 12:43 Gram Stain - Preliminary Sputum Sputum Culture - Preliminary 10/08/24 12:08 Blood Culture - Preliminary Blood 10/09/24 10:38 Gram Stain - Preliminary Sputum Assessment and Plan Assessment: 1. Acute hypoxic respiratory failure related to bilateral pneumonia - Patient was initially placed on O2 per nasal cannula and was later transitioned to BiPAP due to desaturation - Continues to use BiPAP intermittently; titrate FiO2 keeping O2 saturation greater than 90% 2. Bilateral multifocal pneumonia; possible aspiration while getting MRI patient had an MRI, with general anesthesia and intubation on Thursday, at [facility]. He likely aspirated at that time. The patient presents to ER with bilateral pneumonia, right greater than left. Has been seen by infectious diseases. He is on azithromycin and Rocephin. Will monitor CBC, CRP and procalcitonin 3. Status postresection malignant spinal cord tumor; June 2024 -Follow-up MRI on 10/07/2024 with general anesthesia requiring intubation 4. History of rheumatoid arthritis 5. History of tobacco use DVT prophylaxis; Lovenox subcu CODE STATUS; full code Time with Patient: Greater than 30
--- NOTE | 2024-10-13 21:34 | P.PN ---
Subjective Progress Note Date: 10/11/24 38-year-old male present to the emergency department with concerns with fever. Onset was the middle of the night. Patient did have prolonged MRI done yesterday to evaluate for previous spinal tumor and was intubated during this secondary to the length of the MRI. Patient denies cough. Patient states it hurts to take a deep breath. Patient has some discomfort right lower rib/upper abdomen region. Patient states this is near the region of his previous gallbladder problem however he has had cholecystectomy. Patient was sweating throughout the night and had fever of 100.6. Patient did take Motrin an hour ago. Patient did vomit a couple of times. EKG: Lateral biphasic T waves. Inferior T wave inversion, sinus rhythm, normal axis, normal QRS -CT scan chest abdomen pelvis with concern for right posterior infiltrate Blood work reveals WBC of 8.95, hemoglobin of 11.8 and platelet count of 149, sodium 135, potassium 3.8, BUN/creatinine of 17/0.55 lactic acid level of 2.3, total bilirubin normal at 1.0 calcium 7.6 which is low, procalcitonin of 3.50 Viral drug screen is negative UA is unremarkable 10/10/2024 Patient was admitted to hospital due to multifocal pneumonia. Awake alert and oriented. Exertional dyspnea and cough. Afebrile. Currently on BiPAP 15 x 5 with FiO2 of 40%. Chest x-ray today showed similar multifocal airspace opacities. Laboratory data showed WBC 13.2 hemoglobin 11.0 and platelets 166, sodium 136 potassium 3.9 chloride 102 bicarb is 26 BUN 15 and creatinine 0.41 and blood sugar 108 and calcium 8.7. Patient was on antibiotics in the home with ceftriaxone. Patient is also on IV hydration with Ringer's lactate at 130 cc/h. 10/11/2024 Patient is currently in the MICU. Was on BiPAP this morning and transition to 5 L oxygen via nasal cannula. Shortness of breath is better. Afebrile. Patient is on antibiotics in the form of Zosyn. Laboratory data showed WBC 13.3 hemoglobin 10.7 and platelets 180 sodium 137 potassium 3.9 chloride 104 bicarb is 25 BUN 39 creatinine 0.46 and blood sugar 95 and calcium 8.2, procalcitonin level is 8.32. ID and pulmonary is on board. Current medications reviewed. Objective - Vital Signs Vital signs: Vital Signs Temp 98.9 F 10/11/24 19:10 Pulse 101 H 10/11/24 19:10 Resp 18 10/11/24 19:10 BP 123/79 10/11/24 19:10 Pulse Ox 99 10/11/24 19:10 FiO2 40 10/10/24 18:00 Intake & Output 10/11/24 10/11/24 10/12/24 06:59 18:59 06:59 Intake Total 2260 2660 Output Total 3225 3125 Balance -965 -465 Weight 87.4 kg Intake: IV 1510 500 Lactated Ringers 1,000 ml 1510 500 @ 100 mls/hr IV .Q10H [facility] Rx#:[id number] Intake, IV Titration 1300 Amount Piperacillin-Tazobactam 3 200 .375 gm In Sodium Chloride 0.9% 100 ml @ 25 mls/hr IVPB Q8HR [facility] Rx# :[id number] Vancomycin 1,500 mg In 1000 Sodium Chloride 0.9% 500 ml 500 ml @ 167 mls/hr IVPB Q8H [facility] Rx#: [id number] cefTRIAXone 2 gm In 100 Dextrose 5% in Water 50 ml @ 100 mls/hr IVPB Q24HR [facility] Rx#:[id number] Oral 750 860 Output: Urine 3225 3125 Other: Voiding Method Urinal Urinal - Exam PHYSICAL EXAMINATION: Patient is lying in the bed,, no acute distress, awake alert and oriented. HEENT: Normocephalic. Neck is supple. Pupils reactive. Nostrils clear. Oral cavity is moist. Neck reveals no JVD, carotid bruits, or thyromegaly. CHEST EXAMINATION: Trachea is central. Symmetrical expansion. Scattered coarse breath sounds. Nonlabored breathing.. CARDIAC: Normal S1, S2 with no gallops. No murmurs ABDOMEN: Soft. Bowel sounds normal. No organomegaly. No abdominal bruits. Extremities: reveal no edema. No clubbing or cyanosis Neurologically awake, alert, oriented x3, able to move all extremities. No gross focal deficits noted Skin: No rash or skin lesions. Psychiatric: Coperative. Nonsuicidal Musculoskeletal: No joint swelling or deformity. - Labs CBC & Chem 7: 10/13/24 05:12 10/13/24 05:12 Labs: Abnormal Lab Results - Last 24 Hours (Table) 10/11/24 10/11/24 10/11/24 Range/Units 04:04 04:04 04:04 WBC 13.38 H (4.50-10.00) 10*3/uL RBC 3.63 L (4.40-5.60) 10*6/uL Hgb 10.7 L (13.0-17.0) g/dL Hct 32.8 L (39.6-50.0) % Immature Gran # 0.13 H (0.00-0.04) 10*3/uL Neutrophils # (Manual) 12.04 H (1.3-7.7) k/uL Metamyelocytes # (Man) 0.13 H (0) k/uL Creatinine 0.46 L (0.66-1.25) mg/dL Calcium 8.2 L (8.4-10.2) mg/dL Procalcitonin 8.32 H (0.02-0.50) ng/mL Microbiology - Last 24 Hours (Table) 10/09/24 10:38 Gram Stain - Final Sputum Sputum Culture - Final Marta dubliniensis 10/08/24 12:43 Gram Stain - Preliminary Sputum Sputum Culture - Preliminary Streptococcus pneumoniae 10/08/24 12:08 Blood Culture - Preliminary Blood Assessment and Plan Assessment: 1. Acute hypoxic respiratory failure related to bilateral pneumonia - Patient was initially placed on O2 per nasal cannula and was later transitioned to BiPAP due to desaturation - Continues to use BiPAP intermittently; titrate FiO2 keeping O2 saturation greater than 90% 2. Bilateral multifocal pneumonia; possible aspiration while getting MRI patient had an MRI, with general anesthesia and intubation on Thursday, at [facility]. He likely aspirated at that time. The patient presents to ER with bilateral pneumonia, right greater than left. Has been seen by infectious diseases. On Zosyn.. Will monitor CBC, CRP and procalcitonin Follow-up blood cultures and sputum cultures. 3. 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 4. History of rheumatoid arthritis 5. History of tobacco use DVT prophylaxis; Lovenox subcu CODE STATUS; full code Time with Patient: Greater than 30
--- NOTE | 2024-10-13 21:38 | P.PN ---
Subjective Progress Note Date: 10/12/24 38-year-old male present to the emergency department with concerns with fever. Onset was the middle of the night. Patient did have prolonged MRI done yesterday to evaluate for previous spinal tumor and was intubated during this secondary to the length of the MRI. Patient denies cough. Patient states it hurts to take a deep breath. Patient has some discomfort right lower rib/upper abdomen region. Patient states this is near the region of his previous gallbladder problem however he has had cholecystectomy. Patient was sweating throughout the night and had fever of 100.6. Patient did take Motrin an hour ago. Patient did vomit a couple of times. EKG: Lateral biphasic T waves. Inferior T wave inversion, sinus rhythm, normal axis, normal QRS -CT scan chest abdomen pelvis with concern for right posterior infiltrate Blood work reveals WBC of 8.95, hemoglobin of 11.8 and platelet count of 149, sodium 135, potassium 3.8, BUN/creatinine of 17/0.55 lactic acid level of 2.3, total bilirubin normal at 1.0 calcium 7.6 which is low, procalcitonin of 3.50 Viral drug screen is negative UA is unremarkable 10/10/2024 Patient was admitted to hospital due to multifocal pneumonia. Awake alert and oriented. Exertional dyspnea and cough. Afebrile. Currently on BiPAP 15 x 5 with FiO2 of 40%. Chest x-ray today showed similar multifocal airspace opacities. Laboratory data showed WBC 13.2 hemoglobin 11.0 and platelets 166, sodium 136 potassium 3.9 chloride 102 bicarb is 26 BUN 15 and creatinine 0.41 and blood sugar 108 and calcium 8.7. Patient was on antibiotics in the home with ceftriaxone. Patient is also on IV hydration with Ringer's lactate at 130 cc/h. 10/11/2024 Patient is currently in the MICU. Was on BiPAP this morning and transition to 5 L oxygen via nasal cannula. Shortness of breath is better. Afebrile. Patient is on antibiotics in the form of Zosyn. Laboratory data showed WBC 13.3 hemoglobin 10.7 and platelets 180 sodium 137 potassium 3.9 chloride 104 bicarb is 25 BUN 39 creatinine 0.46 and blood sugar 95 and calcium 8.2, procalcitonin level is 8.32. ID and pulmonary is on board. 10/12/2024 Patient is in the medical floor. Awake alert and oriented. Currently on oxygen at 6 L via nasal cannula. Shortness of breath is better. No complaints of chest pain. Patient has been afebrile. Currently antibiotics in form of ceftriaxone. Sputum culture showed Streptococcus pneumonia and Marta. Patient is on Ringer's lactate at 100 cc/h. Laboratory data showed WBC trending down to 10.6 hemoglobin 11.1 and platelets 222 Sodium 138 potassium 3.9 chloride 105 bicarb is 27 BUN 12 and creatinine 0.41 and blood sugar 94 and calcium 8.0. Current medications reviewed. Objective - Vital Signs Vital signs: Vital Signs Temp 98.6 F 10/12/24 14:15 Pulse 85 10/12/24 21:17 Resp 18 10/12/24 21:17 BP 117/66 10/12/24 14:15 Pulse Ox 97 10/12/24 14:15 FiO2 40 10/10/24 18:00 Intake & Output 10/12/24 10/12/24 10/13/24 06:59 18:59 06:59 Output Total 1999 Balance -1999 Output: Urine 1999 Other: # Voids 2 - Exam PHYSICAL EXAMINATION: Patient is lying in the bed,, no acute distress, awake alert and oriented. HEENT: Normocephalic. Neck is supple. Pupils reactive. Nostrils clear. Oral cavity is moist. Neck reveals no JVD, carotid bruits, or thyromegaly. CHEST EXAMINATION: Trachea is central. Symmetrical expansion. Basilar coarse sounds. Nonlabored breathing. CARDIAC: Normal S1, S2 with no gallops. No murmurs ABDOMEN: Soft. Bowel sounds normal. No organomegaly. No abdominal bruits. Extremities: reveal no edema. No clubbing or cyanosis Neurologically awake, alert, oriented x3, able to move all extremities. No gross focal deficits noted Skin: No rash or skin lesions. Psychiatric: Coperative. Nonsuicidal Musculoskeletal: No joint swelling or deformity. - Labs CBC & Chem 7: 10/14/24 04:31 10/14/24 04:31 Labs: Abnormal Lab Results - Last 24 Hours (Table) 10/12/24 10/12/24 Range/Units 02:32 02:32 WBC 10.61 H (4.50-10.00) X 10*3/uL RBC 3.87 L (4.40-5.60) X 10*6/uL Hgb 11.1 L (13.0-17.0) g/dL Hct 34.7 L (39.6-50.0) % Immature Gran # 0.48 H (0.00-0.04) X 10*3/uL Monocytes # 1.20 H (0.20-1.00) X 10*3/uL Creatinine 0.41 L (0.66-1.25) mg/dL Calcium 8.0 L (8.4-10.2) mg/dL Microbiology - Last 24 Hours (Table) 10/08/24 12:43 Gram Stain - Final Sputum Sputum Culture - Final Streptococcus pneumoniae 10/08/24 12:08 Blood Culture - Preliminary Blood Assessment and Plan Assessment: 1. Acute hypoxic respiratory failure related to bilateral pneumonia - Patient was initially placed on O2 per nasal cannula and was later transitioned to BiPAP due to desaturation. Currently on 6 L via nasal cannula. -Continue to titrate down oxygen to room air. 2. Bilateral multifocal pneumonia; possible aspiration while getting MRI patient had an MRI, with general anesthesia and intubation on Thursday, at [facility]. He likely aspirated at that time. The patient presents to ER with bilateral pneumonia, right greater than left. Patient is on IV ceftriaxone.. Sputum cultures showed strep pneumonia and Marta. Leukocytosis trending down. 3. 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 4. History of rheumatoid arthritis 5. History of tobacco use DVT prophylaxis; Lovenox subcu CODE STATUS; full code Time with Patient: Greater than 30
--- NOTE | 2024-10-13 21:44 | P.PN ---
Subjective Progress Note Date: 10/13/24 38-year-old male present to the emergency department with concerns with fever. Onset was the middle of the night. Patient did have prolonged MRI done yesterday to evaluate for previous spinal tumor and was intubated during this secondary to the length of the MRI. Patient denies cough. Patient states it hurts to take a deep breath. Patient has some discomfort right lower rib/upper abdomen region. Patient states this is near the region of his previous gallbladder problem however he has had cholecystectomy. Patient was sweating throughout the night and had fever of 100.6. Patient did take Motrin an hour ago. Patient did vomit a couple of times. EKG: Lateral biphasic T waves. Inferior T wave inversion, sinus rhythm, normal axis, normal QRS -CT scan chest abdomen pelvis with concern for right posterior infiltrate Blood work reveals WBC of 8.95, hemoglobin of 11.8 and platelet count of 149, sodium 135, potassium 3.8, BUN/creatinine of 17/0.55 lactic acid level of 2.3, total bilirubin normal at 1.0 calcium 7.6 which is low, procalcitonin of 3.50 Viral drug screen is negative UA is unremarkable 10/10/2024 Patient was admitted to hospital due to multifocal pneumonia. Awake alert and oriented. Exertional dyspnea and cough. Afebrile. Currently on BiPAP 15 x 5 with FiO2 of 40%. Chest x-ray today showed similar multifocal airspace opacities. Laboratory data showed WBC 13.2 hemoglobin 11.0 and platelets 166, sodium 136 potassium 3.9 chloride 102 bicarb is 26 BUN 15 and creatinine 0.41 and blood sugar 108 and calcium 8.7. Patient was on antibiotics in the home with ceftriaxone. Patient is also on IV hydration with Ringer's lactate at 130 cc/h. 10/11/2024 Patient is currently in the MICU. Was on BiPAP this morning and transition to 5 L oxygen via nasal cannula. Shortness of breath is better. Afebrile. Patient is on antibiotics in the form of Zosyn. Laboratory data showed WBC 13.3 hemoglobin 10.7 and platelets 180 sodium 137 potassium 3.9 chloride 104 bicarb is 25 BUN 39 creatinine 0.46 and blood sugar 95 and calcium 8.2, procalcitonin level is 8.32. ID and pulmonary is on board. 06/14/2024 Patient is in the medical floor. Awake alert and oriented. Currently on oxygen at 6 L via nasal cannula. Shortness of breath is better. No complaints of chest pain. Patient has been afebrile. Currently antibiotics in form of ceftriaxone. Sputum culture showed Streptococcus pneumonia and Marta. Patient is on Ringer's lactate at 100 cc/h. Laboratory data showed WBC trending down to 10.6 hemoglobin 11.1 and platelets 222 Sodium 138 potassium 3.9 chloride 105 bicarb is 27 BUN 12 and creatinine 0.41 and blood sugar 94 and calcium 8.0. 10/13/2024 Patient is lying in the bed. Awake alert and oriented. Denies any complaints of chest pain. Patient was able to ambulate to the bathroom. Shortness of breath is much improved. Currently requiring 4 L oxygen via nasal cannula. Chest x-ray today showed similar multifocal airspace opacities. Laboratory data showed WBC 9.8 hemoglobin 12.4 and platelets 298 BUN 11.3 and creatinine 0.4 and calcium 8.1. Patient is on Ringer's lactate at 100 cc/h. Patient is tolerating oral diet. Continued on antibiotics in the form of IV ceftriaxone. Current medications reviewed. Objective - Vital Signs Vital signs: Vital Signs Temp 97.9 F 10/13/24 13:55 Pulse 79 10/13/24 16:52 Resp 19 10/13/24 13:55 BP 110/68 10/13/24 13:55 Pulse Ox 95 10/13/24 16:44 FiO2 40 10/10/24 18:00 Intake & Output 10/13/24 10/13/24 10/14/24 06:59 18:59 06:59 Intake Total 2270 Output Total 2150 2300 Balance 120 -2300 Intake: Oral 2270 Output: Urine 2150 2300 Other: Voiding Method Urinal # Bowel Movements 1 - Exam PHYSICAL EXAMINATION: Patient is lying in the bed,, no acute distress, awake alert and oriented. HEENT: Normocephalic. Neck is supple. Pupils reactive. Nostrils clear. Oral cavity is moist. Neck reveals no JVD, carotid bruits, or thyromegaly. CHEST EXAMINATION: Trachea is central. Symmetrical expansion. Clear to auscultation. No wheezing. Nonlabored breathing. CARDIAC: Normal S1, S2 with no gallops. No murmurs ABDOMEN: Soft. Bowel sounds normal. No organomegaly. No abdominal bruits. Extremities: reveal no edema. No clubbing or cyanosis Neurologically awake, alert, oriented x3, able to move all extremities. No gross focal deficits noted Skin: No rash or skin lesions. Psychiatric: Coperative. Nonsuicidal Musculoskeletal: No joint swelling or deformity. - Labs CBC & Chem 7: 10/13/24 05:12 10/13/24 05:12 Labs: Abnormal Lab Results - Last 24 Hours (Table) 10/13/24 10/13/24 Range/Units 05:12 05:12 RBC 4.31 L (4.40-5.60) X 10*6/uL Hgb 12.4 L (13.0-17.0) g/dL Hct 37.4 L (39.6-50.0) % Neutrophils # (Manual) 7.77 H (1.80-7.70) X 10*3/uL Lymphocytes # (Manual) 0.69 L (0.90-5.00) X 10*3/uL Basophils # (Manual) 0.20 H (0.00-0.10) X 10*3/uL Carbon Dioxide 21.3 L (21.6-31.8) mmol/L Creatinine 0.4 L (0.6-1.5) mg/dL BUN/Creatinine Ratio 28.25 H (12.00-20.00) Ratio Calcium 8.1 L (8.7-10.3) mg/dL Assessment and Plan Assessment: 1. Acute hypoxic respiratory failure related to bilateral pneumonia - Patient was initially placed on O2 per nasal cannula and was later transitioned to BiPAP due to desaturation. Currently on 6L-->4 L via nasal cannula. -Continue to titrate down oxygen to room air. 2. Bilateral multifocal pneumonia; possible aspiration while getting MRI patient had an MRI, with general anesthesia and intubation on Thursday, at [facility]. He likely aspirated at that time. The patient presents to ER with bilateral pneumonia, right greater than left. Patient is on IV ceftriaxone.. Sputum cultures showed strep pneumonia and Marta. Leukocytosis resolved. ID is on board. Patient will need IV antibiotics at discharge as per ID. 3. 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 4. History of rheumatoid arthritis 5. History of tobacco use DVT prophylaxis; Lovenox subcu CODE STATUS; full code
[2024-10-13] MEDS: LACTATED RINGERS 1,000 ML IV SCH (22:43)
[2024-10-14 07:57] VITALS: RESP 17
[2024-10-14 08:15] LABS: Blood Urea Nitrogen 9.6 mg/dL (9.0-27.0); Calcium 8.2 mg/dL (8.7-10.3); Carbon Dioxide 23.5 mmol/L (21.6-31.8); Chloride 102 mmol/L (96-109); Glucose 97 mg/dL (70-110); Potassium 4.3 mmol/L (3.5-5.5); Sodium 137 mmol/L (135-145)
[2024-10-14 09:54] LABS: Basophils # (A) 0.04 X 10*3/uL (0.00-0.10); Basophils % (A) 0.4 %; Eosinophils # (A) 0.19 X 10*3/uL (0.04-0.35); Eosinophils % (A) 2.1 %; HCT 37.5 % (39.6-50.0); HGB 12.4 g/dL (13.0-17.0); Lymphocytes % (A) 13.4 %; MCH 28.6 pg (27.0-32.0); MCHC 33.1 g/dL (32.0-37.0); MCV 86.4 FL (80.0-97.0); Mean Platelet Volume 9.8 FL (9.5-12.2); Monocytes # (A) 1.11 X 10*3/uL (0.20-1.00); Monocytes % (A) 12.4 %; NRBC Per 100 WBC 0 X 10*3/uL (0.00-0.01); Neutrophils # (A) 5.96 X 10*3/uL (1.80-7.70); Neutrophils % (A) 66.7 %; Platelet Count 334 X 10*3/uL (140-440); RBC 4.34 X 10*6/uL (4.40-5.60); RDW 13.1 % (11.5-14.5); WBC 8.95 X 10*3/uL (4.50-10.00)
[2024-10-14 14:20] VITALS: BMI 24.7
[2024-10-14 14:34] VITALS: BP 124/83; TEMP 98.2
--- NOTE | 2024-10-14 15:24 | P.PN ---
Subjective Progress Note Date: 10/14/24 Principal diagnosis: Reason for follow-up is sepsis and pneumonia Patient is a 38-year-old male with a past medical history significant for rheumatoid arthritis spinal cord tumor history of cholecystectomy presenting to the hospital for evaluation of fever with rigors and chills patient has been diagnosed with sepsis secondary to pneumonia. On today's evaluation that is 10/14/2024, Patient is afebrile this morning patient denies having any chest pain breathing has improved cough is decreased in intensity no nausea vomiting no abdominal pain no diarrhea. Patient did have white count of 8.95 creatinine 0.4 Objective - Vital Signs Vital signs: Vital Signs Temp 97.7 F 10/14/24 07:36 Pulse 84 10/14/24 12:44 Resp 17 10/14/24 07:36 BP 110/64 10/14/24 07:36 Pulse Ox 94 L 10/14/24 12:43 FiO2 21 10/14/24 12:40 Intake & Output 10/13/24 10/14/24 10/14/24 18:59 06:59 18:59 Intake Total 780 240 Output Total 2300 Balance -2300 780 240 Intake: Oral 780 240 Output: Urine 2300 Other: Voiding Method Urinal # Voids 3 # Bowel Movements 1 - Exam GENERAL DESCRIPTION: Middle-age male lying in bed in no distress RESPIRATORY SYSTEM: Unlabored breathing , decreased breath sounds at bases HEART: S1 S2 regular rate and rhythm , ABDOMEN: Soft , no tenderness EXTREMITIES: No edema feet - Labs CBC & Chem 7: 10/14/24 04:31 10/14/24 04:31 Labs: Abnormal Lab Results - Last 24 Hours (Table) 10/14/24 10/14/24 Range/Units 04:31 04:31 RBC 4.34 L (4.40-5.60) X 10*6/uL Hgb 12.4 L (13.0-17.0) g/dL Hct 37.5 L (39.6-50.0) % Immature Gran # 0.45 H (0.00-0.04) X 10*3/uL Monocytes # 1.11 H (0.20-1.00) X 10*3/uL Creatinine 0.4 L (0.6-1.5) mg/dL BUN/Creatinine Ratio 24.00 H (12.00-20.00) Ratio Calcium 8.2 L (8.7-10.3) mg/dL Microbiology - Last 24 Hours (Table) 10/08/24 12:08 Blood Culture - Final Blood Assessment and Plan (1) Sepsis Current Visit: Yes Status: Acute Code(s): A41.9 - SEPSIS, UNSPECIFIED ORGANISM SNOMED Code(s): 30435155 (2) Pneumonia Current Visit: Yes Status: Acute Code(s): J18.9 - PNEUMONIA, UNSPECIFIED ORGANISM SNOMED Code(s): 454389782 Plan: 1patient presented hospital with sepsis in this patient who did have fever tachycardia hypotension meeting ready for SIRS/sepsis source is right lower lobe pneumonia likely community-acquired as symptoms started with rigors and chills followed by cough and then vomiting 2blood cultures currently pending sputum is growing strep pneumo which is a sensitive pathogen 3patient did have rib x-ray concerning for right fifth rib nondisplaced fracture as well as extensive pneumonia 4patient is afebrile white count is normalized 5midline has been ordered advised to continue with Rocephin 2 g daily on discharge to finish his 2-week course of therapy and close outpatient follow-up Dictation was produced using [employer] dictation software. please excuse any grammatical, word or spelling errors. Time with Patient: Less than 30
[2024-10-14 16:12] VITALS: PULSE 75
--- NOTE | 2024-10-14 17:16 | P.PN ---
Subjective Progress Note Date: 10/14/24 38-year-old male who was seen in the emergency department, October 08, for fever. The patient has a history of a malignant spinal cord tumor, and had a resection of the tumor, done in June 2024, at the [facility]. The patient was back at [facility], on Thursday, for an MRI of the spine, which was done under general anesthesia, with intubation. The patient likely aspirated at that time, and presents to the emergency department, with pneumonia. The patient came in complaining of fever, and pain in the right lower chest right upper abdominal area. In addition, the patient did have some nausea, and vomiting. Current labs include a white count 11.3, hemoglobin 11.8, hematocrit 35, and a platelet count of 166,000. The patient had a blood gas, showing a PO2 of 87, PCO2 of 39, pH of 7.43. That was on 100%. Sodium 134, potassium 4.4, chlorides 104, CO2 25, BUN 19, creatinine 0.47. Lactic acid was initially 2.6, repeat was 2.1. Calcium 7.7. Magnesium 2.4. Gallbladder ultrasound was negative. Chest x-ray showed some right perihilar fullness. CT scan of the chest abdomen and pelvis, showed significant consolidation of the superior segment of the right lower lobe, consistent with pneumonia. Repeat chest x-ray, showed bilateral airspace disease. Chest x-ray dated October 09, again shows bilateral airspace disease, right greater than left. There is also evidence of air bronchograms. The patient is currently on azithromycin and Rocephin per infectious diseases. In addition, the patient is on BiPAP, with settings of 15/5, 60%, and LR at 130 cc an hour. On 10/10/2024, patient is being seen for a follow-up. 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 Following that, the patient had a MRI of the brain that required intubation and mechanical ventilation. This was done also at [facility]. Apparently, he has some uncontrollable body jerks and claustrophobia that necessitated intubation mechanical ventilation. The patient presented to us with multifocal pneumonia. The patient was initially on Airvo and later on on a BiPAP for respiratory support and the patient this morning was taken off the BiPAP and the patient is currently on 5 L of O2 nasal cannula. Earlier today, he was on a BiPAP pressure of 15/5 with an FiO2 of 40%. Chest x-ray shows some improvement in the right lower lobe pulmonary consolidation. He continues to have multifocal patchy opacities. I am going to cover the patient with IV Zosyn as there is a concern for an aspiration pneumonia versus hospital- acquired pneumonia. Sputum cultures are still pending for now. White cell count of 13.2, hemoglobin 11 and a platelet count of 166. BUN is 15 with a creatinine of 0.4 and a sodium levels at 136. Slightly tachypneic. Much more comfortable compared to yesterday. Lactated Ringer running at 130 cc an hour. Able to move all of her extremities without any limitation. The patient is on Lovenox 40 mg subcu for DVT prophylaxis. Awake and alert and communicating. Still coughing thick brownish mucus. On 10/11/2024, the patient is being seen for a follow-up. Overnight, the patient was on a BiPAP and this morning he was dyspneic and oxygen and is on 5 L of oxygen by nasal cannula. He remains on lactated Ringer at 100 cc an hour. He has extensive pneumonia to follow-up chest x-ray from today is showing similar multifocal airspace disease with significant consolidation of the right lung. The patient remains on IV Zosyn. Coughing out some bloody mucus and the culture is positive for Streptococcus and Marta albicans. No other new complaints otherwise for now. The white cell count is at 13.3 with a hemoglobin 10.7 and a platelet count of 180. Sodium is at 137, potassium is at 3.9, BUN 13 with a creatinine of 0.4. Calcium level is at 8.2. No other significant events overnight. Awake and alert and communicating. Remains on Lovenox for DVT prophylaxis. 10/12/2024, the patient remains on IV antibiotics. The patient remains on IV Rocephin as the patient sputum sample was positive for streptococcal pneumonia. He is doing well. No pleurisy. No hemoptysis. He is currently on 6 L oxygen nasal cannula with a pulse ox of 97%. The white cell count is at 10 with a hemoglobin of 11 and a platelet count of 222. Electrolytes are all within normal limits with a BUN of 12 with a creatinine of 0.4. No pleurisy. No hemoptysis. No other significant events and the patient is feeling better. A follow-up chest x-ray is to be obtained for tomorrow. On 10/13/2024, the patient is stable on 4 L of oxygen by nasal cannula with a pulse ox of 96 to 97%. Repeat chest x-ray shows slight improvement in extensive right lung consolidation. Remains on IV Rocephin. No hemoptysis. No pleurisy. Blood work shows a white cell count of 9.8 with a hemoglobin 12.4 and platelet count of 298. Electrolytes are normal, BUN is 11 with a creatinine of 0.4. No other significant events overnight. He is slow to progress however he is reporting daily improvement. On today's evaluation of 10/14/2024, patient is feeling well. No specific complaints. Oxygenation is also improving. The patient is able to maintain his saturation above 90% on room air oxygen. His current pulse ox 95%. No chest pain. No pleurisy. No hemoptysis. White cell count is down to 8.9. Hemoglobin 12.4. Electrolytes are all within normal limits. The patient remains on IV Rocephin. Sputum sample was positive for streptococcal pneumonia. Objective - Vital Signs Vital signs: Vital Signs Temp 98.2 F 10/14/24 14:32 Pulse 75 10/14/24 16:12 Resp 17 10/14/24 14:32 BP 124/83 10/14/24 14:32 Pulse Ox 95 10/14/24 14:32 FiO2 21 10/14/24 12:40 Intake & Output 10/13/24 10/14/24 10/14/24 18:59 06:59 18:59 Intake Total 780 480 Output Total 2300 Balance -2300 780 480 Weight 87.4 kg Intake: Oral 780 480 Output: Urine 2300 Other: Voiding Method Urinal # Voids 3 # Bowel Movements 1 - Exam The patient appeared well nourished and normally developed. Vital signs as documented. The patient is currently on room air oxygen. No respiratory distress and the patient is calm and comfortable Head exam is unremarkable. No scleral icterus or corneal arcus noted. The cervical posterior surgical wound site is dry clean and intact. Neck is without jugular venous distension, thyromegaly, or carotid bruits. Carotid upstrokes are brisk bilaterally. Lungs are clear to auscultation and percussion. Crackles and bronchial breath sound specially on the right compared to the left. Cardiac exam reveals the PMI to be normally sized and situated. Rhythm is regular. First and second heart sounds normal. No murmurs, rubs or gallops. Abdominal exam reveals normal bowel sounds, no masses, no organomegaly and no aortic enlargement. Extremities are nonedematous and both femoral and pedal pulses are normal. Examination of the skin revealed no evidence of significant rashes, suspicious appearing nevi or other concerning lesions. Neurologically, the patient is awake and alert and the patient does not have any focal neurological deficit. Cranial nerves are essentially intact. - Labs CBC & Chem 7: 10/14/24 04:31 10/14/24 04:31 Labs: Abnormal Lab Results - Last 24 Hours (Table) 10/14/24 10/14/24 Range/Units 04:31 04:31 RBC 4.34 L (4.40-5.60) X 10*6/uL Hgb 12.4 L (13.0-17.0) g/dL Hct 37.5 L (39.6-50.0) % Immature Gran # 0.45 H (0.00-0.04) X 10*3/uL Monocytes # 1.11 H (0.20-1.00) X 10*3/uL Creatinine 0.4 L (0.6-1.5) mg/dL BUN/Creatinine Ratio 24.00 H (12.00-20.00) Ratio Calcium 8.2 L (8.7-10.3) mg/dL Microbiology - Last 24 Hours (Table) 10/08/24 12:08 Blood Culture - Final Blood Assessment and Plan Plan: Acute hypoxemic respiratory failure, improved and the patient oxygenation has normalized and the patient is currently on room air oxygen Bilateral multifocal pneumonia, likely pneumococcal. The sputum Gram stain and culture showed Streptococcus pneumonia and Marta the patient remains on IV Rocephin Spinal cord/cervical leptomeningeal glioma, surgically resected [facility] back in June 2024 Shortness of breath secondary to above, improving History of rheumatoid arthritis. Prior history of tobacco use. Plan: Oxygenation improved and the patient is currently on room air Sputum sample showing streptococcal pneumonia Patient can be switched to oral antibiotics and the patient can be discharged home to be followed up on outpatient basis and the patient will need a follow-up chest x-ray within the next 7 to 10 days. Incentive spirometry and pulmonary toileting Oxygenation is improved and the patient is able to maintain oxygen saturation above 90% on room air oxygen. Follow-up on outpatient basis.
--- NOTE | 2024-10-18 10:04 | CDI ---
Documentation Clarification Form Date: 10/18/2024 09:50:17 AM From: Shital Higgins Phone: Admit Date: 10/08/2024 11:51:00 AM Patient Name: Saad Woo Visit Number: [id number] Discharge Date: 10/14/2024 04:17:00 PM ATTENTION: The Clinical Documentation Specialists (CDI) and [facility] Coding Staff appreciate your assistance in clarifying documentation. Please respond to the clarification below the line at the bottom and electronically sign. The CDI & [facility] Coding staff will review the response and follow-up if needed. Please note: Queries are made part of the Legal Health Record. If you have any questions, please contact the author of this message via ITS. Doctor/Provider: Kylah Castro Sepsis is documented per select Progress Notes which may lack sufficient clinical evidence/support in the medical record. Additional clarification is requested. History/Risk Factors: 38yo M, AHRF, PNA w step and Marta, Hx spinal glioma, RA, former tobacco Clinical Indicators: WBC: 8.5- 11.31 Lactic acid: 1.6-2.6 Blood cultures: currentlypendingsputum is growingstreppneumo with sensitivities pending Vitals signs: 10/08/2504/03/2505 09:18 10:03 11:12 T 100 F 102.0 F 99.2 F ND 124 111 107 RR 18 20 18 BP95/56 103/65 103/56 O2 Sat 95 97 97 Treatment: patient remains on IV Rocephin After work up and study, please clarify which diagnosis is most appropriate? [ ] Sepsis ruled out [ @@@ ] Sepsis treated prophylactically [ ] Sepsis is a valid diagnosis as evidence by the following: (Please add rationale): [ ] Non-Infectious SIRS due to (please specify) [ ] Non-infectious SIRS due to with organ dysfunction as evidenced by [list organ dysfunction] [ ] Other, please specify [ ] Unable to determine SIRS Criteria: 2 or more of the following may indicate SIRS Temperature < 96.8F (36C) or > 101.0F (38.3C) Heart Rate > 90 bpm Respiratory Rate > 20 breaths/min or PaCO2 < 32 mmHg White Blood Cell Count > 12,000 or < 4,000 cells/mm3 or > 10% bands (Template Last Reviewed: June 2023) MTDD
== END 2024-10-14 16:17 | disposition home health service (06) | DRG 193 ==
LOC: EC 09:16 → 4SSUR 11:51 → 3SCARD 14:48 → 2SICU 21:02 → 4SSUR 10-11 18:28
PROVIDERS: ADMIT Internal Medicine; ATTEND Internal Medicine
PROC: 05HC33Z Insertion of Infusion Device into Left Basilic Vein, Percutaneous Approach (ICD-10-PCS; principal; 2024-10-14 12:00)
DX: J15.4 Pneumonia due to other streptococci (principal); J96.01 Acute respiratory failure with hypoxia; B37.89 Other sites of candidiasis; S22.31XA Fracture of one rib, right side, initial encounter for closed fracture; M06.9 Rheumatoid arthritis, unspecified; R04.2 Hemoptysis; J69.0 Pneumonitis due to inhalation of food and vomit; F40.240 Claustrophobia; Z87.891 Personal history of nicotine dependence; Z79.899 Other long term (current) drug therapy; Z90.49 Acquired absence of other specified parts of digestive tract; Z85.841 Personal history of malignant neoplasm of brain
CPT/HCPCS: 36410; 36415; 36600; 71045; 71046; 71260; 74177; 76705; 76937; 80048; 80053; 81003; 82550; 82805; 83605; 83735; 84145; 84484; 85025; 85027; 85379; 85610; 85730; 87040; 87070; 87077; 87186; 87205; 87449; 87636; 93005; 94640; 94660; 94760; 96361; 96365; 96366; 96367; 96375; 96376; 99291

== ENCOUNTER 2024-10-15 13:30 | Inpatient (IN) | payer BC ==
--- NOTE | 2024-10-15 14:16 | ED ---
General Adult HPI - General Source: patient, RN notes reviewed Mode of arrival: EMS Limitations: no limitations <Shaista Mccord - Last Filed: 10/15/24 16:38> <Jeovanny Fernández - Last Filed: 10/15/24 17:51> - General Chief complaint: Shortness of Breath Stated complaint: SOB Time Seen by Provider: 10/15/24 13:45 - History of Present Illness Initial comments: 38-year-old male with history of spinal cord tumor presenting to the emergency department vis EMS for complaints of difficulty in breathing. Patient was d ischarged yesterday (after being admitted for pneumonia with sepsis) and was scheduled at home care in place. At home nurse presented to patient's house to administer IV antibiotics and discovered oxygen saturations in the 60s with a dusky pallor appearance to the patient. Currently patient states that he is feeling better with supplemental oxygen. Is denying cough and abdominal pain. receiving IV Rocephin via PICC line at home. (Shaista Mccord) - Related Data Home Medications Medication Instructions Recorded Confirmed Multivitamins, Thera [Multivitamin 1 tab PO DAILY 10/08/24 10/15/24 (formulary)] Sertraline [Zoloft] 50 mg PO DAILY 10/08/24 10/15/24 Previous Rx's Medication Instructions Recorded cefTRIAXone [Rocephin] 2,000 mg IVP Q24HR #8 each 10/14/24 Allergies Allergy/AdvReac Type Severity Reaction Status Date / Time tramadol AdvReac seizures Verified 10/15/24 17:35 fabric softner Allergy Rash/Hives Uncoded 10/08/24 12:44 Review of Systems ROS Other: All systems not noted in ROS Statement are negative. <Shaista Mccord - Last Filed: 10/15/24 16:38> ROS Other: All systems not noted in ROS Statement are negative. <Jeovanny Fernández - Last Filed: 10/15/24 17:51> ROS Statement: Those systems with pertinent positive or pertinent negative responses have been documented in the HPI. Past Medical History Past Medical History: Rheumatoid Arthritis (RA) Additional Past Medical History / Comment(s): spinal cord tumor, fracure rib History of Any Multi-Drug Resistant Organisms: None Reported Past Surgical History: Orthopedic Surgery Additional Past Surgical History / Comment(s): tumor removed 2024 Past Anesthesia/Blood Transfusion Reactions: No Reported Reaction Past Psychological History: No Psychological Hx Reported Smoking Status: Former smoker Past Alcohol Use History: None Reported Past Drug Use History: None Reported - Past Family History Father Family Medical History: Cancer Additional Family Medical History / Comment(s): colon cancer Mother Family Medical History: Cancer Additional Family Medical History / Comment(s): breast cancer <Megan Mccordoe - Last Filed: 10/15/24 16:38> General Exam Limitations: no limitations General appearance: alert, in no apparent distress Neck exam: Present: normal inspection. Absent: tenderness, meningismus, lymphadenopathy Respiratory exam: Present: wheezes, decreased breath sounds. Absent: normal lung sounds bilaterally, respiratory distress Cardiovascular Exam: Present: regular rate, normal rhythm, normal heart sounds. Absent: systolic murmur, diastolic murmur, rubs, gallop, clicks GI/Abdominal exam: Present: soft, normal bowel sounds. Absent: distended, tenderness, guarding, rebound, rigid Extremities exam: Present: normal inspection, full ROM, normal capillary refill. Absent: tenderness, pedal edema, joint swelling, calf tenderness Back exam: Present: normal inspection Skin exam: Present: warm, dry, intact, normal color. Absent: rash <Shaista Mccord - Last Filed: 10/15/24 16:38> - General Exam Comments Initial Comments: Visual Physical Exam Vital signs reviewed General: Well-appearing, nontoxic, no acute distress. Head: Normocephalic, atraumatic Eyes: PERRLA, EOMI ENT: Airway patent Chest: Nonlabored breathing Skin: No visual rash, normal skin tone Neuro: Alert and oriented 3 Musculoskeletal: No gross abnormalities (Stieler,Shaista) Course Vital Signs 10/15/24 10/15/24 10/15/24 13:33 16:14 16:28 Temperature 98.1 F Pulse Rate 96 90 94 Respiratory 20 Rate Blood Pressure 109/61 O2 Sat by Pulse 93 L Oximetry Medical Decision Making - Lab Data Result diagrams: 10/15/24 15:20 10/15/24 15:20 <Megan Mccordoe - Last Filed: 10/15/24 16:38> - Lab Data Result diagrams: 10/15/24 15:20 10/15/24 15:20 <Jeovanny Fernández N - Last Filed: 10/15/24 17:51> - Medical Decision Making Was pt. sent in by a medical professional or institution ([facility]emayor, FIELD AGRONOMIST, urgent care, hospital, or snf...) When possible be specific @ -[No] Did you speak to anyone other than the patient for history (EMS, parent, family, police, friend...)? What history was obtained from this source @ -[No] Did you review nursing and triage notes (agree or disagree)? Why? @ -[I reviewed and agree with nursing and triage notes] Were old charts reviewed (outside hosp., previous admission, EMS record, old EKG, old radiological studies, urgent care reports/EKG's, snf records)? Report findings @ -Reviewed ER visit note from 10/08/2024 where he presented to emergency room with concerns for fever and right rib/upper abdominal discomfort for minus admitted for IV antibiotics due to CT scan concerning for pneumonia most likely secondary to aspiration pneumonia. Patient was discharged on 10/14/2024 with [address] care in place. Patient had MRI completed on 10/07/2024 where he was intubated due to prolonged time for further evaluation of previous spinal tumor. Differential Diagnosis (chest pain, altered mental status, abdominal pain women, abdominal pain men, vaginal bleeding, weakness, fever, dyspnea, syncope, headache, dizziness, GI bleed, back pain, seizure, CVA, palpatations, mental health, musculoskeletal)? @ -Differential Dyspnea: Coronary syndrome, arrhythmia, tamponade, asthma, COPD, pulmonary embolism, pneumonia, pneumothorax, pulmonary effusion, anaphylaxis, diabetic ketoacidosis, flailed chest, pulmonary contusion, diaphragmatic rupture, anemia, neuromuscular, this is not meant to be an all-inclusive list. EKG interpreted by me (3pts min.). @ -Completed at 1545 sinus rhythm with a ventricular rate of 76, ME interval 153, QRS 97, QT 408, QTc 439. There is noted T wave inversions in lead I X-rays interpreted by me (1pt min.). @ -chest xray reveals Interstitial patchy opacities suspicious for multifocal pneumonia that lead III and Q waves in leads I. is stable to slightly improving from prior study on 10/13/2024 CT interpreted by me (1pt min.). @ -[None done] U/S interpreted by me (1pt. min.). @ -[None done] What testing was considered but not performed or refused? (CT, X-rays, U/S, labs)? Why? @ -[None] What meds were considered but not given or refused? Why? @ -[None] Did you discuss the management of the patient with other professionals (professionals i.e. , PA, FIELD AGRONOMIST, lab, RT, psych nurse, clinical social work therapist, commercial counsel, teacher, youth probation officer, case management assistant)? Give summary @ -[No] Was smoking cessation discussed for >3mins.? @ -[No] Was critical care preformed (if so, how long)? @ -[No] Were there social determinants of health that impacted care today? How? (Homelessness, low income, unemployed, alcoholism, drug addiction, trans portation, low edu. Level, literacy, decrease access to med. care, care home, rehab)? @ -[No] Was there de-escalation of care discussed even if they declined (Discuss DNR or withdrawal of care, Hospice)? DNR status @ -[No] What co-morbidities impacted this encounter? (DM, HTN, Smoking, COPD, CAD, Cancer, CVA, ARF, Chemo, Hep., AIDS, mental health diagnosis, sleep apnea, morbid obesity)? @ -[None] Was patient admitted / discharged? Hospital course, mention meds given and route, prescriptions, significant lab abnormalities, going to OR and other pertinent info. @ -38-year-old male presenting to the emergency department for complaint of shortness of breath. On arrival to the ER patient has a low oxygen saturation of 93% on room air and is provided with supplemental 2 L O2 vai nasal cannula. Soft blood pressure at 109/61. On my evaluation of the patient he is oxygenating well with supplemental oxygen and is in no signs of respiratory distress. There are decreased breath sounds bilaterally on physical examination. Patient's EKG does show changes as compared to previous with T wa ve inversions and Q waves. Laboratory testing reveals leukocytosis of 12 with left shift neutrophils of 9.89. Patient has an elevated D-dimer of 1.73 as compared to previous level of 0.46 on 10/08/2024. Patient's chest x-ray reveals interstitial patchy opacities suspicious for multifocal pneumonia slightly improving from previous. Patient will be evaluated via CTA of the chest due to dyspnea and elevated d-dimer level. Patient is signed out to my attending, Dr. Fernández, pending CTA results and disposition. Undiagnosed new problem with uncertain prognosis? @ -[No] Drug Therapy requiring intensive monitoring for toxicity (Heparin, Nitro, Insulin, Cardizem)? @ -[No] Were any procedures done? @ -[No] Diagnosis/symptom? @ -[default] Acute, or Chronic, or Acute on Chronic? @ -[default] Uncomplicated (without systemic symptoms) or Complicated (systemic symptoms)? @ -[default] Side effects of treatment? @ -[No] Exacerbation, Progression, or Severe Exacerbation? @ -[No] Poses a threat to life or bodily function? How? (Chest pain, USA, MT, pneumonia, PE, COPD, DKA, ARF, appy, cholecystitis, CVA, Diverticulitis, Homicidal, Suicidal, threat to staff... and all critical care pts) @ -[No] (Shaista Mccord) 38-year-old male with hypoxia, recent diagnosis of pneumonia. Patient will be admitted for treatment of a multifocal pneumonia seen on x-ray and CT. He has not increased white blood cell count. D-dimer was elevated and CT was limited due to motion artifact but did not show central pulmonary embolism. Case discussed with EM. (Jeovanny Fernández) - Lab Data Lab Results 10/15/24 10/15/24 10/15/24 Range/Units 15:20 15:20 15:20 WBC 12.39 H (4.50-10.00) 10*3/uL RBC 4.80 (4.40-5.60) 10*6/uL Hgb 14.3 D (13.0-17.0) g/dL Hct 41.4 (39.6-50.0) % MCV 86.3 (80.0-97.0) fL MCH 29.8 (27.0-32.0) pg MCHC 34.5 (32.0-37.0) g/dL Plt Count 408 D (140-440) 10*3/uL MPV 9.4 L (9.5-12.2) fL Immature Gran % (Auto) 2.5 % Neutrophils % 79.8 % Lymphocytes % 10.0 % Monocytes % 6.3 % Eosinophils % 0.9 % Basophils % 0.5 % Immature Gran # 0.31 H (0.00-0.04) 10*3/uL Neutrophils # 9.89 H (1.80-7.70) 10*3/uL Lymphocytes # 1.24 (0.90-5.00) 10*3/uL Monocytes # 0.78 (0.20-1.00) 10*3/uL Eosinophils # 0.11 (0.04-0.35) 10*3/uL Basophils # 0.06 (0.00-0.10) 10*3/uL PT 10.8 (10.0-12.5) sec INR 1.0 (<1.2) APTT 24.7 (22.0-30.0) sec D-Dimer 1.73 H (<0.60) mg/L FEU Sodium 137 (137-145) mmol/L Potassium 4.8 (3.5-5.1) mmol/L Chloride 99 (98-107) mmol/L Carbon Dioxide 27 (22-30) mmol/L Anion Gap 11 mmol/L BUN 18 (9-20) mg/dL Creatinine 0.53 L (0.66-1.25) mg/dL Est GFR (CKD-EPI)AfAm >90 (>60 ml/min/1.73 sqM) Est GFR (CKD-EPI)NonAf >90 (>60 ml/min/1.73 sqM) Glucose 93 (74-99) mg/dL Plasma Lactic Acid Grady (0.7-2.0) mmol/L Calcium 8.8 (8.4-10.2) mg/dL Magnesium 2.0 (1.6-2.3) mg/dL Total Bilirubin 0.5 (0.2-1.3) mg/dL AST 44 (17-59) U/L ALT 46 (4-49) U/L Alkaline Phosphatase 96 (38-126) U/L Troponin I (0.000-0.034) ng/mL Total Protein 7.1 (6.3-8.2) g/dL Albumin 3.8 (3.5-5.0) g/dL Influenza Type A (PCR) (Not Detectd) Influenza Type B (PCR) (Not Detectd) RSV (PCR) (Not Detectd) SARS-CoV-2 (PCR) (Not Detectd) 10/15/24 10/15/24 10/15/24 Range/Units 15:20 15:20 15:20 WBC (4.50-10.00) 10*3/uL RBC (4.40-5.60) 10*6/uL Hgb (13.0-17.0) g/dL Hct (39.6-50.0) % MCV (80.0-97.0) fL MCH (27.0-32.0) pg MCHC (32.0-37.0) g/dL Plt Count (140-440) 10*3/uL MPV (9.5-12.2) fL Immature Gran % (Auto) % Neutrophils % % Lymphocytes % % Monocytes % % Eosinophils % % Basophils % % Immature Gran # (0.00-0.04) 10*3/uL Neutrophils # (1.80-7.70) 10*3/uL Lymphocytes # (0.90-5.00) 10*3/uL Monocytes # (0.20-1.00) 10*3/uL Eosinophils # (0.04-0.35) 10*3/uL Basophils # (0.00-0.10) 10*3/uL PT (10.0-12.5) sec INR (<1.2) APTT (22.0-30.0) sec D-Dimer (<0.60) mg/L FEU Sodium (137-145) mmol/L Potassium (3.5-5.1) mmol/L Chloride (98-107) mmol/L Carbon Dioxide (22-30) mmol/L Anion Gap mmol/L BUN (9-20) mg/dL Creatinine (0.66-1.25) mg/dL Est GFR (CKD-EPI)AfAm (>60 ml/min/1.73 sqM) Est GFR (CKD-EPI)NonAf (>60 ml/min/1.73 sqM) Glucose (74-99) mg/dL Plasma Lactic Acid Grady 0.8 (0.7-2.0) mmol/L Calcium (8.4-10.2) mg/dL Magnesium (1.6-2.3) mg/dL Total Bilirubin (0.2-1.3) mg/dL AST (17-59) U/L ALT (4-49) U/L Alkaline Phosphatase (38-126) U/L Troponin I <0.012 (0.000-0.034) ng/mL Total Protein (6.3-8.2) g/dL Albumin (3.5-5.0) g/dL Influenza Type A (PCR) Not Detected (Not Detectd) Influenza Type B (PCR) Not Detected (Not Detectd) RSV (PCR) Not Detected (Not Detectd) SARS-CoV-2 (PCR) Not Detected (Not Detectd) Disposition <Shaista Mccord - Last Filed: 10/15/24 16:38> Is patient prescribed a controlled substance at d/c from ED?: No Time of Disposition: 17:51 <Jeovanny Fernández - Last Filed: 10/15/24 17:51> Clinical Impression: Pneumonia Disposition: ADMITTED IP TO THIS HOSP Condition: Stable Referrals: Shon Aggarwal MD [Primary Care Provider] - 1-2 days
--- NOTE | 2024-10-15 15:03 | XR ---
EXAMINATION TYPE: XR chest 2V DATE OF EXAM: 10/15/2024 2:42 PM COMPARISON: Multiple prior chest radiograph, most recently dated 10/13/2024. CLINICAL INDICATION: Male, 38 years old with history of difficulty breathing; [facility] TECHNIQUE: XR chest 2V Frontal and lateral views of the chest. FINDINGS: Cardiac silhouette is within normal limits for size. Patchy bilateral interstitial opacities, slightly improving from most recent prior study. Possible tr josefa left effusion. No sizable right-sided pleural effusion. No pneumothorax. No acute osseous abnormality. IMPRESSION: Bilateral interstitial patchy opacities suspicious for multifocal pneumonia, stable to slightly impro ving from prior study 10/13/2024. [facility], , 10/15/2024 3:01 PM
[2024-10-15 15:53] LABS: Basophils # (A) 0.06 10*3/uL (0.00-0.10); Basophils % (A) 0.5 %; Eosinophils # (A) 0.11 10*3/uL (0.04-0.35); Eosinophils % (A) 0.9 %; HCT 41.4 % (39.6-50.0); Lymphocytes # (A) 1.24 10*3/uL (0.90-5.00); MCH 29.8 pg (27.0-32.0); MCHC 34.5 g/dL (32.0-37.0); MCV 86.3 fL (80.0-97.0); Mean Platelet Volume 9.4 fL (9.5-12.2); Monocytes # (A) 0.78 10*3/uL (0.20-1.00); Monocytes % (A) 6.3 %; Neutrophils # (A) 9.89 10*3/uL (1.80-7.70); Neutrophils % (A) 79.8 %; RDW 12.9 % (11.5-14.5); WBC 12.39 10*3/uL (4.50-10.00)
[2024-10-15 16:02] LABS: HGB 14.3 g/dL (13.0-17.0); Platelet Count 408 10*3/uL (140-440)
[2024-10-15 16:04] LABS: ALT 46 U/L (4-49); AST 44 U/L (17-59); African American GFR (CKD) >90 (>60 ml/min/1.73 sqM); Albumin 3.8 g/dL (3.5-5.0); Alkaline Phosphatase 96 U/L (38-126); Anion Gap 11 mmol/L; Blood Urea Nitrogen 18 mg/dL (9-20); Calcium 8.8 mg/dL (8.4-10.2); Carbon Dioxide 27 mmol/L (22-30); Chloride 99 mmol/L (98-107); Glucose 93 mg/dL (74-99); Non-African American GFR(CKD) >90 (>60 ml/min/1.73 sqM); Potassium 4.8 mmol/L (3.5-5.1); Sodium 137 mmol/L (137-145); Total Bilirubin 0.5 mg/dL (0.2-1.3); Total Protein 7.1 g/dL (6.3-8.2)
[2024-10-15 16:08] LABS: Partial Thromboplastin Time 24.7 sec (22.0-30.0); Prothrombin Time 10.8 sec (10.0-12.5)
[2024-10-15] MEDS: IPRATROPIUM-ALBUTEROL 3 ML NEB INHALATION STA (16:15)
[2024-10-15 16:35] LABS: Influenza A Not Detected (Not Detectd); Influenza B Not Detected (Not Detectd); RSV Not Detected (Not Detectd)
--- NOTE | 2024-10-15 17:25 | CT ---
EXAMINATION TYPE: CT chest angio for PE DATE OF EXAM: 10/15/2024 5:09 PM COMPARISON: Recent CT chest study 10/08/2024. CLINICAL INDICATION: Male, 38 years old with history of dyspnea, elevated dimer; Dyspnea. TECHNIQUE/CONTRAST: CTA scan of the thorax is performed with IV Contrast, patient injected with 100 mL of Isovue 370, MIP images are created and reviewed these are created on a separate workstation.. CT DLP: 311.6 mGycm, Automated exposure control for dose reduction was used. FINDINGS: Pulmonary Artery: Nearly nondiagnostic examination for acute pulmonary embolism given suboptimal lizette ng of contrast bolus, streak and motion artifact. No definite central acute pulmonary embolism. Lungs/Pleura: Right lower lobe consolidation and worsening multifocal groundglass and consolidative o pacities throughout bilateral lungs. Possible trace right-sided pleural effusion. No pneumothorax. No left-sided pleural effusion. Airway: Large airways are patent. Heart: Cardiomegaly without significant pericardial effusion. Vasculature: No evidence of aortic aneu rysm. Mediastinum: Nonspecific moderate prominent subcarinal mediastinal lymph node, possibly reactive in e tiology. Mildly prominent right hilar lymph nodes also noted. Musculoskeletal: No acute osseous abnormalities Soft Tissues/lymph nodes: Unremarkable. Lower neck: No significant findings. Upper Abdomen: No significant findings. IMPRESSION: 1. Nearly nondiagnostic examination for violation of acute pulmonary embolus given technical factors described above. Within these limitations, no central pulmonary embolism identified. 2. Ground glass and consolidative opacities throughout the bilateral lungs felt to most likely refle ct multifocal pneumonia, worsening from recent study 10/08/2024. [facility], , 10/15/2024 5:23 PM
[2024-10-15] MEDS ORDERED: ACETAMINOPHEN TAB 325 MG TAB PO PRN (17:48)
[2024-10-15] MEDS ORDERED: NALOXONE 0.4 MG/ML 1 ML VIAL IV PRN (17:48)
[2024-10-15] MEDS: MORPHINE SULFATE 4 MG/ML SYRINGE IVP PRN (18:20)
[2024-10-15] MEDS: SODIUM CHLORIDE 0.9% 500 ML 500 ML IV ONE (18:20)
[2024-10-15] MEDS: SODIUM CHLORIDE 0.9% 1,000 ML IV SCH (18:20)
[2024-10-15] MEDS: AZITHROMYCIN 500 MG in SODIUM CHLORIDE 0.9% 250 ML IVPB STA (18:41)
[2024-10-15] MEDS: IPRATROPIUM-ALBUTEROL 3 ML NEB INHALATION SCH ×2 (19:22→19:46)
[2024-10-15] MEDS ORDERED: IPRATROPIUM-ALBUTEROL 3 ML NEB INHALATION PRN (19:29)
[2024-10-15] MEDS: LORazepam 1 MG/0.5 ML VIAL IV PRN (19:59)
[2024-10-16] MEDS: cefTRIAXone 2 GM in DEXTROSE 5% IN WATER 50 ML IVPB SCH (08:16)
[2024-10-16] MEDS: ENOXAPARIN 40 MG/0.4 ML SYRINGE SQ SCH (08:17)
[2024-10-16] MEDS: MULTIVITAMINS, THERA 1 EACH TAB PO SCH (10:41)
--- NOTE | 2024-10-16 10:51 | P.HPIM ---
History of Present Illness H&P Date: 10/16/24 History of present illness; patient is 38-year-old gentleman with past medical history significant for malignant spinal cord tumor who was recently discharged from the hospital after being treated for pneumonia, patient was discharged on IV Rocephin. Patient stated he was all right yesterday when he started noticing that he was getting short of breath. Shortness of breath was present on rest. Patient had a home care nurse that was visiting him for administration of IV antibiotics and found him to be low on oxygen, his oxygen saturation was in the 60s. There was no complaint of fever or chills. There was no complaint of cough. Patient denies any chest pain. There is no complaint of orthopnea or PND. Because of this shortness of breath, patient was told to come back to the ER. Initial lab work done in the ER showed WBC 12.39, hemoglobin 14.3, platelet count 408, D-dimer 1.73, sodium 131, potassium 4.8, BUN 18, creatinine 0.53, glucose 93, calcium 8.8, magnesium 2, troponin 0.012, Influenza A not detected Influenza B not detected RSV not detected COVID-19 not detected EKG done in the ER showed heart rate of 76, no ST segment elevation or depression seen, no T-wave inversions seen. Chest x-ray done in the ER showed bilateral interstitial patchy opacities suspicious for multifocal pneumonia. CT chest PE protocol done showed groundglass and consolidative opacities throughout the bilateral lungs felt to most likely reflect multifocal pneumonia Patient admitted to internal medicine service REVIEW OF SYSTEMS: CONSTITUTIONAL: No fever, no malaise, no fatigue. HEENT: No recent visual problems or hearing problems. Denied any sore throat. CARDIOVASCULAR: As mentioned above PULMONARY: As mentioned above GASTROINTESTINAL: No diarrhea, no nausea, no vomiting, no abdominal pain. NEUROLOGICAL: No headaches, no weakness, no numbness. HEMATOLOGICAL: Denies any bleeding or petechiae. GENITOURINARY: Denies any burning micturition, frequency, or urgency. MUSCULOSKELETAL/RHEUMATOLOGICAL: Denies any joint pain, swelling, or any muscle pain. ENDOCRINE: Denies any polyuria or polydipsia. The rest of the 14-point review of systems is negative. PHYSICAL EXAMINATION: GENERAL: The patient is alert and oriented x3, not in any acute distress. Well developed, well nourished. HEENT: Pupils are round and equally reacting to light. EOMI. No scleral icterus. No conjunctival pallor. Normocephalic, atraumatic. No pharyngeal erythema. No thyromegaly. CARDIOVASCULAR: S1 and S2 present. No murmurs, rubs, or gallops. PULMONARY: Chest is clear to auscultation, no wheezing or crackles. ABDOMEN: Soft, nontender, nondistended, normoactive bowel sounds. No palpable organomegaly. MUSCULOSKELETAL: No joint swelling or deformity. EXTREMITIES: No cyanosis, clubbing, or pedal edema. NEUROLOGICAL: Gross neurological examination did not reveal any focal deficits. SKIN: No rashes. Assessment and plan Acute hypoxemic respiratory failure Bacterial pneumonia, gram-positive gram-negative S/P MRI, October 07, requiring intubation, and general anesthesia. Resection of malignant spinal cord tumor, June 2024. History of rheumatoid arthritis. Prior history of tobacco use. Monitor vital signs Monitor CBC Monitor CMP Continue telemetry monitoring Ordered blood cultures Ordered sputum cultures Breathing treatments Ordered IV Rocephin Consult pulmonary Consult ID Labs and medication were reviewed.. Continue same treatment. Continue with symptomatic treatment. Resume home medication. Monitor labs and vitals. DVT and GI prophylaxis. Further recommendations as per clinical course of the patient Dictation was produced using [employer] dictation software. please excuse any grammatical, word or spelling errors. Past Medical History Past Medical History: Pneumonia (Pneumococcal right lung pneumonia), Rheumatoid Arthritis (RA) Additional Past Medical History / Comment(s): spinal cord tumor, leptomeningeal glioma, surgically resected [facility]. History of Any Multi-Drug Resistant Organisms: None Reported Past Surgical History: Orthopedic Surgery Additional Past Surgical History / Comment(s): tumor removed 2024 Past Anesthesia/Blood Transfusion Reactions: No Reported Reaction Past Psychological History: No Psychological Hx Reported Smoking Status: Former smoker Past Alcohol Use History: None Reported Past Drug Use History: None Reported - Past Family History Father Family Medical History: Cancer Additional Family Medical History / Comment(s): colon cancer Mother Family Medical History: Cancer Additional Family Medical History / Comment(s): breast cancer Medications and Allergies Home Medications Medication Instructions Recorded Confirmed Type Multivitamins, Thera [Multivitamin 1 tab PO DAILY 10/08/24 10/15/24 History (formulary)] Sertraline [Zoloft] 50 mg PO DAILY 10/08/24 10/15/24 History cefTRIAXone [Rocephin] 2,000 mg IVP Q24HR #8 each 10/14/24 10/15/24 Rx Allergies Allergy/AdvReac Type Severity Reaction Status Date / Time tramadol AdvReac seizures Verified 10/15/24 17:35 fabric softner Allergy Rash/Hives Uncoded 10/08/24 12:44 Physical Exam Vitals: Vital Signs Temp Pulse Resp BP Pulse Ox 10/16/24 08:19 77 10/16/24 08:12 74 16 10/16/24 06:32 97.8 F 83 18 112/71 98 10/15/24 19:43 104 H 20 99/63 100 10/15/24 19:32 104 H 10/15/24 19:25 105 H 10/15/24 17:59 98.9 F 103 H 20 117/76 92 L 10/15/24 16:28 94 10/15/24 16:14 90 10/15/24 13:33 98.1 F 96 20 109/61 93 L Results CBC & Chem 7: 10/15/24 15:20 10/15/24 15:20 Labs: Abnormal Lab Results - Last 24 Hours (Table) 10/15/24 10/15/24 10/15/24 Range/Units 15:20 15:20 15:20 WBC 12.39 H (4.50-10.00) 10*3/uL MPV 9.4 L (9.5-12.2) fL Immature Gran # 0.31 H (0.00-0.04) 10*3/uL Neutrophils # 9.89 H (1.80-7.70) 10*3/uL D-Dimer 1.73 H (<0.60) mg/L FEU Creatinine 0.53 L (0.66-1.25) mg/dL
--- NOTE | 2024-10-16 11:42 | P.CNPUL ---
History of Present Illness Consult date: 10/15/24 Reason for consult: dyspnea, hypoxemia, pneumonia History of present illness: This is a 38-year-old male patient with extensive right sided pneumococcal pneumonia. The patient was treated on an inpatient basis from 10/08/2024 and he was discharged on 10/14/2024 and he was supposed to complete IV Rocephin on outpatient basis. This was per IDs recommendation. Noted prior to his discharge, the patient's oxygenation improved and the patient was able to maintain oxygen levels of above 90% on room air. His white cell count was not elevated. His blood cultures were negative. Upon being evaluated by a visiting home nurse for IV antibiotic administration, the patient was found to be hypoxic and it was advised for him to come back to the hospital. No cough. No nausea. No emesis. He has a PICC line through which he is receiving IV antibiotics. Noted, his follow-up chest x-ray showed improving right lung pulmonary infiltrate. A CTA of the chest was also done in the emergency department that showed groundglass changes and some ongoing consolidation in the lung bases right more than left and upon comparing it to the earlier CAT scan done on 10/08/2024, dense consolidation in the right lung base was essentially improving. There was however some residual hazy infiltrate in the right lower lobe and somewhat in the right upper lobe. The patient is currently hemodynamically stable. Afebrile. Placed on 2 L of oxygen by nasal cannula and his current pulse ox is 99%. Noted during his last hospitalization, the patient required B iPAP therapy, Airvo his oxygenation was gradually weaned down to be discharged home on room air oxygen. The white cell count of 12.3, hemoglobin of 14, normal coagulation profile, normal electrolytes, normal renal function, viral screen is negative, troponins are negative. Review of Systems Constitutional: Reports fatigue Eyes: denies as per HPI, denies blurred vision, denies bulging eye, denies decreased vision, denies diplopia, denies discharge, denies dry eye, denies irritation, denies itching, denies pain, denies photophobia, denies loss of peripheral vision, denies loss of vision, denies tunnel vision/blind spots Ears: deny: decreased hearing, ear discharge, earache, tinnitus Ears, nose, mouth and throat: Reports as per HPI Breasts: absent: as per HPI, gynecomastia Cardiovascular: Reports dyspnea on exertion Respiratory: Reports cough, Reports dyspnea Gastrointestinal: Reports as per HPI Genitourinary: Reports as per HPI Musculoskeletal: Reports as per HPI Musculoskeletal: absent: ankle pain, ankle stiffness, ankle swelling, as per HPI, elbow pain, elbow stiffness, elbow swelling, foot pain, foot stiffness, foot swelling, hand pain, hand stiffness, hand swelling, hip pain, hip stiffnes s, hip swelling, knee pain, knee stiffness, knee swelling, shoulder pain, shoulder stiffness, shoulder swelling, wrist pain, wrist stiffness, wrist swelling Integumentary: Reports as per HPI Psychiatric: Reports as per HPI Endocrine: Reports as per HPI Hematologic/Lymphatic: Reports as per HPI Allergic/Immunologic: Reports as per HPI Past Medical History Past Medical History: Pneumonia (Pneumococcal right lung pneumonia), Rheumatoid Arthritis (RA) Additional Past Medical History / Comment(s): spinal cord tumor, leptomeningeal glioma, 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 History of Any Multi-Drug Resistant Organisms: None Reported Past Surgical History: Orthopedic Surgery Additional Past Surgical History / Comment(s): tumor removed 2024 Past Anesthesia/Blood Transfusion Reactions: No Reported Reaction Past Psychological History: No Psychological Hx Reported Smoking Status: Former smoker Past Alcohol Use History: None Reported Past Drug Use History: None Reported - Past Family History Father Family Medical History: Cancer Additional Family Medical History / Comment(s): colon cancer Mother Family Medical History: Cancer Additional Family Medical History / Comment(s): breast cancer Medications and Allergies Home Medications Medication Instructions Recorded Confirmed Type Multivitamins, Thera [Multivitamin 1 tab PO DAILY 10/08/24 10/15/24 History (formulary)] Sertraline [Zoloft] 50 mg PO DAILY 10/08/24 10/15/24 History cefTRIAXone [Rocephin] 2,000 mg IVP Q24HR #8 each 10/14/24 10/15/24 Rx Allergies Allergy/AdvReac Type Severity Reaction Status Date / Time tramadol AdvReac seizures Verified 10/15/24 17:35 fabric softner Allergy Rash/Hives Uncoded 10/08/24 12:44 Physical Exam Vitals: Vital Signs Temp Pulse Resp BP Pulse Ox 10/15/24 19:43 104 H 20 99/63 100 10/15/24 19:32 104 H 10/15/24 19:25 105 H 10/15/24 17:59 98.9 F 103 H 20 117/76 92 L 10/15/24 16:28 94 10/15/24 16:14 90 10/15/24 13:33 98.1 F 96 20 109/61 93 L Intake and Output 10/15/24 10/15/24 10/15/24 06:59 14:59 22:59 Other: Weight 79.379 kg The patient appeared well nourished and normally developed. Vital signs as documented. The patient is currently on room air oxygen. No respiratory distress and the patient is calm and comfortable, currently on 2 L of oxygen by nasal cannula. Head exam is unremarkable. No scleral icterus or corneal arcus noted. The cervical posterior surgical wound site is dry clean and intact. Neck is without jugular venous distension, thyromegaly, or carotid bruits. C arotid upstrokes are brisk bilaterally. Lungs are clear to auscultation and percussion. Crackles and bronchial breath sound specially on the right compared to the left. Cardiac exam reveals the PMI to be normally sized and situated. Rhythm is regular. First and second heart sounds normal. No murmurs, rubs or gallops. Abdominal exam reveals normal bowel sounds, no masses, no organomegaly and no aortic enlargement. Extremities are nonedematous and both femoral and pedal pulses are normal. The patient has a PICC line. Examination of the skin revealed no evidence of significant rashes, suspicious appearing nevi or other concerning lesions. Neurologically, the patient is awake and alert and the patient does not have any focal neurological deficit. Cranial nerves are essentially intact. Results - Laboratory Findings CBC and BMP: 10/15/24 15:20 10/15/24 15:20 PT/INR, D-dimer PT 10.8 sec (10.0-12.5) 10/15/24 15:20 INR 1.0 (<1.2) 10/15/24 15:20 D-Dimer 1.73 mg/L FEU (<0.60) H 10/15/24 15:20 Abnormal lab findings: Abnormal Labs 10/15/24 10/15/24 10/15/24 15:20 15:20 15:20 WBC 12.39 H MPV 9.4 L Immature Gran # 0.31 H Neutrophils # 9.89 H D-Dimer 1.73 H Creatinine 0.53 L - Diagnostic Findings Chest x-ray: image reviewed CT scan - chest: image reviewed Assessment and Plan Plan: Acute hypoxemic respiratory failure, secondary to extensive right lung pneumococcal pneumonia. There is some residual hypoxemia and the patient is currently on 2 L of oxygen by nasal cannula. Discharged home on room air oxygen to be readmitted within 24 hours with some ongoing hypoxemia and the patient was supplemented with oxygen at 2 L and the patient will be kept on IV Rocephin. Bilateral multifocal pneumonia, pneumococcal. The sputum Gram stain and culture showed Streptococcus pneumonia and Marta the patient was treated with IV Rocephin and the patient was supposed to complete IV Rocephin 2 g on outpatient basis via PICC line. Follow-up CTA of the chest shows residual consolidation in the right lower lobe, improved and there is some vague hazy pulmonary infiltrate in the right lower lobe and the right upper lobe to a lesser extent. Overall course, improving. No leukocytosis. 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 Prior history of tobacco use. Plan: Supplemental patient with O2 at 2 L Continue IV Rocephin and the patient has a PICC line Monitor oxygenation Incentive spirometry and pulmonary toileting Resume home medications Will continue to follow
--- NOTE | 2024-10-16 15:07 | P.PN ---
Subjective Progress Note Date: 10/16/24 This is a 38-year-old male patient with extensive right sided pneumococcal pneumonia. The patient was treated on an inpatient basis from 10/08/2024 and he was discharged on 10/14/2024 and he was supposed to complete IV Rocephin on outpatient basis. This was per IDs recommendation. Noted prior to his dis charge, the patient's oxygenation improved and the patient was able to maintain oxygen levels of above 90% on room air. His white cell count was not elevated. His blood cultures were negative. Upon being evaluated by a visiting home nurse for IV antibiotic administration, the patient was found to be hypoxic and it was advised for him to come back to the hospital. No cough. No nausea. No emesis. He has a PICC line through which he is receiving IV antibiotics. Noted, his follow-up chest x-ray showed improving right lung pulmonary infiltrate. A CTA of the chest was also done in the emergency department that showed groundglass changes and some ongoing consolidation in the lung bases right more than left and upon comparing it to the earlier CAT scan done on 10/08/2024, dense consolidation in the right lung base was essentially improving. There was however some residual hazy infiltrate in the right lower lobe and somewhat in the right upper lobe. The patient is currently hemodynamically stable. Afebrile. Placed on 2 L of oxygen by nasal cannula and his current pulse ox is 99%. Noted during his last hospitalization, the patient required BiPAP therapy, Airvo his oxygenation was gradually weaned down to be discharged home on room air oxygen. The white cell count of 12.3, hemoglobin of 14, normal coagulation profile, normal electrolytes, normal renal function, viral screen is negative, troponins are negative. On today's evaluation of 10/16/2024, the patient is being seen for a follow-up. No new complaints. Stable on 3 L by nasal cannula. Reviewed the CAT scan of the chest and the chest x-rays and the right lung consolidative and has been essentially improving although not completely recovered. Based on that, I made recommendations to continue same antibiotic coverage. No hemodynamic instability. No other significant events overnight. The patient has a PICC line and the patient will continue IV Rocephin for now for pneumococcal pneumonia. Objective - Vital Signs Vital signs: Vital Signs Temp 97.8 F 10/16/24 06:32 Pulse 88 10/16/24 13:48 Resp 18 10/16/24 13:48 BP 109/73 10/16/24 13:48 Pulse Ox 97 10/16/24 13:48 FiO2 Intake & Output 10/15/24 10/16/24 10/16/24 18:59 06:59 18:59 Weight 79.379 kg - Exam The patient appeared well nourished and normally developed. Vital signs as docum ented. The patient is currently on room air oxygen. No respiratory distress and the patient is calm and comfortable, currently on 2 L of oxygen by nasal cannula. Head exam is unremarkable. No scleral icterus or corneal arcus noted. The cervical posterior surgical wound site is dry clean and intact. Neck is without jugular venous distension, thyromegaly, or carotid bruits. Carotid upstrokes are brisk bilaterally. Lungs are clear to auscultation and percussion. Crackles and bronchial breath s ound specially on the right compared to the left. Cardiac exam reveals the PMI to be normally sized and situated. Rhythm is regular. First and second heart sounds normal. No murmurs, rubs or gallops. Abdominal exam reveals normal bowel sounds, no masses, no organomegaly and no aortic enlargement. Extremities are nonedematous and both femoral and pedal pulses are normal. The patient has a PICC line. Examination of the skin revealed no evidence of significant rashes, suspicious appearing nevi or other concerning lesions. Neurologically, the patient is awake and alert and the patient does not have any focal neurological deficit. Cranial nerves are essentially intact. - Labs CBC & Chem 7: 10/15/24 15:20 10/15/24 15:20 Labs: Abnormal Lab Results - Last 24 Hours (Table) 10/15/24 10/15/24 10/15/24 Range/Units 15:20 15:20 15:20 WBC 12.39 H (4.50-10.00) 10*3/uL MPV 9.4 L (9.5-12.2) fL Immature Gran # 0.31 H (0.00-0.04) 10*3/uL Neutrophils # 9.89 H (1.80-7.70) 10*3/uL D-Dimer 1.73 H (<0.60) mg/L FEU Creatinine 0.53 L (0.66-1.25) mg/dL Assessment and Plan Plan: Acute hypoxemic respiratory failure, secondary to extensive right lung pneumococcal pneumonia. There is some residual hypoxemia and the patient is currently on 2 L of oxygen by nasal cannula. Discharged home on room air oxygen to be readmitted within 24 hours with some ongoing hypoxemia and the patient was supplemented with oxygen at 2 L and the patient will be kept on IV Rocephin. Bilateral multifocal pneumonia, pneumococcal. The sputum Gram stain and culture showed Streptococcus pneumonia and Marta the patient was treated with IV Rocephin and the patient was supposed to complete IV Rocephin 2 g on outpatient basis via PICC line. Follow-up CTA of the chest shows residual consolidation in the right lower lobe, improved and there is some vague hazy pulmonary infiltrate in the right lower lobe and the right upper lobe to a lesser extent. Overall course, improving. No leukocytosis. 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 Prior history of tobacco use. Plan: Continue same management Supplemental patient with O2 at 2 L Continue IV Rocephin and the patient has a PICC line Reviewed the CAT scan of the chest and the chest x-ray and I believe that the right lung consolidation is is improving although is not completely recovered Monitor oxygenation Incentive spirometry and pulmonary toileting Resume home medications Will continue to follow Time with Patient: Greater than 30
[2024-10-16] MEDS: LORazepam 0.5 MG TAB PO PRN (21:04)
--- NOTE | 2024-10-17 07:14 | P.CONS ---
History of Present Illness - Reason for Consult Consult date: 10/16/24 Multifocal pneumonia Requesting physician: Jeovanny Fernández - Chief Complaint Shortness of breath and low O2 sats x 1 day - History of Present Illness Patient is a 38-year-old male with a past medical history significant for rheumatoid arthritis who was recently admitted to this facility with extensive right-sided pneumonia and sepsis secondary to strep pneumo patient had a midline and was advised IV Rocephin on discharge to finish his course of therapy because of his extensive pneumonia, the home care nurse came to teach and administer his IV Rocephin and noticed the patient to be hypoxic with O2 sats in the 60s with a dusky pallor appearance for which EMS was called and the patient has been brought into the hospital patient denies having any fever or any chills complaining of some shortness of breath on exertion right-sided chest pain has decreased intensity continue to have a cough and Some sputum no hemoptysis no nausea no vomiting no abdominal pain no diarrhea on presentation to the hospital patient was afebrile patient was not tachycardic mildly hypoxic with O2 sats of 93% is currently 96% on room air did have a white count of 12.39 creatinine 0.53 electrolytes are normal liver enzymes are normal influenza RSV COVID testing negative blood cultures obtained which are currently pending patient did have a chest x-ray followed by CT angiogram of the chest which was nondiagnostic for PE close noted opacities throughout the bilateral lung felt most likely reflecting multifocal pneumonia Review of Systems Positive point and negatives has been mentioned in the HPI, complete review of systems was performed and all other systems are negative Past Medical History Past Medical History: Pneumonia (Pneumococcal right lung pneumonia), Rheumatoid Arthritis (RA) Additional Past Medical History / Comment(s): spinal cord tumor, leptomeningeal glioma, 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 History of Any Multi-Drug Resistant Organisms: None Reported Past Surgical History: Orthopedic Surgery Additional Past Surgical History / Comment(s): tumor removed 2024 Past Anesthesia/Blood Transfusion Reactions: No Reported Reaction Past Psychological History: No Psychological Hx Reported Smoking Status: Former smoker Past Alcohol Use History: None Reported Past Drug Use History: None Reported - Past Family History Father Family Medical History: Cancer Additional Family Medical History / Comment(s): colon cancer Mother Family Medical History: Cancer Additional Family Medical History / Comment(s): breast cancer Medications and Allergies Home Medications Medication Instructions Recorded Confirmed Type Multivitamins, Thera [Multivitamin 1 tab PO DAILY 10/08/24 10/15/24 History (formulary)] Sertraline [Zoloft] 50 mg PO DAILY 10/08/24 10/15/24 History cefTRIAXone [Rocephin] 2,000 mg IVP Q24HR #8 each 10/14/24 10/15/24 Rx Allergies Allergy/AdvReac Type Severity Reaction Status Date / Time tramadol AdvReac seizures Verified 10/15/24 17:35 fabric softner Allergy Rash/Hives Uncoded 10/08/24 12:44 Physical Exam Vitals: Vital Signs Temp Pulse Resp BP Pulse Ox 10/16/24 11:25 83 16 10/16/24 11:13 79 18 10/16/24 10:26 80 18 112/78 98 10/16/24 08:19 77 10/16/24 08:12 74 16 10/16/24 06:32 97.8 F 83 18 112/71 98 10/15/24 19:43 104 H 20 99/63 100 10/15/24 19:32 104 H 10/15/24 19:25 105 H 10/15/24 17:59 98.9 F 103 H 20 117/76 92 L 10/15/24 16:28 94 10/15/24 16:14 90 10/15/24 13:33 98.1 F 96 20 109/61 93 L GENERAL DESCRIPTION: Middle-age male lying in bed, no distress. No tachypnea or accessory muscle of respiration use. HEENT: Shows Pallor , no scleral icterus. Oral mucous membrane is dry. NECK: Trachea central, no thyromegaly. LUNGS: Unlabored breathing. Decreased breath sound at the base HEART: S1, S2, regular rate and rhythm. No loud murmur ABDOMEN: Soft, no tenderness , guarding or rigidity, no organomegaly EXTREMITIES: No edema of feet. SKIN: No rash, no masses palpable. NEUROLOGICAL: The patient is awake, alert, oriented x3, mood and affect normal. Results CBC & Chem 7: 10/15/24 15:20 10/15/24 15:20 Labs: Abnormal Lab Results - Last 24 Hours (Table) 10/15/24 10/15/24 10/15/24 Range/Units 15:20 15:20 15:20 WBC 12.39 H (4.50-10.00) 10*3/uL MPV 9.4 L (9.5-12.2) fL Immature Gran # 0.31 H (0.00-0.04) 10*3/uL Neutrophils # 9.89 H (1.80-7.70) 10*3/uL D-Dimer 1.73 H (<0.60) mg/L FEU Creatinine 0.53 L (0.66-1.25) mg/dL Assessment and Plan (1) Pneumonia Current Visit: Yes Status: Acute Code(s): J18.9 - PNEUMONIA, UNSPECIFIED ORGANISM SNOMED Code(s): 058176312 Plan: 1patient with recent extensive right-sided pneumonia with sepsis secondary to strep pneumo discharged on IV Rocephin coming back to the hospital because of hypoxemia CT angiogram of the chest was nondiagnostic for PE did shows extensive multifocal pneumonia. 2patient will be treated with Rocephin 2 g daily. Question concern answered We will follow on clinical condition and cultures to further adjust medication if needed Thank you for this consultation we will follow the patient along with you Dictation was produced using [employer] dictation software. please excuse any gra mmatical, word or spelling errors. Time with Patient: Greater than 30
[2024-10-17] MEDS: SERTRALINE 50 MG TAB PO SCH (08:58)
[2024-10-17] MEDS ORDERED: BENZONATATE 100 MG CAP PO PRN (10:05)
[2024-10-17 10:41] LABS: Basophils # (A) 0.03 10*3/uL (0.00-0.10); Basophils % (A) 0.3 %; Eosinophils # (A) 0.03 10*3/uL (0.04-0.35); Eosinophils % (A) 0.3 %; HCT 40.9 % (39.6-50.0); HGB 13.6 g/dL (13.0-17.0); Lymphocytes # (A) 0.86 10*3/uL (0.90-5.00); Lymphocytes % (A) 9.6 %; MCH 29.2 pg (27.0-32.0); MCHC 33.3 g/dL (32.0-37.0); MCV 87.8 fL (80.0-97.0); Mean Platelet Volume 9.2 fL (9.5-12.2); Monocytes # (A) 0.45 10*3/uL (0.20-1.00); Neutrophils # (A) 7.47 10*3/uL (1.80-7.70); Neutrophils % (A) 83.4 %; Platelet Count 439 10*3/uL (140-440); RBC 4.66 10*6/uL (4.40-5.60); RDW 12.7 % (11.5-14.5); WBC 8.97 10*3/uL (4.50-10.00)
[2024-10-17 11:02] LABS: ALT 27 U/L (4-49); AST 22 U/L (17-59); African American GFR (CKD) >90 (>60 ml/min/1.73 sqM); Albumin 3.6 g/dL (3.5-5.0); Alkaline Phosphatase 92 U/L (38-126); Anion Gap 10 mmol/L; Blood Urea Nitrogen 16 mg/dL (9-20); Calcium 8.9 mg/dL (8.4-10.2); Carbon Dioxide 28 mmol/L (22-30); Chloride 99 mmol/L (98-107); Glucose 108 mg/dL (74-99); Non-African American GFR(CKD) >90 (>60 ml/min/1.73 sqM); Potassium 4.3 mmol/L (3.5-5.1); Sodium 137 mmol/L (137-145); Total Bilirubin 0.6 mg/dL (0.2-1.3); Total Protein 6.9 g/dL (6.3-8.2)
--- NOTE | 2024-10-17 11:21 | P.PN ---
Subjective Progress Note Date: 10/17/24 This is a 38-year-old male patient with extensive right sided pneumococcal pneumonia. The patient was treated on an inpatient basis from 10/08/2024 and he was discharged on 10/14/2024 and he was supposed to complete IV Rocephin on outpatient basis. This was per IDs recommendation. Noted prior to his disc harge, the patient's oxygenation improved and the patient was able to maintain oxygen levels of above 90% on room air. His white cell count was not elevated. His blood cultures were negative. Upon being evaluated by a visiting home nurse for IV antibiotic administration, the patient was found to be hypoxic and it was advised for him to come back to the hospital. No cough. No nausea. No emesis. He has a PICC line through which he is receiving IV antibiotics. Noted, his follow-up chest x-ray showed improving right lung pulmonary infiltrate. A CTA of the chest was also done in the emergency department that showed groundglass changes and some ongoing consolidation in the lung bases right more than left and upon comparing it to the earlier CAT scan done on 10/08/2024, dense consolidation in the right lung base was essentially improving. There was however some residual hazy infiltrate in the right lower lobe and somewhat in the right upper lobe. The patient is currently hemodynamically stable. Afebrile. Placed on 2 L of oxygen by nasal cannula and his current pulse ox is 99%. Noted during his last hospitalization, the patient required BiPAP therapy, Airvo his oxygenation was gradually weaned down to be discharged home on room air oxygen. The white cell count of 12.3, hemoglobin of 14, normal coagulation profile, normal electrolytes, normal renal function, viral screen is negative, troponins are negative. On today's evaluation of 10/16/2024, the patient is being seen for a follow-up. No new complaints. Stable on 3 L by nasal cannula. Reviewed the CAT scan of the chest and the chest x-rays and the right lung consolidative and has been essentially improving although not completely recovered. Based on that, I made recommendations to continue same antibiotic coverage. No hemodynamic instability. No other significant events overnight. The patient has a PICC l ine and the patient will continue IV Rocephin for now for pneumococcal pneumonia. The patient is seen today October 17, 2024 in follow-up on the regular medical floor. He is currently sitting up in bed. Awake and alert in no acute distress. Maintaining good O2 saturations in the upper 90s on 2 L/min per nasal cannula. He has been afebrile. Hemodynamically stable. Feeling a bit better today compared to yesterday. Blood cultures pending. White count 8.9. Hemoglobin 13.6. Platelets 439. Sodium 137. Potassium 4.3. Bicarb 28. BUN 16. Creatinine 0.44. Glucose 108. He remains on DuoNeb inhalations, Tessalon Perles, Mucinex. Antibiotics in the form of ceftriaxone. Lovenox for DVT pro phylaxis. Objective - Vital Signs Vital signs: Vital Signs Temp 97.7 F 10/17/24 07:46 Pulse 88 10/17/24 09:06 Resp 18 10/17/24 09:06 BP 118/74 10/17/24 07:46 Pulse Ox 98 10/17/24 08:56 FiO2 - Exam GENERAL EXAM: Alert, active, very pleasant 38-year-old male, sitting up in bed, on 2 L nasal cannula, comfortable in no apparent distress. HEAD: Normocephalic. EYES: Normal reaction of pupils, equal size. NOSE: Clear with pink turbinates. THROAT: No erythema or exudates. NECK: No masses, no JVD. Posterior cervical surgical wound site is clean, dry and intact CHEST: No chest wall deformity. LUNGS: Equal air entry with few scattered rhonchi. CVS: S1 and S2 normal with no audible murmur, regular rhythm. ABDOMEN: No hepatosplenomegaly, normal bowel sounds, no guarding or rigidity. SPINE: No scoliosis or deformity SKIN: No rashes CENTRAL NERVOUS SYSTEM: No focal deficits, tone is normal in all 4 extremities. EXTREMITIES: Left upper extremity PICC line in place. There is no peripheral edema. No clubbing, no cyanosis. Peripheral pulses are intact. - Labs CBC & Chem 7: 10/17/24 10:13 10/17/24 10:13 Labs: Abnormal Lab Results - Last 24 Hours (Table) 10/17/24 10/17/24 Range/Units 10:13 10:13 MPV 9.2 L (9.5-12.2) fL Immature Gran # 0.13 H (0.00-0.04) 10*3/uL Lymphocytes # 0.86 L (0.90-5.00) 10*3/uL Eosinophils # 0.03 L (0.04-0.35) 10*3/uL Creatinine 0.44 L (0.66-1.25) mg/dL Glucose 108 H (74-99) mg/dL Microbiology - Last 24 Hours (Table) 10/15/24 18:41 Blood Culture - Preliminary Blood Assessment and Plan Assessment: Acute hypoxemic respiratory failure, secondary to extensive right lung pneumococcal pneumonia. There is some residual hypoxemia he is currently on 2 L of oxygen by nasal cannula. Discharged home on room air oxygen to be readmitted within 24 hours with some ongoing hypoxemia and the patient was supplemented with oxygen at 2 L and the patient will be kept on IV Rocephin Bilateral multifocal pneumonia, pneumococcal. The sputum Gram stain and culture showed Streptococcus pneumonia and Marta the patient was treated with IV Rocephin and the patient was supposed to complete IV Rocephin 2 g on outpatient basis via PICC line. Follow-up CTA of the chest shows residual consolidation in the right lower lobe, improved and there is some vague hazy pulmonary infiltrate in the right lower lobe and the right upper lobe to a lesser extent. Overall course, improving. 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 This patient was seen independently by the pulmonary nurse practitioner addressing pulmonary issues I have personally seen and examined the patient, performed the documentation and the assessment and plan as written. Number of minutes spent on the visit: 25 Dictation was produced using [employer] dictation software. Please excuse any grammatical, word or spelling errors.
[2024-10-17] MEDS: guaiFENesin 600 MG TABLET.ER PO SCH (13:33)
--- NOTE | 2024-10-17 13:33 | P.PN ---
Subjective Progress Note Date: 10/17/24 patient is 38-year-old gentleman with past medical history significant for malignant spinal cord tumor who was recently discharged from the hospital after being treated for pneumonia, patient was discharged on IV Rocephin. Patient stated he was all right yesterday when he started noticing that he was getting short of breath. Shortness of breath was present on rest. Patient had a home care nurse that was visiting him for administration of IV antibiotics and found him to be low on oxygen, his oxygen saturation was in the 60s. There was no complaint of fever or chills. There was no complaint of cough. Patient denies any chest pain. There is no complaint of orthopnea or PND. Because of this jan rtness of breath, patient was told to come back to the ER. Initial lab work done in the ER showed WBC 12.39, hemoglobin 14.3, platelet count 408, D-dimer 1.73, sodium 131, potassium 4.8, BUN 18, creatinine 0.53, glucose 93, calcium 8.8, magnesium 2, troponin 0.012, Influenza A not detected Influenza B not detected RSV not detected COVID-19 not detected EKG done in the ER showed heart rate of 76, no ST segment elevation or depression seen, no T-wave inversions seen. Chest x-ray done in the ER showed bilateral interstitial patchy opacities suspicious for multifocal pneumonia. CT chest PE protocol done showed groundglass and consolidative opacities throughout the bilateral lungs felt to most likely reflect multifocal pneumonia Patient admitted to internal medicine service 10/17. Patient seen and examined.. Vital signs reviewed temperature 97.7, heart rate 79, respirations 16, blood pressure 118/74 states breathing is slightly improved. REVIEW OF SYSTEMS: CONSTITUTIONAL: No fever, no malaise,. CARDIOVASCULAR: No chest pain, no palpitations, no syncope. PULMONARY: As mentioned above GASTROINTESTINAL: No diarrhea, no nausea, no vomiting, no abdominal pain. NEUROLOGICAL: No headaches, no weakness, PHYSICAL EXAMINATION: GENERAL: The patient is alert and oriented x3, not in any acute distress. Well developed, well nourished. HEENT: Pupils are round and equally reacting to light. EOMI. No scleral icterus. No conjunctival pallor. Normocephalic, atraumatic. No pharyngeal erythema. No thyromegaly. CARDIOVASCULAR: S1 and S2 present. No murmurs, rubs, or gallops. PULMONARY: Coarse breath sounds bilaterally, no wheezing or crackles. ABDOMEN: Soft, nontender, nondistended, normoactive bowel sounds. No palpable organomegaly. MUSCULOSKELETAL: No joint swelling or deformity. EXTREMITIES: No cyanosis, clubbing, or pedal edema. NEUROLOGICAL: Gross neurological examination did not reveal any focal deficits. SKIN: No rashes. Assessment and plan Acute hypoxemic respiratory failure Bacterial pneumonia, gram-positive gram-negative S/P MRI, October 07, requiring intubation, and general anesthesia. Resection of malignant spinal cord tumor, June 2024. History of rheumatoid arthritis. Prior history of tobacco use. Monitor vital signs Monitor CBC Monitor CMP Continue telemetry monitoring Follow-up on blood cultures Follow-up on sputum cultures Breathing treatments Continue IV Rocephin Ordered Mucinex Ordered Tessalon DC fluids Pulmonary following ID following Labs and medication were reviewed.. Continue same treatment. Continue with symptomatic treatment. Resume home medication. Monitor labs and vitals. DVT and GI prophylaxis. Further recommendations as per clinical course of the patient Dictation was produced using [email or web address] dictation software. please excuse any grammatical, word or spelling errors. Objective - Vital Signs Vital signs: Vital Signs Temp 97.7 F 10/17/24 07:46 Pulse 88 10/17/24 09:06 Resp 18 10/17/24 09:06 BP 118/74 10/17/24 07:46 Pulse Ox 98 10/17/24 08:56 FiO2 - Labs CBC & Chem 7: 10/17/24 10:13 10/17/24 10:13 Labs: Microbiology - Last 24 Hours (Table) 10/15/24 18:41 Blood Culture - Preliminary Blood
--- NOTE | 2024-10-17 16:33 | P.PN ---
Subjective Progress Note Date: 10/17/24 Principal diagnosis: Reason for follow-up is pneumonia Patient is a 38-year-old male with a past medical history significant for rheumatoid arthritis who was recently admitted to this facility with extensive right-sided pneumonia and sepsis secondary to strep pneumo presenting back to the hospital because of hypoxemia and shortness of breath. On today's evaluation that is 10/17/2024, the patient continues to be afebrile, the patient is on room air and breathing comfortably, the Pt denies having any chest pain or worsening cough, the patient denies having any abdominal pain no vomiting or any diarrhea. Patient white count normalized to 8.97, creatinine 0.44 blood culture have been negative so far Objective - Vital Signs Vital signs: Vital Signs Temp 97.7 F 10/17/24 07:46 Pulse 88 10/17/24 12:48 Resp 18 10/17/24 12:37 BP 118/74 10/17/24 07:46 Pulse Ox 98 10/17/24 08:56 FiO2 - Exam GENERAL DESCRIPTION: Middle-age male lying in bed in no distress RESPIRATORY SYSTEM: Unlabored breathing , decreased breath sounds at bases HEART: S1 S2 regular rate and rhythm , ABDOMEN: Soft , no tenderness EXTREMITIES: No edema feet - Labs CBC & Chem 7: 10/17/24 10:13 10/17/24 10:13 Labs: Abnormal Lab Results - Last 24 Hours (Table) 10/17/24 10/17/24 Range/Units 10:13 10:13 MPV 9.2 L (9.5-12.2) fL Immature Gran # 0.13 H (0.00-0.04) 10*3/uL Lymphocytes # 0.86 L (0.90-5.00) 10*3/uL Eosinophils # 0.03 L (0.04-0.35) 10*3/uL Creatinine 0.44 L (0.66-1.25) mg/dL Glucose 108 H (74-99) mg/dL Microbiology - Last 24 Hours (Table) 10/15/24 18:41 Blood Culture - Preliminary Blood Assessment and Plan (1) Pneumonia Current Visit: Yes Status: Acute Code(s): J18.9 - PNEUMONIA, UNSPECIFIED ORGANISM SNOMED Code(s): 736622191 Plan: 1patient with recent extensive right-sided pneumonia with sepsis secondary to strep pneumo discharged on IV Rocephin coming back to the hospital because of hypoxemia CT angiogram of the chest was nondiagnostic for PE did shows extensive multifocal pneumonia. 2patient white count is normal afebrile off supplemental oxygen continue with Rocephin to finish his course of therapy Dictation was produced using [employer] dictation software. please excuse any grammatical, word or spelling errors. Time with Patient: Less than 30
[2024-10-18 01:17] VITALS: RESP 16
[2024-10-18 07:17] LABS: Basophils # (A) 0.03 10*3/uL (0.00-0.10); Basophils % (A) 0.4 %; Eosinophils # (A) 0.04 10*3/uL (0.04-0.35); Eosinophils % (A) 0.6 %; HCT 40.3 % (39.6-50.0); HGB 13.2 g/dL (13.0-17.0); Lymphocytes # (A) 0.87 10*3/uL (0.90-5.00); Lymphocytes % (A) 12.5 %; MCHC 32.8 g/dL (32.0-37.0); MCV 88.6 fL (80.0-97.0); Mean Platelet Volume 9.1 fL (9.5-12.2); Monocytes # (A) 0.47 10*3/uL (0.20-1.00); Monocytes % (A) 6.8 %; Neutrophils # (A) 5.48 10*3/uL (1.80-7.70); Neutrophils % (A) 78.7 %; Platelet Count 479 10*3/uL (140-440); RBC 4.55 10*6/uL (4.40-5.60); RDW 12.5 % (11.5-14.5); WBC 6.96 10*3/uL (4.50-10.00)
--- NOTE | 2024-10-18 07:36 | XR ---
EXAMINATION TYPE: XR chest 1V portable DATE OF EXAM: 10/18/2024 5:13 AM COMPARISON: 10/15/2024 CLINICAL INDICATION: Male, 38 years old with history of Pneumonia, , FINDINGS: Heart borderline enlarged. Mild hyperinflation. Mild interstitial densities. Similar slight elevation left hemidiaphragm with blunted lateral costophrenic angle. IMPRESSION: Borderline cardiomegaly with similar mild scattered interstitial infiltrates. Trace left pleural effu triston. [facility], Workstation: [employer] CouncilLAURA, 10/18/2024 7:34 AM
[2024-10-18 07:39] LABS: ALT 25 U/L (4-49); AST 20 U/L (17-59); African American GFR (CKD) >90 (>60 ml/min/1.73 sqM); Albumin 3.6 g/dL (3.5-5.0); Alkaline Phosphatase 92 U/L (38-126); Anion Gap 9 mmol/L; Blood Urea Nitrogen 14 mg/dL (9-20); Carbon Dioxide 29 mmol/L (22-30); Chloride 99 mmol/L (98-107); Glucose 102 mg/dL (74-99); Non-African American GFR(CKD) >90 (>60 ml/min/1.73 sqM); Potassium 4.8 mmol/L (3.5-5.1); Sodium 137 mmol/L (137-145); Total Bilirubin 0.6 mg/dL (0.2-1.3); Total Protein 7.1 g/dL (6.3-8.2)
[2024-10-18 08:27] VITALS: BP 109/65; TEMP 97.7
[2024-10-18 09:08] VITALS: BMI 22.4
[2024-10-18] MEDS: HYDROcodone/APAP 5-325MG 1 EACH TAB PO PRN (09:11)
[2024-10-18 10:07] VITALS: PULSE 63
--- NOTE | 2024-10-18 10:47 | P.DS ---
Providers Date of admission: 10/15/24 17:48 Expected date of discharge: 10/18/24 Attending physician: Sangeetha Dale Consults: 10/15/24 17:48 Consult Physician Routine Consulting Provider: Sherif Pacheco Consult Reason/Comments: Multifocal pneumonia Do you want consulting provider notified?: Yes 10/15/24 18:05 Consult Physician Routine Consulting Provider: Joceline Fitzgerald Consult Reason/Comments: PNA Do you want consulting provider notified?: Yes Primary care physician: Shon Aggarwal Hospital Course: Discharge diagnoses; Acute hypoxemic respiratory failure Bacterial pneumonia, gram-positive gram-negative S/P MRI, October 07, requiring intubation, and general anesthesia. Resection of malignant spinal cord tumor, June 2024. History of rheumatoid arthritis. Prior history of tobacco use. Hospital course; patient is 38-year-old gentleman with past medical history significant for malignant spinal cord tumor who was recently discharged from the hospital after being treated for pneumonia, patient was discharged on IV Rocephin. Patient stated he was all right yesterday when he started noticing that he was getting short of breath. Shortness of breath was present on rest. Patient had a home care nurse that was visiting him for administration of IV antibiotics and found him to be low on oxygen, his oxygen saturation was in the 60s. There was no complaint of fever or chills. There was no complaint of cough. Patient denies any chest pain. There is no complaint of orthopnea or PND. Because of this shortness of breath, patient was told to come back to the ER. Initial lab work done in the ER showed WBC 12.39, hemoglobin 14.3, platelet count 408, D-dimer 1.73, sodium 131, potassium 4.8, BUN 18, creatinine 0.53, glucose 93, calcium 8.8, magnesium 2, troponin 0.012, Influenza A not detected Influenza B not detected RSV not detected COVID-19 not detected EKG done in the ER showed heart rate of 76, no ST segment elevation or depressi on seen, no T-wave inversions seen. Chest x-ray done in the ER showed bilateral interstitial patchy opacities suspicious for multifocal pneumonia. CT chest PE protocol done showed groundglass and consolidative opacities throughout the bilateral lungs felt to most likely reflect multifocal pneumonia Patient admitted to internal medicine service 10/17. Patient seen and examined.. Vital signs reviewed temperature 97.7, heart rate 79, respirations 16, blood pressure 118/74 states breathing is slightly improved. 10/18. Patient seen and examined. No acute issues overnight. ID recommended to continue Rocephin as was prescribed in previous admission. Pulmonology cleared the patient for discharge as well. Patient walking oxygen pulse ox done prior to discharge, not requiring any oxygen PHYSICAL EXAMINATION: GENERAL: The patient is alert and oriented x3, not in any acute distress. Well developed, well nourished. HEENT: Pupils are round and equally reacting to light. EOMI. No scleral icterus. No conjunctival pallor. Normocephalic, atraumatic. No pharyngeal erythema. No thyromegaly. CARDIOVASCULAR: S1 and S2 present. No murmurs, rubs, or gallops. PULMONARY: Chest is clear to auscultation, no wheezing or crackles. ABDOMEN: Soft, nontender, nondistended, normoactive bowel sounds. No palpable organomegaly. MUSCULOSKELETAL: No joint swelling or deformity. EXTREMITIES: No cyanosis, clubbing, or pedal edema. NEUROLOGICAL: Gross neurological examination did not reveal any focal deficits. SKIN: No rashes. Dictation was produced using [employer] dictation software. please excuse any grammatical, word or spelling errors. Patient Condition at Discharge: Stable Plan - Discharge Summary Discharge Rx Participant: No New Discharge Prescriptions: New guaiFENesin [Mucinex] 600 mg PO Q12HR 7 Days #14 tab HYDROcodone/APAP 5-325MG [Row[place] 5-325] 1 each PO Q8HR PRN 3 Days #9 tab PRN Reason: Pain Continue Sertraline [Zoloft] 50 mg PO DAILY Multivitamins, Thera [Multivitamin (formulary)] 1 tab PO DAILY cefTRIAXone [Rocephin] 2,000 mg IVP Q24HR #8 each Discharge Medication List Multivitamins, Thera [Multivitamin (formulary)] 1 tab PO DAILY 10/08/24 [History] Sertraline [Zoloft] 50 mg PO DAILY 10/08/24 [History] cefTRIAXone [Rocephin] 2,000 mg IVP Q24HR #8 each 10/14/24 [Rx] HYDROcodone/APAP 5-325MG [Row[place] 5-325] 1 each PO Q8HR PRN 3 Days #9 tab 10/18/24 [Rx] guaiFENesin [Mucinex] 600 mg PO Q12HR 7 Days #14 tab 10/18/24 [Rx] Follow up Appointment(s)/Referral(s): Roberto Flores MD [STAFF PHYSICIAN] - 1 Week Shon Aggarwal MD [Primary Care Provider] - 1-2 days Sherif Pacheco MD [STAFF PHYSICIAN] - 1 Week Discharge Disposition: HOME SELF-CARE
--- NOTE | 2024-10-18 12:33 | P.PN ---
Subjective Progress Note Date: 10/18/24 This is a 38-year-old male patient with extensive right sided pneumococcal pneumonia. The patient was treated on an inpatient basis from 10/08/2024 and he was discharged on 10/14/2024 and he was supposed to complete IV Rocephin on outpatient basis. This was per IDs recommendation. Noted prior to his disc harge, the patient's oxygenation improved and the patient was able to maintain oxygen levels of above 90% on room air. His white cell count was not elevated. His blood cultures were negative. Upon being evaluated by a visiting home nurse for IV antibiotic administration, the patient was found to be hypoxic and it was advised for him to come back to the hospital. No cough. No nausea. No emesis. He has a PICC line through which he is receiving IV antibiotics. Noted, his follow-up chest x-ray showed improving right lung pulmonary infiltrate. A CTA of the chest was also done in the emergency department that showed groundglass changes and some ongoing consolidation in the lung bases right more than left and upon comparing it to the earlier CAT scan done on 10/08/2024, dense consolidation in the right lung base was essentially improving. There was however some residual hazy infiltrate in the right lower lobe and somewhat in the right upper lobe. The patient is currently hemodynamically stable. Afebrile. Placed on 2 L of oxygen by nasal cannula and his current pulse ox is 99%. Noted during his last hospitalization, the patient required BiPAP therapy, Airvo his oxygenation was gradually weaned down to be discharged home on room air oxygen. The white cell count of 12.3, hemoglobin of 14, normal coagulation profile, normal electrolytes, normal renal function, viral screen is negative, troponins are negative. On today's evaluation of 10/16/2024, the patient is being seen for a follow-up. No new complaints. Stable on 3 L by nasal cannula. Reviewed the CAT scan of the chest and the chest x-rays and the right lung consolidative and has been essentially improving although not completely recovered. Based on that, I made recommendations to continue same antibiotic coverage. No hemodynamic instability. No other significant events overnight. The patient has a PICC l ine and the patient will continue IV Rocephin for now for pneumococcal pneumonia. The patient is seen today October 17, 2024 in follow-up on the regular medical floor. He is currently sitting up in bed. Awake and alert in no acute distress. Maintaining good O2 saturations in the upper 90s on 2 L/min per nasal cannula. He has been afebrile. Hemodynamically stable. Feeling a bit better today compared to yesterday. Blood cultures pending. White count 8.9. Hemoglobin 13.6. Platelets 439. Sodium 137. Potassium 4.3. Bicarb 28. BUN 16. Creatinine 0.44. Glucose 108. He remains on DuoNeb inhalations, Tessalon Perles, Mucinex. Antibiotics in the form of ceftriaxone. Lovenox for DVT pro phylaxis. The patient is seen today October 18, 2024 in follow-up in the regular medical floor. He is currently sitting up in bed. Awake and alert in no acute distress. Maintaining O2 saturations in the mid 90s on 2 L/min per nasal cannula. Has been afebrile. Hemodynamically stable. Chest x-ray shows borderline cardiomegaly with similar mild scattered interstitial infiltrates. Trace left pleural effusion. White count 6.9. Hemoglobin 13.2. Platelets 479. Sodium 137. Potassium 4.8. Bicarb 29. BUN 14. Creatinine 0.51. Glucose 102. He is continued on DuoNeb inhalations. Antibiotics in the form of ceftriaxone. Lovenox for DVT prophylaxis. Tessalon for his cough. Objective - Vital Signs Vital signs: Vital Signs Temp 97.7 F 10/18/24 07:00 Pulse 81 10/18/24 09:25 Resp 16 10/18/24 07:00 BP 109/65 10/18/24 07:00 Pulse Ox 95 10/18/24 09:16 FiO2 Intake & Output 10/17/24 10/18/24 10/18/24 18:59 06:59 18:59 Intake Total 200 Balance 200 Weight 79.379 kg 79.379 kg Intake: Oral 200 Other: # Voids 3 1 # Bowel Movements 1 - Exam GENERAL EXAM: Alert, pleasant 38-year-old male, sitting up in bed, on 2 L nasal cannula, in no apparent distress. HEAD: Normocephalic. EYES: Normal reaction of pupils, equal size. NOSE: Clear with pink turbinates. THROAT: No erythema or exudates. NECK: No masses, no JVD. Posterior cervical surgical wound site is clean, dry and intact CHEST: No chest wall deformity. LUNGS: Equal air entry with few scattered rhonchi. CVS: S1 and S2 normal with no audible murmur, regular rhythm. ABDOMEN: No hepatosplenomegaly, normal bowel sounds, no guarding or rigidity. SPINE: No scoliosis or deformity SKIN: No rashes CENTRAL NERVOUS SYSTEM: No focal deficits, tone is normal in all 4 extremities. EXTREMITIES: Left upper extremity PICC line in place. There is no peripheral edema. No clubbing, no cyanosis. Peripheral pulses are intact. - Labs CBC & Chem 7: 10/18/24 06:16 10/18/24 06:16 Labs: Abnormal Lab Results - Last 24 Hours (Table) 10/18/24 10/18/24 Range/Units 06:16 06:16 Plt Count 479 H (140-440) 10*3/uL MPV 9.1 L (9.5-12.2) fL Immature Gran # 0.07 H (0.00-0.04) 10*3/uL Lymphocytes # 0.87 L (0.90-5.00) 10*3/uL Creatinine 0.51 L (0.66-1.25) mg/dL Glucose 102 H (74-99) mg/dL Microbiology - Last 24 Hours (Table) 10/15/24 18:41 Blood Culture - Preliminary Blood Assessment and Plan Assessment: Acute hypoxemic respiratory failure, secondary to extensive right lung pneumococcal pneumonia. There is some residual hypoxemia he is currently on 2 L of oxygen by nasal cannula. Discharged home on room air oxygen to be readmitted within 24 hours with some ongoing hypoxemia and the patient was supplemented with oxygen at 2 L and the patient remains on IV Rocephin Bilateral multifocal pneumonia, pneumococcal. The sputum Gram stain and culture showed Streptococcus pneumonia and Marta the patient was treated with IV Rocephin and the patient was supposed to complete IV Rocephin 2 g on outpatient basis via PICC line. Follow-up CTA of the chest shows residual consolidation in the right lower lobe, improved and there is some vague hazy pulmonary infiltrate in the right lower lobe and the right upper lobe to a lesser extent. Overall course, improving. 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 Fitzgerald 1 week This patient was seen independently by the pulmonary nurse practitioner addressing pulmonary issues I have personally seen and examined the patient, performed the documentation and the assessment and plan as written. Number of minutes spent on the visit: 23` Dictation was produced using [employer] dictation software. Please excuse any grammatical, word or spelling errors.
--- NOTE | 2024-10-18 13:45 | P.PN ---
Subjective Progress Note Date: 10/18/24 Principal diagnosis: Reason for follow-up is pneumonia Patient is a 38-year-old male with a past medical history significant for rheumatoid arthritis who was recently admitted to this facility with extensive right-sided pneumonia and sepsis secondary to strep pneumo presenting back to the hospital because of hypoxemia and shortness of breath. On today's evaluation that is 10/18/2024, Patient is afebrile patient is currently on room air and denies having any shortness of breath, the patient right-sided chest pain and cough decrease in intensity, the patient denies any nausea vomiting did not have any abdominal pain and no diarrhea, feeling better wants to go home. Patient white count 6.96, creatinine 0.51 blood culture have been negative Objective - Vital Signs Vital signs: Vital Signs Temp 97.7 F 10/18/24 07:00 Pulse 81 10/18/24 09:25 Resp 16 10/18/24 07:00 BP 109/65 10/18/24 07:00 Pulse Ox 95 10/18/24 09:16 FiO2 Intake & Output 10/17/24 10/18/24 10/18/24 18:59 06:59 18:59 Intake Total 200 Balance 200 Weight 79.379 kg 79.379 kg Intake: Oral 200 Other: # Voids 3 1 # Bowel Movements 1 - Exam GENERAL DESCRIPTION: Middle-age male lying in bed in no distress RESPIRATORY SYSTEM: Unlabored breathing , decreased breath sounds at bases HEART: S1 S2 regular rate and rhythm , ABDOMEN: Soft , no tenderness EXTREMITIES: No edema feet - Labs CBC & Chem 7: 10/18/24 06:16 10/18/24 06:16 Labs: Abnormal Lab Results - Last 24 Hours (Table) 10/18/24 10/18/24 Range/Units 06:16 06:16 Plt Count 479 H (140-440) 10*3/uL MPV 9.1 L (9.5-12.2) fL Immature Gran # 0.07 H (0.00-0.04) 10*3/uL Lymphocytes # 0.87 L (0.90-5.00) 10*3/uL Creatinine 0.51 L (0.66-1.25) mg/dL Glucose 102 H (74-99) mg/dL Microbiology - Last 24 Hours (Table) 10/15/24 18:41 Blood Culture - Preliminary Blood Assessment and Plan (1) Pneumonia Status: Acute Code(s): J18.9 - PNEUMONIA, UNSPECIFIED ORGANISM SNOMED Code(s): 554621812 Plan: 1patient with recent extensive right-sided pneumonia with sepsis secondary to strep pneumo discharged on IV Rocephin coming back to the hospital because of hypoxemia CT angiogram of the chest was nondiagnostic for PE did shows extensive multifocal pneumonia. 2patient white count is normal she is afebrile blood culture has been negative so far he will continue with IV Rocephin to finish his course of therapy this was discussed with admitting physician Dictation was produced using [employer] dictation software. please excuse any grammatical, word or spelling errors. Time with Patient: Less than 30
== END 2024-10-18 13:01 | disposition home or self-care (01) | DRG 189 ==
LOC: EC 13:30 → 6NMEDSUR 17:48 → OBSVTOIN 17:48 → 6NMEDSUR 20:52 → 1SOBS 10-17 05:41
PROVIDERS: ADMIT Hospitalist; ATTEND Hospitalist
DX: J96.01 Acute respiratory failure with hypoxia (principal); A40.9 Streptococcal sepsis, unspecified; J13 Pneumonia due to Streptococcus pneumoniae; C72.0 Malignant neoplasm of spinal cord; M06.9 Rheumatoid arthritis, unspecified; Z87.891 Personal history of nicotine dependence; Z97.8 Presence of other specified devices; Z79.899 Other long term (current) drug therapy
CPT/HCPCS: 36415; 71045; 71046; 71275; 80053; 83605; 83735; 84484; 85025; 85379; 85610; 85730; 87040; 87636; 93005; 94640; 96361; 96365; 96366; 96367; 96372; 96375; 96376; 99285

== ENCOUNTER → 2024-11-28 | Outpatient (CLI) | payer BC ==
--- NOTE | 2024-11-28 11:47 | US ---
EXAMINATION TYPE: US kidneys/renal and bladder DATE OF EXAM: 11/28/2024 COMPARISON: CT, US 2022 CLINICAL INDICATION: Male, 39 years old with history of N13.9 OBSTRUCTIVE REFLUX UROPATHY, UNSPEC; Ur inary obstruction. Hx kidney stones. Hx spinal tumor with surgery. TECHNIQUE: Grayscale imaging of the bilateral kidneys and urinary bladder: FINDINGS: EXAM MEASUREMENTS: Right Kidney: 12.6 x 7.1 x 5.7 cm Left Kidney: 11.9 x 6.8 x 6.4 cm Post Void Residual Volume: 59.1 mL Right Kidney: Hyperechoic focus seen upper pole: 0.8 x 0.6 x 0.4 cm Anechoic area seen:1.9 x 1.8 x 1.6 cm. Left Kidney: 2 hyperechoic foci seen, one is at mid: 0.5 x 0.6 x 0.3 cm. and the other is at lower pole: 0.6 x 0.5 x 0.2 cm. Isoechoic/complex, mostly solid appearing area seen at mid: 3.3 x 3.1 x 3.8 cm. Bladder: Internal echoes/debris seen within the bladder. Hyperechoic area seen attached to wall: 0.6 x 1.4 x 0.3 cm. Bilateral Jets seen: Yes Normal Post Void Residual: No No hydronephrosis. Right renal upper pole subcentimeter nonobstructing calculus. Simple cyst versus d ilated calyx identified. There are 2 nonobstructing left renal calculi. Complex solid appearing lesio n within the mid left kidney measuring up to 3.8 cm. This is consistent with a column of Amaury on pr ior CT. Corticomedullary differentiation is maintained bilaterally. Small hyperechoic polypoid lesion identified within the urinary bladder. Additional internal debris/echoes within the urinary bladder. Bilateral ureteral jets identified. Abnormal postvoid residual of 59.1 mL. IMPRESSION: 1. No hydronephrosis. 2. Nonobstructing bilateral renal calculi. 3. Left mid kidney column of Amaury corresponding to prior CT. 4. Nonspecific debris within the urinary bladder with small hyperechoic polypoid lesion identified. M ay represent additional debris versus small lesion. Recommend further evaluation with CT urogram. 5. Abnormal postvoid residual of 59.1 mL. [facility], , 11/28/2024 11:45 AM
== END | disposition home or self-care (01) ==
LOC: RADUSWWP 09:54
PROVIDERS: ATTEND Family Medicine
DX: N13.9 Obstructive and reflux uropathy, unspecified (principal); N20.0 Calculus of kidney; N32.89 Other specified disorders of bladder; R39.198 Other difficulties with micturition
CPT/HCPCS: 76770